=== PATIENT | male | born 1965 | race Caucasian/White ===

== ENCOUNTER 2017-06-23 09:48 | Emergency (ER) | payer MEDICAID ==
[~2017-06-23] VITALS: Ht 182.9 cm; Wt 54.0 kg
[2017-06-23 12:01] VITALS: BP 128/78
== END 2017-06-23 12:01 | disposition home or self-care (01) ==
LOC: ED 09:48
DX: R33.9 Retention of urine, unspecified (principal); K59.00 Constipation, unspecified; I50.9 Heart failure, unspecified; Z88.6 Allergy status to analgesic agent; Z88.0 Allergy status to penicillin
CPT/HCPCS: Q0092

== ENCOUNTER 2017-07-22 21:36 | Emergency (ER) | payer MEDICAID ==
[2017-07-23] VITALS: BP 145/91
== END 2017-07-23 00:01 | disposition home or self-care (01) ==
LOC: ED 21:36
DX: T83.038A Leakage of other urinary catheter, initial encounter (principal); I50.9 Heart failure, unspecified; Z88.6 Allergy status to analgesic agent; Z88.0 Allergy status to penicillin

== ENCOUNTER 2017-09-07 15:09 | Emergency (ER) | payer MEDICAID ==
[~2017-09-07] VITALS: Ht 182.9 cm; Wt 53.1 kg
[2017-09-07 15:18] VITALS: Ht 182.9 cm; Wt 53.1 kg
[2017-09-07 16:27] LABS: BASOPHIL % 0.7 % (0-2); PLATELET COUNT 137 x10^3mcL (130-400)
[2017-09-07 16:30] LABS: RED CELL DISTRIBUTION WIDTH 14.6 % (11.5-14.5)
[2017-09-07 16:34] LABS: CALCIUM 8.7 mg/dL (8.5-10.1); CARBON DIOXIDE 34.9 mmol/L (21-32); CHLORIDE SERUM 101 mmol/L (98-107); CREATININE SERUM 1.1 mg/dL (0.7-1.3); GFR1 > 60 mL/min; GLUCOSE SERUM 91 mg/dL (74-106); POTASSIUM SERUM 3.1 mmol/L (3.5-5.1); SODIUM SERUM 141 mmol/L (136-145)
[2017-09-07 16:39] LABS: ALKALINE PHOSPHATASE 74 U/L (46-116); ALT/SGPT 134 U/L (16-63); AST/SGOT 125 U/L (15-37); BILIRUBIN TOTAL 0.4 mg/dL (0.20-1.00)
[2017-09-07 16:44] LABS: ALBUMIN 3.1 g/dL (3.4-5.0); TOTAL PROTEIN, SERUM 8.4 g/dL (6.4-8.2)
[2017-09-07 17:21] LABS: CK-MB 2.2 ng/mL (0-3.6)
[2017-09-07 17:23] LABS: T3 TOTAL 1.29 ng/mL
[2017-09-07 17:33] LABS: FREE T4 1.15 ng/dL (0.76-1.46); FREE THYROXINE INDEX 3.3 ug/dL (1.4-4.5); T4(THYROXINE) 10.9 ug/dL (4.7-13.3)
[2017-09-07 17:58] VITALS: BP 165/119
[2017-09-07 17:58] LABS: C REACTIVE PROTEIN 0.3 mg/dL (<=0.9)
[2017-09-07 20:07] LABS: microscopic required? YES; urine erythrocyte 2+ (NEGATIVE)
[2017-09-07 20:18] LABS: AMPHETAMINE QUAL UR POSITIVE (NEG <=1000)
== END 2017-09-07 19:16 | disposition home or self-care (01) ==
LOC: ED 15:09
PROVIDERS: Specialist
DX: R20.2 Paresthesia of skin (principal); E87.6 Hypokalemia; I50.9 Heart failure, unspecified; Z88.6 Allergy status to analgesic agent
CPT/HCPCS: 36415; 83880; 84439; G0480; Q0092

== ENCOUNTER 2018-07-02 04:01 | Inpatient (IN) | payer MEDICAID ==
[2018-07-02] VITALS (7 sets, daily range): BP systolic 141–174; BP diastolic 95–109; Ht 182.9 cm; Wt 59.0 kg
[~2018-07-02] VITALS: Ht 182.9 cm; Wt 59.0 kg
[2018-07-02 04:53] LABS: BASOPHIL % 1.2 % (0-2); PLATELET COUNT 171 x10^3mcL (130-400); RED CELL DISTRIBUTION WIDTH 12.9 % (11.5-14.5)
[2018-07-02 04:56] LABS: CARBON DIOXIDE 29.4 mmol/L (21-32); CHLORIDE SERUM 108 mmol/L (98-107); CREATININE SERUM 1.2 mg/dL (0.7-1.3); GFR1 > 60 mL/min; GLUCOSE SERUM 101 mg/dL (74-106); POTASSIUM SERUM 3.9 mmol/L (3.5-5.1); SODIUM SERUM 146 mmol/L (136-145)
[2018-07-02 05:01] LABS: ALKALINE PHOSPHATASE 62 U/L (46-116); ALT/SGPT 127 U/L (16-63); AST/SGOT 104 U/L (15-37); BILIRUBIN TOTAL 0.37 mg/dL (0.20-1.00); TOTAL PROTEIN, SERUM 7.9 g/dL (6.4-8.2)
[2018-07-02 05:03] LABS: ALBUMIN 3.3 g/dL (3.4-5.0)
[2018-07-02] MEDS ORDERED: LISINOPRIL2.5 MG PO (05:10)
[2018-07-02] MEDS ORDERED: TRIUMEQ1 TAB (05:10)
[2018-07-02] MEDS ORDERED: AZITHROMYCIN250 M1 PO (05:11)
[2018-07-02] MEDS ORDERED: BACTRIM1 TAB PO (05:11)
[2018-07-02] MEDS ORDERED: SEROSTIM4 MG (05:11)
[2018-07-02 06:34] LABS: CHOLESTEROL/HDL RATIO 2.8; MAGNESIUM 2.1 mg/dL (1.8-2.4); PHOSPHOROUS 4.1 mg/dL (2.5-4.9)
[2018-07-02 06:41] LABS: T3 TOTAL 1.61 ng/mL
[2018-07-02 06:52] LABS: FREE T4 0.93 ng/dL (0.76-1.46); FREE THYROXINE INDEX 2.2 ug/dL (1.4-4.5)
[2018-07-02 16:52] LABS: microscopic required? NO
[2018-07-02 16:57] LABS: urine erythrocyte NEGATIVE (NEGATIVE)
[2018-07-02 17:05] LABS: AMPHETAMINE QUAL UR POSITIVE (See below)
[2018-07-03 05:57] VITALS: BP 144/93
[2018-07-03 07:05] LABS: BASOPHIL % 0.3 % (0-2); PLATELET COUNT 158 x10^3mcL (130-400); RED CELL DISTRIBUTION WIDTH 12.1 % (11.5-14.5)
[2018-07-03 07:13] LABS: CALCIUM 9.1 mg/dL (8.5-10.1); CARBON DIOXIDE 27.4 mmol/L (21-32); CHLORIDE SERUM 105 mmol/L (98-107); CREATININE SERUM 1.2 mg/dL (0.7-1.3); GFR1 > 60 mL/min; GLUCOSE SERUM 194 mg/dL (74-106); SODIUM SERUM 142 mmol/L (136-145)
[2018-07-03 09:45] VITALS: BP 148/82
[2018-07-03 13:35] VITALS: BP 149/90
[2018-07-03 17:30] VITALS: BP 140/94
[2018-07-03 21:01] VITALS: BP 146/98
[2018-07-04] VITALS (8 sets, daily range): BP systolic 136–158; BP diastolic 84–106
[2018-07-04 07:42] LABS: BASOPHIL % 0 % (0-2); PLATELET COUNT 177 x10^3mcL (130-400); RED CELL DISTRIBUTION WIDTH 12.8 % (11.5-14.5)
[2018-07-04 09:25] LABS: CALCIUM 9.2 mg/dL (8.5-10.1); CARBON DIOXIDE 25.3 mmol/L (21-32); CHLORIDE SERUM 109 mmol/L (98-107); CREATININE SERUM 1.3 mg/dL (0.7-1.3); GFR1 > 60 mL/min; GLUCOSE SERUM 90 mg/dL (74-106); MAGNESIUM 2.2 mg/dL (1.8-2.4); PHOSPHOROUS 4.4 mg/dL (2.5-4.9); SODIUM SERUM 144 mmol/L (136-145)
[2018-07-04] MEDS ORDERED: BACDS PO (13:53)
[2018-07-04] MEDS ORDERED: ZITL PO (13:53)
[2018-07-04] MEDS ORDERED: PREDNISONE10 MG PO (13:54)
[2018-07-04] MEDS ORDERED: PREDNISONE20 MG PO ×2 (13:54→13:55)
[2018-07-04] MEDS ORDERED: ZES20 PO (13:54)
[2018-07-04] MEDS ORDERED: PREDNISONE2.5 MG PO (13:55)
== END 2018-07-04 19:09 | disposition home or self-care (01) | DRG 140 ==
LOC: ED 04:01 → DU 05:50
PROVIDERS: Emergency Medicine; Internal Medicine
DX: J44.1 Chronic obstructive pulmonary disease with (acute) exacerbation (principal); N17.0 Acute kidney failure with tubular necrosis; E43 Unspecified severe protein-calorie malnutrition; I11.0 Hypertensive heart disease with heart failure; J18.9 Pneumonia, unspecified organism; B20 Human immunodeficiency virus [HIV] disease; I50.32 Chronic diastolic (congestive) heart failure; K76.0 Fatty (change of) liver, not elsewhere classified; J20.9 Acute bronchitis, unspecified; J44.0 Chronic obstructive pulmonary disease with (acute) lower respiratory infection; M94.0 Chondrocostal junction syndrome [Tietze]; F15.10 Other stimulant abuse, uncomplicated; F12.10 Cannabis abuse, uncomplicated; K21.9 Gastro-esophageal reflux disease without esophagitis; I25.2 Old myocardial infarction; Z87.891 Personal history of nicotine dependence; Z86.711 Personal history of pulmonary embolism; Z68.1 Body mass index [BMI] 19.9 or less, adult; Z86.73 Personal history of transient ischemic attack (TIA), and cerebral infarction without residual deficits; Z22.322 Carrier or suspected carrier of Methicillin resistant Staphylococcus aureus
CPT/HCPCS: 83880; 84439; 85378; J0360; J1644; J1650; J1956; J2920; J2930; J3490; J7030; J7620; Q0092; Q9967

== ENCOUNTER 2018-08-24 22:48 | Emergency (ER) | payer MEDICAID ==
[~2018-08-24] VITALS: Ht 167.6 cm; Wt 74.8 kg
[~2018-08-24 22:48] MED LIST: AZITHROMYCIN250 M1 PO; BACDS PO; BACTRIM1 TAB PO; LISINOPRIL2.5 MG PO; PREDNISONE10 MG PO; PREDNISONE2.5 MG PO; PREDNISONE20 MG PO; SEROSTIM4 MG; TRIUMEQ1 TAB; ZES20 PO; ZITL PO
[2018-08-24 22:53] VITALS: Ht 167.6 cm; Wt 74.8 kg
[2018-08-25 00:09] LABS: CALCIUM 9.6 mg/dL (8.5-10.1); CHLORIDE SERUM 98 mmol/L (98-107); CREATININE SERUM 1.3 mg/dL (0.7-1.3); GFR1 > 60 mL/min; GLUCOSE SERUM 99 mg/dL (74-106); POTASSIUM SERUM 3.6 mmol/L (3.5-5.1); SODIUM SERUM 137 mmol/L (136-145)
[2018-08-25 00:13] LABS: ALKALINE PHOSPHATASE 74 U/L (46-116); ALT/SGPT 49 U/L (16-63); AST/SGOT 36 U/L (15-37); BILIRUBIN TOTAL 0.5 mg/dL (0.20-1.00)
[2018-08-25 00:14] LABS: BASOPHIL % 0.6 % (0-2); PLATELET COUNT 223 x10^3mcL (130-400)
[2018-08-25 00:16] LABS: RED CELL DISTRIBUTION WIDTH 11.3 % (11.5-14.5)
[2018-08-25 00:18] LABS: ALBUMIN 3.2 g/dL (3.4-5.0); TOTAL PROTEIN, SERUM 8.4 g/dL (6.4-8.2)
[2018-08-25 03:18] VITALS: BP 168/107
== END 2018-08-25 03:41 | disposition home or self-care (01) ==
LOC: ED 22:48
PROVIDERS: Emergency Medicine
DX: R07.89 Other chest pain (principal); R05 Cough; R11.2 Nausea with vomiting, unspecified; I50.9 Heart failure, unspecified; I11.9 Hypertensive heart disease without heart failure; Z88.6 Allergy status to analgesic agent
CPT/HCPCS: 83880; 87804; J2270; J2405; J3490; J7030; Q0092

== ENCOUNTER 2018-11-07 22:47 | Inpatient (IN) | payer OTHER ==
[~2018-11-07] VITALS: Ht 182.9 cm; Wt 53.5 kg
[2018-11-07 22:55] VITALS: Ht 182.9 cm; Wt 53.5 kg
[2018-11-08] VITALS (8 sets, daily range): BP systolic 126–167; BP diastolic 69–109
[2018-11-08 01:27] LABS: BASOPHIL % 0.9 % (0-2); PLATELET COUNT 165 x10^3mcL (130-400)
[2018-11-08 01:28] LABS: RED CELL DISTRIBUTION WIDTH 14.7 % (11.5-14.5)
[2018-11-08 01:42] LABS: CALCIUM 8.9 mg/dL (8.5-10.1); CARBON DIOXIDE 27.7 mmol/L (21-32); CHLORIDE SERUM 105 mmol/L (98-107); CREATININE SERUM 1.1 mg/dL (0.7-1.3); GFR1 > 60 mL/min; GLUCOSE SERUM 89 mg/dL (74-106); POTASSIUM SERUM 4.2 mmol/L (3.5-5.1); SODIUM SERUM 141 mmol/L (136-145)
[2018-11-08 01:46] LABS: ALKALINE PHOSPHATASE 71 U/L (46-116); ALT/SGPT 95 U/L (16-63); AST/SGOT 62 U/L (15-37); BILIRUBIN TOTAL 0.4 mg/dL (0.20-1.00); FREE T4 1.19 ng/dL (0.76-1.46); LIPASE 288 IU/L (73-393); TOTAL PROTEIN, SERUM 7.8 g/dL (6.4-8.2)
[2018-11-08 01:47] LABS: ALBUMIN 3.2 g/dL (3.4-5.0)
[2018-11-08 06:30] LABS: BASOPHIL % 0.2 % (0-2); PLATELET COUNT 155 x10^3mcL (130-400); RED CELL DISTRIBUTION WIDTH 14.5 % (11.5-14.5)
[2018-11-08 06:57] LABS: CALCIUM 8.9 mg/dL (8.5-10.1); CARBON DIOXIDE 27.6 mmol/L (21-32); CHLORIDE SERUM 106 mmol/L (98-107); CREATININE SERUM 1.2 mg/dL (0.7-1.3); GFR1 > 60 mL/min; GLUCOSE SERUM 143 mg/dL (74-106); MAGNESIUM 2.2 mg/dL (1.8-2.4); PHOSPHOROUS 2.7 mg/dL (2.5-4.9); POTASSIUM SERUM 4.5 mmol/L (3.5-5.1); SODIUM SERUM 140 mmol/L (136-145)
[2018-11-09 05:29] VITALS: BP 144/94
[2018-11-09 06:35] LABS: BASOPHIL % 0.1 % (0-2); PLATELET COUNT 156 x10^3mcL (130-400)
[2018-11-09 06:42] LABS: RED CELL DISTRIBUTION WIDTH 14.9 % (11.5-14.5)
[2018-11-09 06:48] LABS: CALCIUM 8.6 mg/dL (8.5-10.1); CHLORIDE SERUM 109 mmol/L (98-107); GFR1 > 60 mL/min; GLUCOSE SERUM 106 mg/dL (74-106); MAGNESIUM 1.9 mg/dL (1.8-2.4); PHOSPHOROUS 3.6 mg/dL (2.5-4.9); POTASSIUM SERUM 4.4 mmol/L (3.5-5.1); SODIUM SERUM 141 mmol/L (136-145)
[2018-11-09 07:08] LABS: AMPHETAMINE QUAL UR POSITIVE (See below)
[2018-11-09 10:26] VITALS: BP 145/81
[2018-11-09 14:55] VITALS: BP 156/93
[2018-11-09 16:27] VITALS: BP 167/104
[2018-11-09 20:23] VITALS: BP 169/104
[2018-11-09 21:38] VITALS: BP 154/95
[2018-11-10] VITALS (7 sets, daily range): BP systolic 148–167; BP diastolic 86–97
[2018-11-10 06:59] LABS: CALCIUM 8.9 mg/dL (8.5-10.1); CARBON DIOXIDE 23.2 mmol/L (21-32); CHLORIDE SERUM 110 mmol/L (98-107); CREATININE SERUM 1.1 mg/dL (0.7-1.3); GFR1 > 60 mL/min; GLUCOSE SERUM 111 mg/dL (74-106); MAGNESIUM 2.1 mg/dL (1.8-2.4); PHOSPHOROUS 3.4 mg/dL (2.5-4.9); POTASSIUM SERUM 4.2 mmol/L (3.5-5.1); SODIUM SERUM 143 mmol/L (136-145)
[2018-11-10 07:37] LABS: BASOPHIL % 0.2 % (0-2); PLATELET COUNT 171 x10^3mcL (130-400); RED CELL DISTRIBUTION WIDTH 14.5 % (11.5-14.5)
[2018-11-11 07:04] VITALS: BP 165/108
[2018-11-11 08:51] VITALS: BP 159/96
[2018-11-11 10:26] VITALS: BP 159/96
[2018-11-11 12:09] VITALS: BP 127/66
[2018-11-11 12:56] VITALS: BP 159/96
== END 2018-11-11 15:07 | disposition home or self-care (01) | DRG 141 ==
LOC: ED 22:47 → DU 11-08 02:24
PROVIDERS: Emergency Medicine; ADMIT Internal Medicine
DX: J45.901 Unspecified asthma with (acute) exacerbation (principal); J96.00 Acute respiratory failure, unspecified whether with hypoxia or hypercapnia; N17.0 Acute kidney failure with tubular necrosis; B20 Human immunodeficiency virus [HIV] disease; I11.0 Hypertensive heart disease with heart failure; I50.40 Unspecified combined systolic (congestive) and diastolic (congestive) heart failure; G90.8 Other disorders of autonomic nervous system; R25.1 Tremor, unspecified; R74.0 Nonspecific elevation of levels of transaminase and lactic acid dehydrogenase [LDH]; R29.6 Repeated falls; F17.210 Nicotine dependence, cigarettes, uncomplicated; Z88.6 Allergy status to analgesic agent; Z68.1 Body mass index [BMI] 19.9 or less, adult
CPT/HCPCS: 83880; 84439; 87804; 99406; G0378; J0360; J2920; J2930; J7030; J7620; J7626; Q0092

== ENCOUNTER 2018-11-17 18:35 | Emergency (ER) | payer OTHER ==
[~2018-11-17] VITALS: Ht 182.9 cm; Wt 77.1 kg
[2018-11-17 19:14] VITALS: Ht 182.9 cm; Wt 77.1 kg
[2018-11-17 20:38] LABS: PLATELET COUNT 182 x10^3mcL (130-400); RED CELL DISTRIBUTION WIDTH 14.6 % (11.5-14.5)
[2018-11-17 20:47] LABS: CALCIUM 8.9 mg/dL (8.5-10.1); CARBON DIOXIDE 28.9 mmol/L (21-32); CHLORIDE SERUM 104 mmol/L (98-107); GFR1 > 60 mL/min; GLUCOSE SERUM 84 mg/dL (74-106); POTASSIUM SERUM 4.5 mmol/L (3.5-5.1); SODIUM SERUM 140 mmol/L (136-145)
[2018-11-17 20:52] LABS: ALKALINE PHOSPHATASE 60 U/L (46-116); ALT/SGPT 169 U/L (16-63); AST/SGOT 93 U/L (15-37); BILIRUBIN TOTAL 0.44 mg/dL (0.20-1.00); TOTAL PROTEIN, SERUM 7.3 g/dL (6.4-8.2)
[2018-11-17 21:59] VITALS: BP 143/86
== END 2018-11-17 21:59 | disposition home or self-care (01) ==
LOC: ED 18:35
PROVIDERS: Emergency Medicine
DX: J45.901 Unspecified asthma with (acute) exacerbation (principal); R53.1 Weakness; M79.10 Myalgia, unspecified site; M54.5 Low back pain; F17.210 Nicotine dependence, cigarettes, uncomplicated; I11.0 Hypertensive heart disease with heart failure; I50.9 Heart failure, unspecified; Z88.6 Allergy status to analgesic agent
CPT/HCPCS: 99406; J2270; J2405; J7030; J7620; Q0092

== ENCOUNTER 2018-11-28 16:06 | Emergency (ER) | payer OTHER ==
[~2018-11-28] VITALS: Ht 182.9 cm; Wt 50.8 kg
[2018-11-28 16:15] VITALS: Ht 182.9 cm; Wt 50.8 kg
[2018-11-28 16:51] LABS: BASOPHIL % 0.9 % (0-2); CALCIUM 8.9 mg/dL (8.5-10.1); CARBON DIOXIDE 30.5 mmol/L (21-32); CHLORIDE SERUM 101 mmol/L (98-107); CREATININE SERUM 1.2 mg/dL (0.7-1.3); GFR1 > 60 mL/min; GLUCOSE SERUM 83 mg/dL (74-106); PLATELET COUNT 160 x10^3mcL (130-400); POTASSIUM SERUM 4.2 mmol/L (3.5-5.1); RED CELL DISTRIBUTION WIDTH 14.4 % (11.5-14.5); SODIUM SERUM 138 mmol/L (136-145)
[2018-11-28 16:55] LABS: ALKALINE PHOSPHATASE 60 U/L (46-116); ALT/SGPT 184 U/L (16-63); AMYLASE 105 U/L (25-115); AST/SGOT 123 U/L (15-37); BILIRUBIN TOTAL 0.37 mg/dL (0.20-1.00); LIPASE 246 IU/L (73-393); MAGNESIUM 2.1 mg/dL (1.8-2.4); TOTAL PROTEIN, SERUM 6.9 g/dL (6.4-8.2)
[2018-11-28 16:58] LABS: ALBUMIN 2.9 g/dL (3.4-5.0)
[2018-11-28 20:45] VITALS: BP 175/80
== END 2018-11-28 20:45 | disposition home or self-care (01) ==
LOC: ED 16:06
PROVIDERS: Emergency Medicine
DX: E86.0 Dehydration (principal); R53.1 Weakness
CPT/HCPCS: 87804; G0480; J7030

== ENCOUNTER 2019-02-05 18:57 | Inpatient (IN) | payer OTHER ==
[~2019-02-05] VITALS: Ht 177.8 cm; Wt 55.0 kg
[~2019-02-05 18:57] MED LIST changes: -TRIUMEQ1 TAB; +TRIUMEQ1 TAB PO
--- NOTE | 2019-02-05 19:10 | NUR ---
BIBA FOR GEN WEAKNESS X3 DAYS; PER MEDIC PT HAS HAD DIFFICULTY GETTING IN AND OUT OF WC WHICH IS NOT NORMAL. ERYTHEMA TO BLE, PER MEDIC PT FELL ASLEEP IN TENT WITH LEGS OUT, THUS GETTING SUNBURNT. REPORTS GIVEN TO HENRIETTA COLON.
--- NOTE | 2019-02-05 19:19 | NUR ---
DR. BURNS AT BEDSIDE FOR MSE
--- NOTE | 2019-02-05 19:46 | NUR ---
PT NOTED TO BE INCONTINENT OF STOOL AND URINE, PT CLEANED UP.
[2019-02-05 19:58] LABS: BASOPHIL % 0.2 % (0-2); PLATELET COUNT 162 x10^3mcL (130-400); RED CELL DISTRIBUTION WIDTH 14.1 % (11.5-14.5)
[2019-02-05 19:59] LABS: CALCIUM 9.5 mg/dL (8.5-10.1); CARBON DIOXIDE 27.1 mmol/L (21-32); CREATININE SERUM 1.5 mg/dL (0.7-1.3); POTASSIUM SERUM 3.8 mmol/L (3.5-5.1)
[2019-02-05 20:15] LABS: BILIRUBIN TOTAL 0.9 mg/dL (0.20-1.00); TOTAL PROTEIN, SERUM 7.6 g/dL (6.4-8.2)
[2019-02-05 20:22] LABS: UA SPECIFIC GRAVITY 1.025 (1.005-1.035); microscopic required? YES; urine erythrocyte 2+ (NEGATIVE)
--- NOTE | 2019-02-05 20:49 | NUR ---
PT REMAINS FREE FROM S/S OF DISTRESS, RESTING WITH EYES CLOSED, RESPONDS TO VERBAL STIMULI. RESPIRATIONS EVEN AND UNLABORED. SAFETY PRECAUTIONS IN PLACE
--- NOTE | 2019-02-05 21:10 | NUR ---
MEDICATED PER EMAR. PT REMAINS FREE FROM S/S OF DISTRESS, RESPIRATIONS EVEN AND UNLABORED. SAFETY PRECAUTIONS IN PLACE
[2019-02-05 21:38] LABS: AMPHETAMINE QUAL UR POSITIVE (See below)
--- NOTE | 2019-02-05 22:34 | NUR ---
PT CONTINUES TO REST WITH EYES CLOSED, RESPIRATIONS EVEN AND UNLABORED. SAFETY PRECAUTIONS IN PLACE
--- NOTE | 2019-02-05 22:44 | NUR ---
SPOKE TO DEBORAH FROM [facility], ALL QUESTIONS AND CONCERNS WERE ADDRESSED
--- NOTE | 2019-02-05 23:40 | NUR ---
REPORT GIVEN TO TEJ SHRESTHA, ALL QUESTIONS AND CONCERNS WERE ADDRESSED
--- NOTE | 2019-02-05 23:48 | NUR ---
RECEIVED PT FROM ED VIA KARLA, CAME IN DUE TO BLE REDNESS AND PAIN X3 DAYS.AAOX4. W/ MILD GARBLED SPEECH. ABLE TO FOLLOW COMMANDS. NO SOB NOTED, CRACKLES NOTED ON AUSCULTATION, O2 SAT=98%, RA. DENIES CHEST PAIN/PRESSURE, SR ON THE MONITOR. DENIES ABDOMINAL DISCOMFORT. W/ DECREASED SENSATION, NUMBNESS AND TINGLING SENSATION ON BLE. W/ ERYTHEMA ON BLE, BLANCHABLE ERYTHEMA ON BUTTOCKS, NON-BLANCHABLE ERYTHEMA ON THE RIGHT BUTTOCK AND SMALL SKIN TEAR ON THE RIGHT FOOT (LATERAL OUTER ASPECT). IV SITE PATENT AND INTACT. SIDE RAILS UPX2. CALL LIGHT ON REACH. PRIMARY NURSE DESHAWN AT BEDSIDE FOR CONTINUITY OF CARE
[2019-02-06 00:16] VITALS: BP 154/90
--- NOTE | 2019-02-06 01:06 | NUR ---
NOTED PT ALSO HAS BLANCHABLE ERYTHEMA ON BILATERAL ELBOWS, OPTIFOAM IN PLACE. PT HAD SMALL SOFT BM, CLEANED AND MADE COMFORTABLE. OPTIFOAM PLACED ON THE BUTTOCKS. PLACED ON AIR MATTRESS.
--- NOTE | 2019-02-06 01:10 | NUR ---
PT RESTING IN BED COMFORTABLY. NO ACUTE DISTRESS NOTED. EVEN AND UNLABORED RESPIRATIONS ON RA WITH NONPRODUCTIVE COUGH NOTED. IV PATENT AND INTACT, FLUIDS STARTED. OPTIFOAM APPLIED TO SACRAL AREA AND ELBOWS. BED IN LOWEST POSITION. AIR MATTRESS IN USE. SIDE RAILS UP X2. CALL LIGHT WITHIN REACH. WILL CONTINUE TO MONITOR.
[2019-02-06 02:15] VITALS: BP 154/90
[2019-02-06 05:25] VITALS: BP 155/99
--- NOTE | 2019-02-06 06:44 | NUR ---
PT SLEPT IN INTERVALS THROUGHOUT THE SHIFT. NO ACUTE CHANGES NOTED. EVEN AND UNLABORED RESPIRATIONS ON RA WITH NONPRODUCTIVE COUGH NOTED. RT PROTOCOL IN PLACE. IV PATENT AND INTACT RUNNING FLUIDS PER EMAR. ALL NEEDS TENDED TO AND MET. ALL SCHEDULE MEDS GIVEN. BED IN LOWEST POSITION. AIR MATTRESS IN USE. SIDE RAILS UPX2. CALL LIGHT WITHIN REACH. WILL ENDORSE TO ONCOMING SHIFT.
[2019-02-06 06:50] LABS: BASOPHIL % 0.2 % (0-2); RED CELL DISTRIBUTION WIDTH 13.8 % (11.5-14.5)
[2019-02-06 06:58] LABS: CALCIUM 8.6 mg/dL (8.5-10.1); CARBON DIOXIDE 29.2 mmol/L (21-32); CREATININE SERUM 1.4 mg/dL (0.7-1.3); POTASSIUM SERUM 3.9 mmol/L (3.5-5.1)
--- NOTE | 2019-02-06 07:27 | NUR ---
ASSUMED CARE OF PATIENT. SEEN RESTING IN BED. EASILY AROUSABLE. PATIENT HAS SLURRED AND SLOW SPEECH. IV ON RAC PATENT AND INFUSING 100ML/HR NS. WILL CONTINUE TO MONITOR.
--- NOTE | 2019-02-06 09:15 | NUR ---
PATIENT MORE AWAKE, CONTINUES WITH SLOW AND SLURRED SPEECH, ALTHOUGH A&OX4.
[2019-02-06 09:19] VITALS: BP 145/94
[2019-02-06 09:20] LABS: PLATELET COUNT 128 x10^3mcL (130-400)
--- NOTE | 2019-02-06 10:17 | NUR ---
PATIENT SEEN RESTING WITH EQUAL AND UNLABORED RESPIRATIONS. NO NEW ISSUES.
--- NOTE | 2019-02-06 11:40 | NUR ---
EPISODE OF FECAL AND URINARY INCONTINENCE. PERICARE AND ADL CARE PROVIDED. NEW OPTIFOAM DRESSING PLACED ON BUTTOCKS.
--- NOTE | 2019-02-06 12:03 | NUR ---
PERICARE PROVIDED. HAVING SMALL AMOUNTS OF CONTINUOUS FECAL INCONTINENCE. HAVING DIARRHEA.
--- NOTE | 2019-02-06 12:23 | NUR ---
NEW OPTIFOAM DRESSING PLACED ON BILATERAL ELBOWS FOR NONBLANCHABLE REDNESS.
--- NOTE | 2019-02-06 12:30 | NUR ---
NOTIFIED OF PATIENT COMPLAINING OF BLE PAIN/TINGLING AND TO POSSIBLY ADVANCE PATIENTS DIET.
--- NOTE | 2019-02-06 15:25 | NUR ---
PATIENT SEEN RESTING IN BED WITH EQUAL AND UNLABORED RESPIRATIONS. NO APPARENT S/SX OF DISTRESS OR DISCOMFORT NOTED.
[2019-02-06 15:43] VITALS: Ht 177.8 cm; Wt 55.0 kg
[2019-02-06 16:22] VITALS: BP 139/89
--- NOTE | 2019-02-06 17:53 | NUR ---
PATIENT REPORTING PAIN ON RIGHT ASPECT OF HAND. LARGE BLISTER MEASURING 1.8CM X 1 CM WITH A SMALLER BLISTER UNDERNEATH MEASURING 0.5CM X 0.3CM. DRY DRESSING PLACED. PICTURE PLACED IN CHART.
--- NOTE | 2019-02-06 18:07 | NUR ---
PATIENT REPORTING HE DOES NOT HAVE TRIUMEQ. STATES HIS FRIEND WAS SUPPOSED TO BRING IT ALONG WITH THEM YESTERDAY WHILE PATIENT WAS BEING ADMITTED. FRIEND DID NOT BRING MEDICATION. PATIENT STATES HE DOES NOT HAVE TRIUMEQ ANYWHERE ELSE. ATTEMPTING TO PAGE TO UPDATE.
--- NOTE | 2019-02-06 18:45 | NUR ---
NOTIFIED OF MISSING TRIUMEQ. ORDER FOR CASE MANAGEMENT TO DETERMINE WHERE TO OBTAIN MEDICATION.
--- NOTE | 2019-02-06 18:47 | NUR ---
PATIENT SEEN RESTING IN BED WITH EQUAL AND UNLABORED RESPIRATIONS. NO APPARENT S/SX OF PAIN OR DISCOMFORT. WILL ENDORSE CARE TO ONCOMING RN.
--- NOTE | 2019-02-06 20:00 | NUR ---
PT RESTING WITH EYES CLOSED. EASILY AROUSABLE WITH VERBAL STIMULI. DENIES HEADACHE AND DIZZINESS. A/A/O X4. DENIES CHEST PAIN AND PRESSURE. BOWEL SOUNDS ACTIVE. NO C/O N/V AND ABD PAIN. MILD ERYTHEMA NOTED ON BLE, FAUSTINO ELBOWS AND BUTTOCKS. SKIN TEAR NOTED ON THE RIGHT FOOT, DRESSING NOTED ON THE RIGHT HAND C/D/I. IV INTACT ON THE RAC INFUSING WITH NS AT 100 ML/HR. ON AIR MATTRESS. MADE PT COMFORTABLE. PLACED CALL LIGHT WITH IN REACH. WILL CONTINUE TO MONITOR.
[2019-02-06 22:21] VITALS: BP 149/86
[2019-02-07] VITALS (9 sets, daily range): BP systolic 143–172; BP diastolic 86–103
--- NOTE | 2019-02-07 01:02 | NUR ---
PT RESTING WITH EYES CLOSED. NO DISTRESS AND DISCOMFORT NOTED. WILL CONTINUE TO MONITOR.
--- NOTE | 2019-02-07 07:02 | NUR ---
PT BLOOD PRESSURE HIGH. GAVE PT 0900 SCHEDULED HYDRALAZINE NOW. PT TOLERATED IT WELL. WILL ENDORSE TO THE AM NURSE ACCORDINGLY.
--- NOTE | 2019-02-07 07:27 | NUR ---
ASSUMED CARE OF PATIENT. PATIENT SLEEPING BUT EASILY AROUSABLE. WILL CONTINUE TO MONTIOR.
[2019-02-07 07:44] LABS: BASOPHIL % 0.4 % (0-2); PLATELET COUNT 107 x10^3mcL (130-400); RED CELL DISTRIBUTION WIDTH 13.6 % (11.5-14.5)
--- NOTE | 2019-02-07 08:28 | NUR ---
BP 172/103 (102). LENS INSPECTOR JALEN NOTIFIED. PLAN TO DO BLADDER SCAN PATIENT HAS BEEN COMPLAINING OF DIFFICULTY URINATING.
[2019-02-07 08:48] LABS: ALKALINE PHOSPHATASE 48 U/L (46-116); ALT/SGPT 170 U/L (16-63); AST/SGOT 145 U/L (15-37); CALCIUM 8.1 mg/dL (8.5-10.1); CARBON DIOXIDE 17.5 mmol/L (21-32); CHLORIDE SERUM 111 mmol/L (98-107); GFR1 > 60 mL/min; GLUCOSE SERUM 81 mg/dL (74-106); PHOSPHOROUS 2.4 mg/dL (2.5-4.9); POTASSIUM SERUM 4.3 mmol/L (3.5-5.1); SODIUM SERUM 142 mmol/L (136-145)
[2019-02-07 08:50] LABS: TOTAL PROTEIN, SERUM 5.8 g/dL (6.4-8.2)
--- NOTE | 2019-02-07 08:54 | NUR ---
BLADDER SCAN REVEALS 483ML OF URINARY RETENTION. DULSER JALEN NOTIFIED. PLAN FOR INFANTE CATH.
--- NOTE | 2019-02-07 10:00 | NUR ---
INFANTE CATHETER INSERTED WITH NO ISSUE. PATENT AND DRAINING YELLOW URINE WITH DEBRIS. PERICARE ALSO PROVIDED. NEW OPTIFOAM WITH ZGUARD PLACED ON SACCRUM FOR SOILAGE.
--- NOTE | 2019-02-07 10:27 | NUR ---
BLISTER ON LEFT LEG NOTED. MEASURING 4 CM X 2.5 CM. DRY DRESSING APPLIED. PICTURE PLACED IN CHART.
--- NOTE | 2019-02-07 11:04 | NUR ---
BP 162/95 (117) APPROXIMATELY 1 HOUR AFTER INFANTE CATHTER INSERTION. PRODUCE DEPARTMENT SUPERVISOR JALEN NOTIFIED. ORDER FOR HYDRALAZINE PUSH AND TO BE PLACED ON TELE.
--- NOTE | 2019-02-07 11:32 | NUR ---
HYDRALAZINE PUSH PROVIDED.
--- NOTE | 2019-02-07 14:41 | NUR ---
TELE READING BACK FOR SR WITH ELEVATED ST AND ELEVATED T WAVES. AUTOMOBILE SERVICE ADVISOR JALEN NOTIFIED. BP ALSO 176/98 (124) WITH HR 89. NEW ORDER FOR METOPROLOL 25MG PO DAILY TO BE INITIATED.
--- NOTE | 2019-02-07 15:30 | NUR ---
NO COMPLAINTS OF HEADACHE OR PAIN.
--- NOTE | 2019-02-07 15:32 | NUR ---
REDISCUSSED TRIUMEQ ISSUE WITH CHARGE NURSE. TRIUMEQ TO BE LEFT ALONE IT WOULD BE A HIPPA VIOLATION FOR CASE MANAGEMENT TO ASK FRIENDS TO BRING MEDICATION FOR PATIENT. TRIUMEQ TO REMAIN UNVERIFIED.
--- NOTE | 2019-02-07 16:13 | NUR ---
BP 171/102 (125). EXTERNAL RELATIONS DIRECTOR JALEN NOTIFIED. STAT EKG, KUB, AND CXR. IVP 10MG HYDRALAZINE ALSO TO BE PROVIDED.
--- NOTE | 2019-02-07 16:19 | NUR ---
D/C KUB. CONTINUE WITH STAT EKG AND CXR. PRN HYDRALAZINE TO BE ADDED.
--- NOTE | 2019-02-07 16:47 | NUR ---
YBP 151/87 (117) HR 84 S/P 10MG HYDRALAZINE PUSH. PATIENT REMAINS ASYMPTOMATIC.
--- NOTE | 2019-02-07 17:34 | NUR ---
ADL CARE PROVIDED. NEW OPTIFOAM WITH ZGUARD PLACED ON BUTTOCKS PER SOILAGE. BLISTER ON LEFT LEG DRAINING CLEAR FLUID.
--- NOTE | 2019-02-07 18:45 | NUR ---
PATIENT SEEN RESTING IN BED WITH EQUAL AND UNLABORED RESPIRATIONS. INFANTE CATHTER REMAINS PATENT AND DRAINING YELLOW URINE. IV PATENT AND INTACT, INFUSING 100ML NS. WILL ENDORSE CARE TO ONCOMING RN.
--- NOTE | 2019-02-07 19:15 | NUR ---
REPORT RECEIVED FROM DAY SHIFT RN. PATIENT WAS SEEN AND IS RESTING COMFORTABLY IN BED. BREATHING EVEN ON ROOM AIR. NO SOB OR RESP DISTRESS NOTED. NO C/O PAIN. DENIES CHEST PAIN. IV TO THE RAC INFUSING WELL. PATENT AND INTACT. NO REDNESS OR SWELLING NOTED. INFANTE CATH IN PLACE DRAINING TIMOTEO URINE BY GRAVITY. COMFORT AND SAFETY MEASURES MAINTAINTED. BED IS LOCKED AND IN THE LOWEST POSITION. SIDE RAILS UP X2. CALL LIGHT IS WITHIN REACH. WILL CONTINUE TO MONITOR.
[2019-02-08] VITALS (7 sets, daily range): BP systolic 124–182; BP diastolic 79–106
--- NOTE | 2019-02-08 01:43 | NUR ---
PATIENT AWAKE IN BED WATCHING TV. NO DISTRESS NOTED. NO C/O PAIN. INFANTE CATH IN PLACE DRAINING TIMOTEO URINE BY GRAVITY. DENIES CHEST PAIN. IV TO THE RAC INFUSING WELL. PATENT AND INTACT. NO REDNESS OR SWELLING NOTED. COMFORT AND SAFETY MEASURES MAINTAINED. CALL LIGHT IS WITHIN REACH. WILL CONTINUE TO MONITOR.
--- NOTE | 2019-02-08 05:45 | NUR ---
PRN HYDRALAZINE IVP WAS ADMINISTERED PRESCRIBED FRO HIGH DBP. BP 166/98. WILL CONTINUE TO MONITOR AND REASSESS BP/ CALL LIGHT IS WITHIN REACH. NO DISTRESS NOTED.
--- NOTE | 2019-02-08 06:44 | NUR ---
PATIENT SLEPT IN INTERVALS THROUGHOUT THE NIGHT. NO ACUTE CHANGES NOTED. BREATHING EVEN ON ROOM AIR. NO DISTRESS NOTED. IV TO THE RAC INFUSING WELL. PATENT AND INTACT. NO REDNESS OR SWELLING NOTED. INFANTE IN PLACE DRAINING TIMOTEO URINE BY GRAVITY. INCONTINENT OF STOOL THROUHGOUT THE NIGHT. COMFORT AND SAFETY MEASURES MAINTAINED. CALL LIGHT IS WITHIN REACH. WILL ENDORSE CARE TO DAY SHIFT RN.
--- NOTE | 2019-02-08 07:06 | NUR ---
STENO TYPIST REPORTED BP IA 160/100 AFTER PRN HYRDRALAZINE. WILL ENDORSE TO DAY SHIFT RN
[2019-02-08 07:39] LABS: CALCIUM 8.1 mg/dL (8.5-10.1); CARBON DIOXIDE 24.4 mmol/L (21-32); CHLORIDE SERUM 107 mmol/L (98-107); CREATININE SERUM 0.9 mg/dL (0.7-1.3); GFR1 > 60 mL/min; GLUCOSE SERUM 88 mg/dL (74-106); SODIUM SERUM 142 mmol/L (136-145)
--- NOTE | 2019-02-08 07:40 | NUR ---
RC'D PT RESTING IN BED WITH NO APPARENT SIGNS OF DISTESS. A/A/O/X4, SPEECH CLEAR AND APPROPRIATE. DENIES GRAVES/DIZZINESS. ON TELE, DENIES CHEST PAIN/PRESSURE. PALP PULSES, NO EDEMA NOTED. RESPIRATIONS EQUAL AND UNLABORED. LUNGS DIM IN BASES NOTED WITH CRACKLES. ON RA, DENIES SOB. ABDOMEM SOFT. ACTIVE BS. DENIES N/V AT THIS TIME. FC WITH TIMOTEO URINE DRAINING TO GRAVITY, WNL. GENERALIZED WEAKNESS. PT ABLE TO REPOSITION SELF. IV PATENT AND INTACT. BED IN LOW POSITION. CALL LIGHT IN REACH. WILL CONTINUE TO MONITOR
[2019-02-08 07:51] LABS: BASOPHIL % 0.4 % (0-2); PLATELET COUNT 142 x10^3mcL (130-400); RED CELL DISTRIBUTION WIDTH 13.6 % (11.5-14.5)
--- NOTE | 2019-02-08 08:37 | NUR ---
AM MEDICATIONS GIVEN. PT TOLERATED WELL. RESPIRATIONS EQUAL AND UNLABROED. ON RA, DENIES SOB. PT C/O OF DISCOMFORT TO BLE, WILL NOTIFY MD FOR PAIN MEDICATION. RT PRESENT AT BEDSIDE. BED IN LOW POSITION. CALL LIGHT IN REACH. WILL CONTINUE TO MONITOR
--- NOTE | 2019-02-08 10:05 | NUR ---
BP RECHECKED AT THIS TIME, 149/93 HR 91. ATIVAN GIVEN FOR AGITATION, PT TOLERATED WELL. RESPIRATIONS EQUAL ANDUNLABORED. ON RA, DENIES SOB. BED IN LOW POSITION. CALL LIGHT IN REACH. WILL CONTINUE TO MONITOR
--- NOTE | 2019-02-08 13:31 | NUR ---
PT RESTING IN BED WITH NO APPARENT SIGNS OF DISTRESS. RESPIRAITONS EQUAL AND UNLABORED. ON RA, DENIES SOB. BED IN LOW POSITION. CALL LIGHT IN REACH. WILL CONTINUE TO MONITOR
--- NOTE | 2019-02-08 13:33 | NUR ---
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 Meds: Ativan, Colace, Hydralazine, Lopressor, Neurotin, Protonix, Sodium chl 0.9%, Tylenol, Zofran Diet: Regular PO Intakes: Reg: (02/06) CL B - 100%, (02/07) Regular D - 100%; overall average: 100% x 3 meals. This provides ~2696 kcal and 121 gm protein to meet >100% estimated kcal and > 100% est protein needs; adequate. Ht: 70 inches/5'10" Wt: 55.055 kg/121 pounds BMI: 17.4 kg/m2, underweight for age. 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 -Pt is homeless per H&P. -Per physician progress note (02/08), Pt is moderate distress, F/C bothering him, feels uncomfortable. -Pt has had good PO intake since admission, denies GI distress. Problem with: N: no V: no D: no C: no Problems with: Chewing: no Swallowing: no Current appetite: Good Recent wt changes: Wt loss due to dx AIDS Vitamin/Supplement: unable to obtain Special Diet at Home: Pt is homeless Physical activity: Pt is homeless Nutrition education given (specify specific nutrition education and handout given): N/A Food-drug interactions? N/A Education given? N/A Estimated Nutritional Needs Based on actual body weight of 55 kg. Energy: 9417-1399 kcal/d (35-40 kcal/kg for AIDS/HIV, underweight) Protein: 83-110 gm/d (1.5-2.0 gm/kg for AIDS/HIV, underweight) Fluid: 5005-2500 mL/d (1 mL/kcal) or per MD. Nutrition Diagnosis 1. Increased nutrient needs related to catabolic disease as evidenced by dx AIDS/HIV. Intervention/RDN Recommendation(s): 1. Recommend continue on regular diet as tolerated. Monitor/Evaluate Goal: Intake via PO intakes to meet at least 75% of estimated needs with acceptable tolerance within 7 days. Monitor: PO intakes and/or nutrition support tolerance, Labs, GI function, Skin integrity, Weights. F/U in 7 days as high risk (02/15)
--- NOTE | 2019-02-08 13:33 | NUR ---
Intervention/RDN Recommendation(s): 1. Recommend continue on regular diet as tolerated.
--- NOTE | 2019-02-08 13:35 | NUR ---
Intervention/RDN Recommendation(s): 1. Recommend continue on regular diet as tolerated.
--- NOTE | 2019-02-08 13:35 | NUR ---
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 Meds: Ativan, Colace, Hydralazine, Lopressor, Neurotin, Protonix, Sodium chl 0.9%, Tylenol, Zofran Diet: Regular PO Intakes: Reg: (02/06) CL B - 100%, (02/07) Regular D - 100%; overall average: 100% x 3 meals. This provides ~2696 kcal and 121 gm protein to meet >100% estimated kcal and > 100% est protein needs; adequate. Ht: 70 inches/5'10" Wt: 55.055 kg/121 pounds BMI: 17.4 kg/m2, underweight for age. 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 -Pt is homeless per H&P. -Per physician progress note (02/08), Pt is moderate distress, F/C bothering him, feels uncomfortable. -Pt has had good PO intake since admission, denies GI distress. Problem with: N: no V: no D: no C: no Problems with: Chewing: no Swallowing: no Current appetite: Good Recent wt changes: Wt loss due to dx AIDS Vitamin/Supplement: unable to obtain Special Diet at Home: Pt is homeless Physical activity: Pt is homeless Nutrition education given (specify specific nutrition education and handout given): N/A Food-drug interactions? N/A Education given? N/A Estimated Nutritional Needs Based on actual body weight of 55 kg. Energy: 9102-8354 kcal/d (35-40 kcal/kg for AIDS/HIV, underweight) Protein: 83-110 gm/d (1.5-2.0 gm/kg for AIDS/HIV, underweight) Fluid: 0699-2021 mL/d (1 mL/kcal) or per MD. Nutrition Diagnosis 1. Increased nutrient needs related to catabolic disease as evidenced by dx AIDS/HIV. Intervention/RDN Recommendation(s): 1. Recommend continue on regular diet as tolerated. Monitor/Evaluate Goal: Intake via PO intakes to meet at least 75% of estimated needs with acceptable tolerance within 2-3 days. Monitor: PO intakes and/or nutrition support tolerance, Labs, GI function, Skin integrity, Weights. F/U in 2-3 days as high risk (02/10-)
--- NOTE | 2019-02-08 18:06 | NUR ---
PT RESTING IN BED SLEEPING WITH NO APPARENT S/S OF DISTRESS. PT DROWSY AT THIS TIME AND WANTS TO "BE LEFT ALONE TO SLEEP". RESPIRATIONS EQUAL AND UNLABORED. ON RA, NO RESP DISTRESS NOTED. FC WITH TIMOTEO URINE DRAINING TO GRAVITY, WNL. NO ACUTE SKIN CHANGES NOTED AT THIS TIME. NO S/S OF PAIN/DISCOMFORT. IV PATENT AND INTACT. BED IN LOW POSITION. CALL LIGHT IN REACH. WILL ENDORSE TO PATTERN GATER RN
--- NOTE | 2019-02-08 19:56 | NUR ---
SHIFT REASSESSMENT DONE.PATIENT ALERT AND ORIENTED,ASLEEP,AROUSED EASILY,DO NOT WANT TO BE DISTURBED.CRACKLES FAUSTINO.MILD COPD.GEN WEAKNESS,FALL PRECAUTION.HOMELESSNS AT 100CC/ HOUR.RAC.TELE 20 SR/ST ELEVATED ST. INCONTINENT STOOL,KEEP CLEAN AND DRY.SKIN REDNESS BLE.ELBOWS,BUTT,ON AIR MATTRESS.INFANTE INTACT.CALL LIGHT IN REACH.
--- NOTE | 2019-02-08 20:22 | NUR ---
PATIENT GIVEN PM MEDS.SWALLOWS WELL.WAS JUST FINISHING HIS DINNER,ATE WELL.
--- NOTE | 2019-02-08 22:05 | NUR ---
PATIENT IV SITE POSITIONAL,NGA OFFFERED TO PUT A NEW IV SITE,DECLINE.GABRIELLE AWARE.REMINDED PATIENT TO JUST KEEP ARM STARIGHT,NOT COOPERATIVE..
--- NOTE | 2019-02-09 00:10 | NUR ---
PT FOUND ON SITTING ON FLOOR CLOSE TO THE VENT/WINDOW AREA WHILE MAKING ROUNDS. PT STATED THAT HE WANTED TO TURN ON THE HEATER AND GOT UP BUT HIS KNEES BUCKLED DOWN AND ENDED UP SITTING ON THE FLOOR. PT INCONTINENT OF STOOLS, SOFT BROWN AND FORMED. PT ASSISTED BACK TO BED, WEAK LOWER EXTREMITIES AND NEEDED 2-3 ASSIST TO GET PATIENT BACK TO BED. VS TAKEN AND 98.3, 83 HR/SR, 20 RR, AND BP 158/101. WILL RECHECK BP AGAIN. PT INSTRUCTED TO CALL FOR CALL LIGHT FOR ASSIST AND TO STAY IN BED DUE TO HIS WEAKNESS. CALL LIGHT WITHIN REACHED. DR. CLEMENTS MADE AWARE AND CHECKED PATIENT. NO NEW ORDER AT THIS TIME. PT MOVED CLOSER TO NURSES STATION ON ROOM 248B. BED IN LOW POSITION AND LOCKED. DR. CLEMENTS ORDERED TO LEAVE INFANTE OUT FOR NOW AND REASSESSED PT IF NO VOID BY THE END OF THE SHIFT TO NOTIFY
--- NOTE | 2019-02-09 00:52 | NUR ---
PATIENT TRANSFERRED TO ROOM 248 B BY BED WITH ALL HIS BELONGINGS.PATIENT IS HOMELESS.MADE AWARE THAT HE IS NEXT TO NURSES STATION NOW SO WE CAN WATCH HIM CLOSELY FOR SAFERT.IVF NS RIGHT AC,WEXTENSION TUBING APPLIED FOR EASIER HANDLING BOTH NURSES AND PATIENT.INFANTE OUT,PER CHARGE NURSE NOT TO PUT IT BACK,URINAL AT BEDSIDE.WILL APPLY OPTIFOAM BUTT AREA.WILL PICTURE SKIN ALTERATION.PATIENT HAS ICE CHIPS,PITCHER ON HIS HAND.
--- NOTE | 2019-02-09 00:58 | NUR ---
WANTING ROOM TEMP WARM,AT 78 DEGREE.
--- NOTE | 2019-02-09 00:59 | NUR ---
BP WILL CHECKED,REFUSED AT FIRST BUT AGREED AFTER I TALKED TO HIM.
--- NOTE | 2019-02-09 01:08 | NUR ---
PATIENT BP ELEVATED 168/102.HYDRALAZINE 0.5 MG GIVEN IVP.PATIENT ANXIOUS.WANTED HEATER ON,WANTING 2 BLANKET.WATCH CLOSEL FOR SAFETY.
--- NOTE | 2019-02-09 05:38 | NUR ---
OPTIOFOANM REDNESS BUTTOCKS AREA.NO SKIN BREAKDOWN,SUNBURNT IN LEGS/REDNESS.
[2019-02-09 05:59] VITALS: BP 138/85
[2019-02-09 06:49] VITALS: BP 138/85
[2019-02-09 07:00] LABS: BASOPHIL % 0.3 % (0-2); PLATELET COUNT 145 x10^3mcL (130-400); RED CELL DISTRIBUTION WIDTH 13.5 % (11.5-14.5)
[2019-02-09 08:50] LABS: CALCIUM 8.5 mg/dL (8.5-10.1); CARBON DIOXIDE 23.3 mmol/L (21-32); CHLORIDE SERUM 111 mmol/L (98-107); CREATININE SERUM 0.8 mg/dL (0.7-1.3); GFR1 > 60 mL/min; GLUCOSE SERUM 86 mg/dL (74-106); POTASSIUM SERUM 3.5 mmol/L (3.5-5.1); SODIUM SERUM 144 mmol/L (136-145)
[2019-02-09 09:05] VITALS: BP 139/94
[2019-02-09 14:07] VITALS: BP 168/95
--- NOTE | 2019-02-09 15:30 | NUR ---
P.T. NOTES AFTER MULTIPLE ATTEMPTS PATIENT REFUSED TO BE SEEN BY P.T., AT FIRST PATIENT REQUESTED TO BE SEEN A LITTLE LATER, RETURNED BACK AND PATIENT CONTINUES TO REFUSE P.T., EXPLAINED THE IMPORTANCE OF PHYSICAL ACTIVITES BUT PATIENT BECAME MORE AGITATED. PATIENT HAS LOW MOTIVATION.
[2019-02-09 17:01] VITALS: BP 150/92
--- NOTE | 2019-02-09 19:43 | NUR ---
REPORT GIVEN TO NIGHT [facility] NURSE CARE ENDORSED
[2019-02-09 21:30] VITALS: BP 143/92
--- NOTE | 2019-02-09 22:12 | NUR ---
PT IN BED AWAKE , LUNG SOUNDS DEMINISHED NO RESP DISTRESS NOTED , PIV INTACT INFUSING WELL . CALL LIGHT WITHIN PT'S REACH , WILL CON;T TO MONITOR PT , BED ALARM ON FOR SAFTY .
[2019-02-10] MEDS ORDERED: PREDNISONE1 MG PO (00:50)
[2019-02-10] MEDS ORDERED: CLARITIN10 MG PO (00:51)
[2019-02-10] MEDS ORDERED: D3-50001 TAB PO (00:52)
[2019-02-10] MEDS ORDERED: SULFAMETHOXAZOL1 TA3 PO (00:52)
[2019-02-10] MEDS ORDERED: AZITHROMYCIN600 MG PO (00:53)
[2019-02-10] MEDS ORDERED: MEGESTROL PO (00:54)
[2019-02-10] MEDS ORDERED: ALBUTEROL3 ML (00:55)
[2019-02-10 06:11] VITALS: BP 159/101
--- NOTE | 2019-02-10 06:13 | NUR ---
BP 159/101 WILL MEDICATE PT WITH AM (0900) BP MEDSS.
[2019-02-10 06:17] LABS: BASOPHIL % 0.7 % (0-2); PLATELET COUNT 168 x10^3mcL (130-400); RED CELL DISTRIBUTION WIDTH 13.9 % (11.5-14.5)
[2019-02-10 06:34] LABS: CALCIUM 8.6 mg/dL (8.5-10.1); CARBON DIOXIDE 21.4 mmol/L (21-32); CHLORIDE SERUM 108 mmol/L (98-107); GFR1 > 60 mL/min; GLUCOSE SERUM 88 mg/dL (74-106); POTASSIUM SERUM 3.8 mmol/L (3.5-5.1); SODIUM SERUM 141 mmol/L (136-145)
--- NOTE | 2019-02-10 06:48 | NUR ---
PT'S OWN MEDS SENT TO THE PHARMACY . PIV INTACT INFUSING WELL . WILL ENDORSE TO AM NURSE TO F/U WITH PT'S BP .
--- NOTE | 2019-02-10 07:07 | NUR ---
RECEIVED PT FROM EVENT DECORATOR AND DESIGNER NURSE. PT IN BED SLEEPING, AROUSABLE, RESP E/U ON RA. NO ACUTE DISTRESS NOTED. IV TO RAC W/ NO SIGNS OF INFILTRATION, IVF INFUSING WELL. BED IN LOWEST POSITION AND CALL LIGHT WITHIN REACH. WILL CONTINUE TO MONITOR.
[2019-02-10 08:27] VITALS: BP 158/84
[2019-02-10 11:09] VITALS: BP 158/84
--- NOTE | 2019-02-10 12:33 | NUR ---
PT RESTING IN BED, AOX3, RESP E/U ON RA. NO ACUTE DISTRESS NOTED AT THIS TIME. BED IN LOWEST POSITION AND CALL LIGHT WITHIN REACH. SITTER AT BEDSIDE. WILL CONTINUE TO MONITOR.
[2019-02-10 14:30] VITALS: BP 154/93
--- NOTE | 2019-02-10 17:22 | NUR ---
PT RESTING IN BED, AOX3, RESP E/U ON RA. NO ACUTE DISTRESS NOTED. CALM AND COMPLIANT W/ MED ADMINISTRATION AT THIS TIME. IV TO RAC W/ NO SIGNS OF INFILTRATION, IVF INFUSING WELL. BED IN LOWEST POSITION AND CALL LIGHT WITHIN REACH. WILL ENDORSE TO ONCOMING NURSE.
--- NOTE | 2019-02-10 19:30 | NUR ---
CARE ASSUMED FROM OUTGOING RN. PT RESTING COMFORTABLY IN BED. NO ACUTE DISTRESS NOTED. EVEN AND UNLABORED RESPIRATIONS ON RA. ON TELE# [address] 105. IV PATENT AND INTACT RUNNING FLUIDS PER EMAR. MILD PAIN TO BLE, NO PAIN MEDICATIONS REQUIRED PER PT. BED IN LOWEST POSITION. AIR MATTRESS IN PLACE. SIDE RAILS UP X2. CALL LIGHT WITHIN REACH. WILL CONTINUE TO MONITOR.
[2019-02-10 19:50] VITALS: BP 149/89
--- NOTE | 2019-02-11 00:39 | NUR ---
PT RESTING COMFORTABLY IN BED. NO ACUTE DISTRESS NOTED. EVEN AND UNLABORED RESPIRATIONS ON RA. ON TELE #20 READING SR/ST 90'S-LOW 100'S. BED IN LOWEST POSITION. AIR MATTRESS IN USE. SIDE RAILS UP X2. CALL LIGHT WITHIN REACH. WILL CONTINUE TO MONITOR.
[2019-02-11 05:51] VITALS: BP 171/96
--- NOTE | 2019-02-11 06:49 | NUR ---
ALL NEEDS TENDED TO AND MET. ALL SCHEDULED MEDICATIONS GIVEN. AM BP 171/96 (122). HYDRALAZINE IVP GIVEN PER EMAR. CURRENT BP: 167/97. ON TELE #[address] 101 WITH OCC. PVCS. IV PATENT AND INTACT RUNNING FLUIDS PER EMAR. BED IN LOWEST POSITION. SIDE RAILS UPX2. CALL LIGHT WITHIN REACH. WILL ENDORSE TO ONCOMING SHIFT.
--- NOTE | 2019-02-11 07:40 | NUR ---
RECEIVED PT IN BED SLEEPY BUT ARROUSABLE A/OX4 WHEN AWARE. RESP EVEN AND UNLABORED WITH CLEAR BS BILAT. DENIES ANY SOB/CP/PRESSURE AT THIS TIME. NO EDEMA NOTED WITH IVF TO LFA NS AT 100ML/HR. ABD SOFT, NONTENDER WITH ACTIVE BS X4. DENIES ANY N/V AT THIS TIME. VOIDING FREELY WITH OCC STRESS INCONTINENCE. PT UP WITH PT. NOTED WITH ERYTHMA TO BILAT ELBOWS, BLE. NOTED WITH BLANCHABLE REDNESS TO BUTTOCK/SACRAL AREA. SKIN TEARS WITH SCABS TO RT FOOT. RT HAND WITH ERRYTHEMA NO VISIBLE BLISTER NOTED. PT ON LOW AIR MATTRESS. CALL LIGHT IN REACH NEEDS ATTENDED TO.
[2019-02-11 09:47] VITALS: BP 151/95
[2019-02-11] MEDS ORDERED: ROC1I IM (09:51)
--- NOTE | 2019-02-11 11:26 | NUR ---
PT RESTING WITH EYES CLOSED, FREE OF ANY APPARENT DISTRESS.
--- NOTE | 2019-02-11 14:53 | NUR ---
PT RESTING AT THIS TIME. DENIES ANY DISCOMFORT CALL LIGHT IN REACH NEEDS ATTENDED TO.
--- NOTE | 2019-02-11 17:37 | NUR ---
PT C/O PAIN 02/09 TO BLE MEDICATED PER EMAR. CONT TO MONITOR.
--- NOTE | 2019-02-11 18:45 | NUR ---
PT RESTING COMFORTABLE AT THIS TIME. DENIES ANY DISCOMFORT. VERBALIZED IMPROVEMENT WITH PAIN. CALL LIGTH IN REACH NEEDS ATTENDED TO.
--- NOTE | 2019-02-11 19:30 | NUR ---
RECIEVED PATIENT AT CHANGE OF SHIFT AWAKE, A.O X4. RESTING IN BED. ON TELE 20, SINUS TACHY 114. NO SOB NOTED ON RA. STATES HE HAS 8/10 PAIN TO HIS BLE, HE STATES IT FEELS LIKE NEUROPATHY. NO EDEMA NOTED. BLANCHABLE ERYTHEMA TO RIGHT ELBOW, OPTIFOAM IN PLACE OVER LEFT ELBOW, CDI. BLE BLOTCHY ERYTHEMA RELATED TO A PAST SUNBURN NOTED, [place]. IV TO LFA INFUSING WITHOUT ERYTHEMA OR INFILTRATION. CALL LIGHT WITHIN REACH. FALL RISK PRECAUTIONS IN PLACE. WILL CONTINUE TO MONITOR.
--- NOTE | 2019-02-11 20:53 | NUR ---
PATIENT GIVEN NORCO PER EMAR FOR 8/10 BLE PAIN.
--- NOTE | 2019-02-12 01:30 | NUR ---
PATIENT'S EYES ARE CLOSED, BREATHS EVEN. NO SIGNIFICANT EVENTS THUS FAR. IV INFUSING WELL. CALL LIGHT WITHIN REACH.
[2019-02-12 05:32] VITALS: BP 145/92
--- NOTE | 2019-02-12 06:27 | NUR ---
PATIENT IS AWAKE. IV INFUSING WELL, NO ERYTHEMA OR INFILTRATION. NO SIGNIFICANT CHANGES THIS SHIFT. CALL LIGHT WITHIN REACH. WILL ENDORSE CARE TO MORNING NURSE.
--- NOTE | 2019-02-12 06:59 | NUR ---
RECEIVED BEDSIDE REPORT FORM LAST MODEL DEPARTMENT SUPERVISOR NURSE. PATIENT IS RESTING COMFORTABLY IN BED, NO APPARENT SIGN OF PAIN, SOB, OR RESPIRATORY DISTRESS. PATIENT IS ON ROOM AIR, RESPIRATIONS EVEN, NOT LABORED. IV TOLFA IS INFUSING NS AT 100ML/HR. NO EDEMA OR ERYTHEMA NOTED AT SITE. BED IN LOW POSITION, BED RAILS UP X2, PATIENT IN AIR MATRESS. SCD'S AT BEDSIDE. QUESTIONS AND CONCERNS ADDRESSED, SAFETY PRECAUTIONS IN PLACE.
--- NOTE | 2019-02-12 08:53 | NUR ---
ADMINISTERED MORNING MEDICATION, PATIENT TOLORATED WELL. EDUCATED ON NEED FOR MEDICATION, SIDE EFFECTS AND WHAT SYMPTOMS TO REPORT. PATIENT DENIES OTHER NEEDS AT THIS TIME. SAFETY PRECAUTIONS IN PLACE.
--- NOTE | 2019-02-12 11:24 | NUR ---
PATIENT RESTING COMFORTABLY IN BED. NO APPARENT SIGNS OF PAIN, SOB, OR RESPIRATORY DISTRESS. PATIENT IS STABLE. ON ROOM AIR. IV TO LFA IS INFUSING WELL. NO EDEMA OR ERYTHEMA NOTED. PATIENT DENIES OTHER NEEDS AT THIS TIME. SAFETY PRECAUTIONS IN PLACE.
--- NOTE | 2019-02-12 11:36 | NUR ---
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 Pt said that he has good appetite and is hungry right now, however he did not eat his breakfast as it was cold. Patient is willing to consume Ensure Enlive. Patient denies N/V at this time. Estimated Nutritional Needs based on actual body weight of 55 kg Energy: 1925- 2200 kcal/d (35-40 kcal/kg) - AIDS, underweight Protein: 83-110 g/d (1.5-2.0 g/kg) - AIDS Fluid: 1380-9583 (1ml/kcal) or per MD Nutrition Diagnosis 1. Increased nutrient needs related to catabolic disease as evidenced by Dx of AIDS/HIV. 2. Underweight related to AIDS as evidenced by BMI 17.4 kg/m2 Intervention 1. Continue regular diet as tolerated. 2. Recommend Ensure Enlive BID Monitor/Evaluate Goal: Have pt meet at least 75% of estimated needs Monitor: PO intake, Labs, GI function F/U in 3-5 days as moderate risk 02/15-
--- NOTE | 2019-02-12 11:37 | NUR ---
1. Continue regular diet as tolerated. 2. Recommend Ensure Enlive BID
--- NOTE | 2019-02-12 12:07 | NUR ---
ADMINISTERED MEDICATION PER EMAR. PATIENT TOLORATED WELL. PATIENT WAS EDUCATED ON NEED FOR MEDICATION, AND SIDE EFFECTS TO REPORT. PATIENT DENIES OTHER NEEDS AT THIS TIME. SAFETY PRECAUTIONS IN PLACE. PATIENT WAS CLEARED FOR DISCHARGE AND ORDERS PALCED. WAITING FOR PLACEMENT TO ASSISTED FACILITY. QUESTIONS AND CONCERNS ADDRESSED.
--- NOTE | 2019-02-12 14:26 | NUR ---
PATIENT IS STABLE, NO APPARENT SIGNS OF PAIN, SOB, OR RESPIRATORY DISTRESS. PATIENT IS RESTING COMFORTABLY IN BED. ON ROOM AIR. RESPIRATIONS EVEN, NOT LABORED. IV IS CDI, PATENT, NO EDEMA OR ERYTHEMA NOTED AT SITE. CALL LIGHT WITHIN REACH, BED IN LOW POSITION, QUESTIONS AND CONCENRS ADDERSSED. SAFETY RPECAUTIONS IN PLACE.
[2019-02-12 14:29] VITALS: BP 154/99
--- NOTE | 2019-02-12 16:10 | NUR ---
PATIENT IS STABLE, NO APPARENT SIGNS OF PAIN, SOB, OR RESPIRATORY DISTRESS. PATIENT IS RESTING COMFORTABLY IN BED. CALL LIGHT WITHIN REACH, BED IN LOW POSITION, BED RAILS UP X2. QUESTIONS AND CONCERNS ADDRESSED. PATIENT DENIES OTHER NEEDS AT THIS TIME. SAFETY PRECAUTIONS IN PLACE.
[2019-02-12 17:15] VITALS: BP 175/99
--- NOTE | 2019-02-12 18:22 | NUR ---
PAGED WADER BOOT TOP ASSEMBLER TP MAKE AWARE OF PATIENT'S ELEVATED BP. WAITING FOR CALL BACK.
--- NOTE | 2019-02-12 18:32 | NUR ---
PATIENT IS STABLE, NO APPARENT SIGNS OF PAIN, SOB, OR RESPIRATORY DISTRESS. ON ROOM AIR, ERSPIRATIONS EVEN, NOT LABORED. ON TELE 20, CIRCULATION INTACT.PULSES PALPABLE NO EDEMA NOTED. SCD'S AT BEDSIDE. PATIENT HAS GENERAL WEAKNESS BUT US ABLE TO REPOSITION SELF IN BED. URINATES IN BEDSIDE URINAL. IV TO LFA IS 22G, NO EDEMA OR ERYTHEMA TO SIGHT NOTED. QUESTIONS AND CONCERNS ADDRESSED, SAFETY PRECAUTIONS IN PLACE. WILL ENDORSE CARE TO RELATIONS COORDINATOR NURSE.
--- NOTE | 2019-02-12 19:40 | NUR ---
REC'D PT FROM DAY NURSE. PT RESTING IN BED. AAOX4, SPEECH CLEAR, FOLLOWS COMMANDS. TELE 20. DENIES CP, DIZZINESS, OR PALPITATIONS. REPORTS MILD SOB, RT NOTIFIED TO GIVE BREATHING TREATMENT. NO EDEMA NOTED. ABD SOFT/ROUND. DENIES ABD PAIN, TENDERNESS, OR N/V. VOIDING FREELY WITH EPISODES OF INCONTINENCE. MILD GEN WEAKNESS. UP WITH MIN ASSIST. BLE DARK RED/PURPLE DISCOLORATION- REPORTS 8/10 PAIN. WILL MEDICATE WITH NORCO. C/O NUMBING/TINGLING TO BLE. IV TO LFA PATENT AND INFUSING, SITE WNL. CALL LIGHT WITHIN REACH, BED AT LOWEST POSITION. WILL CONTINUE TO MONITOR.
[2019-02-12 20:02] VITALS: BP 166/96
--- NOTE | 2019-02-12 21:00 | NUR ---
PT COMPLAING OF BLE PAIN 04/11. NORCO GIVEN PER ORDER.
[2019-02-12 22:00] VITALS: BP 162/100
--- NOTE | 2019-02-13 01:00 | NUR ---
PT RESTING WITH EYES CLOSED. NO SIGNS OF DISTRESS NOTED. EVEN AND UNLABORED BREATHING ON RA. BED AT LOWEST POSITION. WILL CONTINUE TO MONITOR.
--- NOTE | 2019-02-13 04:04 | NUR ---
I HAVE REVIEWED THE DATA COLLECTION BY RN: BRIAN SOSA ENTERED ON 02/12-02/13 I CONCUR WITH THE DATA AND ANY EXCEPTIONS OR COMMENTS ARE LISTED BELOW:
[2019-02-13 05:47] VITALS: BP 137/86
--- NOTE | 2019-02-13 05:47 | NUR ---
PT COMFORTABLE AND RESTING IN BED. EASILY AROUSED. NO COMPLAINTS AT THIS TIME. CALL LIGHT WITHIN REACH. BED AT LOWEST POSITION. WILL ENDORSE TO DAY NURSE.
[2019-02-13 07:22] VITALS: BP 148/95
--- NOTE | 2019-02-13 07:25 | NUR ---
RECEIVED PT IN NO ACUTE DISTRESS. RESTING IN BED, SLEEPING BUT EASILY AROUSABLE. BREATHING EVEN AND UNLABORED ON RA. HOB SLIGHTLY ELEVATED. INCONTINENT AT TIMES. FALL PRECAUTIONS IN PLACE. IVF INFUSING, NO REDNESS OR SWELLING. BED IN LOW POSITION, CALL LIGHT WITHIN REACH. WILL CONTINUE TO MONITOR.
--- NOTE | 2019-02-13 08:36 | NUR ---
PHYSICAL THERAPY DAILY NOTES CO-SIGN All documentation done by the Bead Wrapper for 02/13/19 has been reviewed. I agree with the documentation. Reviewed/Co-Signed by: Mary Barba PT Documentation Done by:NELSON JIMENEZ PTA FOR 02/12/19
--- NOTE | 2019-02-13 12:52 | NUR ---
PT IN NO ACUTE DISTRESS. AMBULATED TO BATHROOM AND BACK TO BED USING WALKER WITH MIN ASSIST. IV TO LFA, NO REDNESS OR SWELLING CA. LIGHT WITHIN REACH. WILL CONTINUE TO MONITOR.
[2019-02-13 16:31] VITALS: BP 133/86
--- NOTE | 2019-02-13 17:32 | NUR ---
PT RESTING IN BED WATCHING TV. NO ACUTE DISTRESS. IVF INFUSING, NO REDNESS OR SWELLING NOTED TO IV SITE. FALL PRECAUTIONS. ON AIR MATTRESS. CALL LIGHT WITHIN REACH. WILL CONTINUE TO MONITOR.
--- NOTE | 2019-02-13 18:34 | NUR ---
PT SITTING UP IN BED EATING DINNER. NO ACUTE DISTRESS. HOB ELEVATED. RESP EVEN AND UNLABORED ON RA. IVF INFUSING, NO REDNESS OR SWELLING NOTED. FALL PRECAUTIONS. BED IN LOW POSITION, CALL LIGHT WITHIN REACH. WILL ENDORSE TO ONCOMING SHIFT.
--- NOTE | 2019-02-13 20:00 | NUR ---
RECEIVED PT IN BED, ALERT AND ORIENTED. ABLE TO VERBALIZE NEEDS. RESP. EVEN AND UNLABORED. ON ROOM AIR, WITH SLIGHT EXP. WHEEZES, ON RT PROTOCOL. NO ACUTE DISTRESS NOTED. SR/ST ON THE MONITOR, DENIES CP. IVF, NS AT 100ML/HR, INTACT AND INFUSING VIA LFA, SITE CLEAR. ON AIR MATTRESS, ABLE TO TURN AND REPOSITION SELF IN BED. VOIDING FREELY, INCONT. AT TIMES.DENIES ANY DISCOMFORT AT THIS TIME. CALL LIGHT WITHIN REACH. WILL CONTINUE TO MONITOR.
[2019-02-13 20:12] VITALS: BP 158/94
--- NOTE | 2019-02-14 00:40 | NUR ---
EYES CLOSED, APPEARS ASLEEP, EASILY AROUSABLE. RESP. EVEN AND UNLABORED. IVF INTACT AND INFUSING WELL, SITE CLEAR. CALL LIGHT WITHIN REACH. WILL CONTINUE TO MONITOR.
[2019-02-14 05:37] VITALS: BP 154/97
--- NOTE | 2019-02-14 06:31 | NUR ---
AFEBRILE AND VITAL SIGNS STABLE.RESP. EVEN AND UNLABORED. NO ACUTE DISTRESS NOTED. DENIES PAIN OR ANY DISCOMFORT AT THIS TIME. DUE MEDS GIVEN ORDERED, BINDU. WELL. IVF INTACT AND INFUSING WELL, SITE CLEAR. KEPT COMFORTABLE. WILL CONTINUE TO MONITOR.
--- NOTE | 2019-02-14 07:25 | NUR ---
RECEIVED PT RESTING IN BED. NO ACUTE DISTRESS. SLEEPING BUT EASILY AROUSABLE. BREATHING EVEN AND UNLABORED ON RA. ON AIR MATTRESS, PT REPOSITIONS SELF IN BED. IV TO LFA, NO REDNESS OR SWELLING NOTED. FALL PRECAUTIONS. BED IN LOW POSITION, CALL LIGHT WITHIN REACH. WILL CONTINUE TO MONITOR.
[2019-02-14 08:40] VITALS: BP 145/97
--- NOTE | 2019-02-14 11:03 | NUR ---
PT RESTING IN BED WATCHING TV. NO ACUTE DISTRESS. BREATHING EVEN AND UNLABORED ON RA. IV TO LFA, NO REDNESS OR SWELLING. HOB ELEVATED. FALL PRECAUTIONS. CALL LIGHT WITHIN REACH. WILL CONTINUE TO MONITOR.
[2019-02-14 12:10] VITALS: BP 150/99
[2019-02-14 16:24] VITALS: BP 143/88
--- NOTE | 2019-02-14 17:01 | NUR ---
PT RESTING IN BED WITH EYES CLOSED, EASILY AROUSABLE. RESP EVEN AND UNLABORED ON RA. APPEARS COMFORTABLE, NO PAIN NOTED. IVF INFUSING, NO REDNESS OR SWELLING TO IV SITE. FALL PRECAUTIONS. CALL LIGHT WITHIN REACH. WILL CONTINUE TO MONITOR.
--- NOTE | 2019-02-14 18:50 | NUR ---
PT IN NO ACUTE DISTRESS. RESTING IN BED. AAOX4. RESP EVEN AND UNLABORED ON RA. NO SOB NOTED. IVF INFUSING, NO REDNESS OR SWELLING NOTED. FALL PRECAUTIONS. HOB SLIGHTLY ELEVATED. BED IN LOW POSITION, CALL LIGHT WITHIN REACH. WILL ENDORSE TO ONCOMING SHIFT.
[2019-02-14 19:23] VITALS: BP 130/86
--- NOTE | 2019-02-14 19:58 | NUR ---
PT'S AWAKE SITTING ON THE EDGE OF THE BED NO ACUTE DISTRESS NOTED , LUNG SOUNDS CLEAR , ABD SOFT BS ACTIVE X4 , TELE NUMBER 20 SHOWS NSR , PIV INTACT INFUSING NS AT 100ML/HR , CALL LIGHT WITHIN PT'S REACH .
--- NOTE | 2019-02-15 01:31 | NUR ---
PT'S IN BED WITH EYES CLOSED , PIV INTACT INFUSING WELL .
[2019-02-15 04:50] VITALS: BP 136/97
--- NOTE | 2019-02-15 05:04 | NUR ---
I HAVE REVIEWED THE DATA COLLECTION BY VOLUNTEER RECRUITMENT COORDINATOR (NAME):GELACIO WILSON ENTERED ON (DATE/TIME): I CONCUR WITH THE DATA AND ANY EXCEPTIONS OR COMMENTS ARE LISTED BELOW:
--- NOTE | 2019-02-15 06:31 | NUR ---
NO CHANGES OF CONDITION NOTED , ALL DUE MEDS GIVEN NO REATION NOTED, PIV INTACT INFUSING WELL TELE NSR .
--- NOTE | 2019-02-15 07:20 | NUR ---
RECEIVED PT IN NO ACUTE DISTRESS. RESTING IN BED WITH EYES CLOSED, AROUSABLE. BREATHING EVEN AND UNLABORED ON RA. NO SOB NOTED. IVF INFUSING, NO REDNESS OR SWELLING NOTED. FALL PRECAUTIONS. ON AIR MATTRESS. BED IN LOW POSITION, CALL LIGHT WITHIN REACH. WILL CONTINUE TO MONITOR.
[2019-02-15 08:05] VITALS: BP 146/89
[2019-02-15 11:56] VITALS: BP 143/92
--- NOTE | 2019-02-15 12:41 | NUR ---
PT SITTING UP IN BED WATCHING TV. NO ACUTE DISTRESS. BREATHING EVEN AND UNLABORED ON RA. IVF INFUSING, NO REDNESS OR SWELLING TO IV SITE. FALL PRECAUTIONS. HOB ELEVATED. CALL LIGHT WITHIN REACH. WILL CONTINUE TO MONITOR.
[2019-02-15 16:25] VITALS: BP 141/94
--- NOTE | 2019-02-15 18:25 | NUR ---
PT IN NO ACUTE DISTRESS. RESTING IN BED. AAOX4. RESP EVEN AND UNLABORED ON RA. ON AIR MATTRESS, SELF-REPOSITIONS. HOB ELEVATED. FALL PRECAUTIONS. IVF INFUSING, NO REDNESS OR SWELLING NOTED. BED IN LOW POSITION, CALL LIGHT WITHIN REACH. WILL ENDORSE TO ONCOMING SHIFT.
[2019-02-15 19:28] VITALS: BP 129/83
--- NOTE | 2019-02-15 20:30 | NUR ---
PT'S IN BED RECEIVEING BREATHING TREATMENT AT THE MOMENT , NO RESP DISTRESS NOTED , LUNG SOUNDS CTA . ABD SOFT BS ACTIVE X4 , PIV INTACT INFUSING WELL , TELE NUMBER 20 SHOWS NSR . CALL LIGHT WITHIN [PT'S REACH , WILLC ON'TO MONITOR AND ASSIST PT WITH CARE .
--- NOTE | 2019-02-16 02:50 | NUR ---
PT;S IN BED WITH EYES CLOSED , TELE NSR , PIV INTACT INFUSING WELL
[2019-02-16 05:29] VITALS: BP 150/94
--- NOTE | 2019-02-16 06:47 | NUR ---
ALL DUE MEDS GIVEN NO REACTION NOTED , PIV INTACT INFUSING ROBERT BELTRÁN NSR .
--- NOTE | 2019-02-16 07:23 | NUR ---
RECEIVED PT IN NO ACUTE DISTRESS. RESTING IN BED WITH EYES CLOSED, EASILY AROUSABLE. BREATHING EVEN AND UNLABORED ON RA. RT PROTOCOL. ON AIR MATTRESS. SCABS TO BLE, ENID. FALL PRECAUTIONS IN PLACE. BED IN LOW POSITION, CALL LIGHT WITHIN REACH. WILL CONTINUE TO MONITOR.
[2019-02-16 09:08] VITALS: BP 143/89
[2019-02-16 13:02] VITALS: BP 138/92
--- NOTE | 2019-02-16 15:07 | NUR ---
PT RESTING IN BED WATCHING TV. NO ACUTE DISTRESS. HOB SLIGHTLY ELEVATED. FALL PRECAUTIONS IN PLACE. IVF INFUSING, NO REDNESS OR SWELLING NOTED. CALL LIGHT WITHIN REACH. WILL CONTINUE TO MONITOR.
--- NOTE | 2019-02-16 15:10 | NUR ---
ATTTEMPTED FOR PHYSICAL THERAPY SESSIONS, PATIENT REFUSED STATING THAT HE IS GOING TO BE DISCHARGED TODAY. EDUCATION PROVIDED REGARDING IMPORTANCE OF FUNCTIONAL MOBILITIES
--- NOTE | 2019-02-16 15:44 | NUR ---
1. Continue regular diet as tolerated w/ ensure enlive BID.
--- NOTE | 2019-02-16 15:44 | NUR ---
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 Per nutrition flowsheet (02/16), patient consumed 100% breakfast and lunch. Per HENRIETTA Unger, patient does not have any N/V/D/C at this time. Estimated Nutritional Needs based on actual body weight of 55 kg Energy: 1925- 2200 kcal/d (35-40 kcal/kg) - AIDS, underweight Protein: 83-110 g/d (1.5-2.0 g/kg) - AIDS Fluid: 3666-6346 (1ml/kcal) or per MD Nutrition Diagnosis 1. Increased nutrient needs related to catabolic disease as evidenced by Dx of AIDS/HIV. 2. Underweight related to AIDS as evidenced by BMI 17.4 kg/m2 Intervention 1. Continue regular diet as tolerated w/ ensure enlive BID. Monitor/Evaluate Goal: Have pt meet at least 75% of estimated needs Monitor: PO intake, Labs, GI function F/U in 7 days as low risk 02/23
[2019-02-16 16:49] VITALS: BP 150/95
--- NOTE | 2019-02-16 18:37 | NUR ---
PT IN NO ACUTE DISTRESS. RESTING IN BED. SLEEPING BUT AROUSABLE. BREATHING EVEN AND UNLABORED ON RA. IVF INFUSING, NO REDNESS OR SWELLING TO IV SITE. FALL PRECAUTIONS. BED IN LOW POSITION, CALL LIGHT WITHINR EACH. WILL ENDORSE TO ONCOMING SHIFT.
--- NOTE | 2019-02-16 19:30 | NUR ---
RECIEVED PATIETN AT START OF SHIFT A/O X4. ON TELE 20, NSR 93. PATIENT APPEARS COMFORTABLE, NO SOB ON RA. DENIES PAIN. IV INFUSING TO DANIEL, NO SIGNS OF INFILTRATION OR ERYTHEMA. BLE SCATTERED CLOSED SCABS NOTED. SOME FLAKY SKIN FROM PAST SUNBURN. CALL LIGHT WITHIN REACH. PATIENT INSTRUCTED TO USE CALL LIGHT FOR ALL NEEDS AND BEFORE GETTING UP OUT OF BED.
[2019-02-16 21:02] VITALS: BP 145/95
--- NOTE | 2019-02-17 | NUR ---
PATIENT RECIEVED NEW GOWN AND BLANKETS AND JELLO WITH AICHA WESTFALL PER PATIENT REQUEST.
--- NOTE | 2019-02-17 00:55 | NUR ---
PATIENT'S EYES ARE CLOSED, BREATHS EVEN AND REGULAR. IV INFUSING WITHOUT ERYTHEMA OR SIGNS OF INFILTRATION. CALL LIGHT WITHIN REACH.
[2019-02-17 05:52] VITALS: BP 152/91
--- NOTE | 2019-02-17 06:29 | NUR ---
NO SIGNIFICANT EVENTS THIS SHIFT. PATIENT'S EYES CLOSED, BREATHS EVEN. IV INFUSING AND PATENT. CALL LIGHT WITHIN REACH. WILL ENDORSE CARE TO MORNING NURSE.
--- NOTE | 2019-02-17 07:12 | NUR ---
RECEIVED BEDSIDE REPORT FROM BELT SPLICER NURSE. PATIENT IS STABLE RESTING COMFORTABLY IN BED. THERE IS A WALKER AT BEDSIDE. NO APPARENT SIGNS OF PAIN, SOB, OR RESPIRATORY DISTRESS. V TO DANIEL IS CLEAN DRY, AND PATENT INFUSING NS AT 100ML/HR. NO EDEMA OR ERYTHEMA NOTED. CALL LIGHT WITHIN REACH. BED IN LOW POSITION, BED RAILS UP X2. QUESTIOSNAND CONCERNS ADDRESSED. SAFETY PRECAUTIONS IN PLACE.
--- NOTE | 2019-02-17 07:56 | NUR ---
PHYSICAL ASSESSMENT COMPLETED. PLEASE SEE PROBLEM FOCUSED CARE FOR DETAILS.
[2019-02-17 09:03] VITALS: BP 161/80
--- NOTE | 2019-02-17 09:26 | NUR ---
ADMINISTERED MORNING MEDICATION PATIENT EDUCATED ON NEED FOR MEDICATION, AND ADVERSE EFFECTS TO REPORT. PATIENT6 TOLORATED WELL. PATIENT DENIES OTHER NEEDS AT THIS TIME. SAFETY PRECAUTIONS MAINTAINED.
--- NOTE | 2019-02-17 10:36 | NUR ---
PATIETN IS STABLE. NO APPARENT SIGNS OF PAIN, SOB, OR RESPIRATORY DISTRESS. PATIENT IS RESTING COMFORTABLY IN BED. DENIES OTHER NEEDS AT THIS TIME. SAFETY PRECAUTION IN PLACE.
[2019-02-17 12:45] VITALS: BP 137/93
[2019-02-17 12:46] VITALS: BP 148/67
--- NOTE | 2019-02-17 14:38 | NUR ---
PATIENT IS STABLE, NO APPARENT SIGNS OF PAIN, SOB, OR RESPIRATORY DISTRESS. PATIENT IS RESTING COMFORTABLY IN BED. DENIES NEEDS AT THIS TIME. CALL LIGHT WITHIN REACH, BED IN LOW POSITION, BEDRAILS UP X2. QUESTIONS AND CONCERNS ADDRESSED. SAFETY PRECAUTIONS IN PLACE.
--- NOTE | 2019-02-17 16:33 | NUR ---
PATIENT IS STABLE. NO APPARENT SIGNS OF PAIN, SOB, OR RESPIRATORY DISTRESS. ADMINISTERED MEDICATION PER EMAR. LITZYN WAS EDUCATED ON NEED FOR MED AND ADVERSE EFFECTS TO REPORT. PATIENT VERBALIZED UNDERSTANDING. PATIENT DENIES OTHER NEEDS AT THIS TIME. SAFETY PRECAUTIONS IN PLACE.
[2019-02-17 17:03] VITALS: BP 132/89
--- NOTE | 2019-02-17 17:10 | NUR ---
PATIENT IS RESTING COMFORTABLY IN BED. NO APPARENT SIGNS OF PAIN, SOB, OR RESPIRATORY [id number]. PATIENT IS RESTING COMFORTABLY IN BED. PATIETN DENIES OTHER NEEDS AT THIS TIME. CALL LIGHT WITHIN REACH, BED IN LOW POSITION. QUESTIONS AND CONCERNS ADDRESSED. SAFETY PRECAUTIONS IN PLACE.
--- NOTE | 2019-02-17 18:58 | NUR ---
PATIENT IS STABLE, NO APPARETN SIGNS OF PAIN, SOB, OR RESPIRATORY DISTRESS. PATIENT IS RESTING COMFORTABLY IN BED. CALL LIGHT WITHIN REACH, BED IN LOW POSITION. ON ROOM AIR NO APPARENT SIGNS OF PAIN, SOB, OR RESPIRAOTRY DISTRESS. QUESTIONS AND CONCERNS ADDRESSED. SAFETY PRECAUTIONS IN PLACE. WILL ENDORSE CARE TO ROUSTABOUT CREW PUSHER NURSE.
--- NOTE | 2019-02-17 20:03 | NUR ---
RECIEVED PT FROM DAY NURSE. PT RESTING COMFORTABLY IN BED WITH EYES CLOSED. WALKER AT BEDSIDE. NO SIGNS AND SYMPTOMS OF PAIN. NO SOB ON RA. DANIEL IV CDI, PATENT INFUSING 100 ML/HR. NO EDEMA NOTED, SCDS AT BEDSIDE. BED AT LOWEST POSTION, CALL LIGHT WITHIN REACH. WILL CONTINUE TO MONITOR.
[2019-02-17 21:13] VITALS: BP 133/85
--- NOTE | 2019-02-18 02:22 | NUR ---
PT RESTING COMFORTABLY IN BED, EYES CLOSED. NO S/S OF PAIN OR DISTRESS. NO SOB ON RA. CALL LIGHT WITHIN REACH. BED AT LOWEST POSITION. WILL CONTINUE TO MONITOR.
--- NOTE | 2019-02-18 05:30 | NUR ---
PT RESTING IN BED AT THIS TIME. SO S/S OF PAIN. NO SOB ON ROOM AIR. NO SIGNIFICANT CHANGES THIS SHIFT. CALL LIGHT WITHIN REACH. BED AT LOWEST POSTION. WILL ENDORSE TO DAY NURSE.
[2019-02-18 05:33] VITALS: BP 127/83
--- NOTE | 2019-02-18 06:41 | NUR ---
I HAVE REVIEWED THE DATA COLLECTION BY RN: BRIAN SOSA ENTERED ON 02/17-02/18 I CONCUR WITH THE DATA AND ANY EXCEPTIONS OR COMMENTS ARE LISTED BELOW:
--- NOTE | 2019-02-18 07:30 | NUR ---
RECEIVED PT RESTING IN BED. AAOX4. RESP EVEN AND UNLABORED ON RA. SCABS TO BLE, ENID. ON AIR MATTRESS. USING URINAL TO VOID. FALL PRECAUTIONS. BED IN LOW POSITION, CALL LIGHT WITHIN REACH. WILL CONTINUE TO MONITOR.
[2019-02-18 09:15] VITALS: BP 143/99
--- NOTE | 2019-02-18 11:53 | NUR ---
PT IN NO ACUTE DISTRESS. SLEEPING BUT EASILY AROUSABLE. RESP EVEN AND UNLABORED ON RA. HOB ELEVATED. IVF INFUSING, NO REDNESS OR SWELLING. BED IN LOW POSITION, CALL LIGHT WITHIN REACH. WILL CONTINUE TO MONITOR.
[2019-02-18 12:49] VITALS: BP 133/82
[2019-02-18 17:35] VITALS: BP 148/97
--- NOTE | 2019-02-18 18:54 | NUR ---
PT SITTING UP IN BED WATCHING TV. NO ACUTE DISTRESS. PT'S HOME MEDS RETRIEVED FROM PHARMACY AND RETURNED BACK TO PT. DISCHARGE EDUCATION PROVIDED, PT VERBALIZED UNDERSTANDING. INSTRUCTED PT TO FOLLOW UP WITH PCP. IV DC'D WITH CATHETER INTACT. BELONGINGS WITH PT. PER CM, PT WILL BE PICKED UP BY [facility] AROUND 1930. WILL ENDORSE TO ONCOMING SHIFT.
--- NOTE | 2019-02-18 20:16 | NUR ---
BOARDING CARE TRANSPORT, [facility], AT BEDSIDE TO UNIT MANAGER PATIENT. PRINTING PRESS OPERATOR APPRENTICE, RL, ALSO AT BEDSIDE. REPORT GIVEN. PT ASSISTED TO WHEELCHAIR, DISCHARGE INSTRUCTIONS GIVEN. PT IN NO ACUTE DISTRESS.
== END 2019-02-18 20:30 | DRG 890 ==
LOC: ED 18:57 → MU 23:00 → DU 23:00 → MU 02-06 05:21 → DU 02-07 11:07
PROVIDERS: Emergency Medicine; ADMIT Family Medicine
DX: A41.9 Sepsis, unspecified organism (principal); B20 Human immunodeficiency virus [HIV] disease; G92 Toxic encephalopathy; N17.0 Acute kidney failure with tubular necrosis; R65.10 Systemic inflammatory response syndrome (SIRS) of non-infectious origin without acute organ dysfunction; M62.82 Rhabdomyolysis; E86.0 Dehydration; E44.1 Mild protein-calorie malnutrition; N39.0 Urinary tract infection, site not specified; F15.10 Other stimulant abuse, uncomplicated; I10 Essential (primary) hypertension; F12.10 Cannabis abuse, uncomplicated; R74.0 Nonspecific elevation of levels of transaminase and lactic acid dehydrogenase [LDH]; F17.210 Nicotine dependence, cigarettes, uncomplicated; Z59.0 Homelessness; Z68.22 Body mass index [BMI] 22.0-22.9, adult; Z86.711 Personal history of pulmonary embolism; Z86.73 Personal history of transient ischemic attack (TIA), and cerebral infarction without residual deficits
CPT/HCPCS: 83880; 97110-GP; 97116-GP; 97530-GP; 99406; G0378; J0360; J0696; J2060; J3480; J3490; J7030; J7620; Q0092

== ENCOUNTER 2019-02-26 19:03 | Emergency (ER) | payer OTHER ==
[~2019-02-26] VITALS: Ht 182.9 cm; Wt 56.7 kg
[~2019-02-26 19:03] MED LIST changes: +ALBUTEROL3 ML; +AZITHROMYCIN600 MG PO; +CLARITIN10 MG PO; +D3-50001 TAB PO; +MEGESTROL PO; +PREDNISONE1 MG PO; +ROC1I IM; +SULFAMETHOXAZOL1 TA3 PO
[2019-02-26 19:07] VITALS: Ht 182.9 cm; Wt 56.7 kg
[2019-02-26 19:41] LABS: BASOPHIL % 0.5 % (0-2); PLATELET COUNT 168 x10^3mcL (130-400); RED CELL DISTRIBUTION WIDTH 13.4 % (11.5-14.5)
[2019-02-26 19:55] LABS: CALCIUM 9.3 mg/dL (8.5-10.1); CARBON DIOXIDE 23.9 mmol/L (21-32); CHLORIDE SERUM 103 mmol/L (98-107); CREATININE SERUM 1.3 mg/dL (0.7-1.3); GFR1 > 60 mL/min; GLUCOSE SERUM 96 mg/dL (74-106); POTASSIUM SERUM 3.8 mmol/L (3.5-5.1); SODIUM SERUM 137 mmol/L (136-145)
[2019-02-26 20:00] LABS: ALKALINE PHOSPHATASE 64 U/L (46-116); ALT/SGPT 120 U/L (16-63); AST/SGOT 67 U/L (15-37); BILIRUBIN TOTAL 0.51 mg/dL (0.20-1.00); TOTAL PROTEIN, SERUM 7.8 g/dL (6.4-8.2)
[2019-02-26 20:10] LABS: ALBUMIN 3.3 g/dL (3.4-5.0)
[2019-02-26 21:40] LABS: UA SPECIFIC GRAVITY 1.015 (1.005-1.035); microscopic required? YES; urine erythrocyte NEGATIVE (NEGATIVE)
[2019-02-26 22:52] VITALS: BP 191/111
== END 2019-02-26 22:52 | disposition home or self-care (01) ==
LOC: ED 19:03
PROVIDERS: Emergency Medicine
DX: R53.1 Weakness (principal); R42 Dizziness and giddiness; I50.9 Heart failure, unspecified; I11.0 Hypertensive heart disease with heart failure; J45.909 Unspecified asthma, uncomplicated; Z92.25 Personal history of immunosuppression therapy; Z88.6 Allergy status to analgesic agent
CPT/HCPCS: 36415; Q0092

== ENCOUNTER 2019-03-11 14:17 | Inpatient (IN) | payer OTHER ==
[~2019-03-11] VITALS: Ht 177.8 cm; Wt 61.7 kg
[2019-03-11 14:30] VITALS: Ht 177.8 cm; Wt 61.7 kg
--- NOTE | 2019-03-11 16:48 | NUR ---
PT IN ED FOR L LEG PAIN, BLACK SCABS NOTE TO LEG, WITH ERYTHEMA NOTED. PT ALSO REPORTS SOB X4 DAYS. SPEAKING IN CLEAR FULL SENTENCES. MSE BY DR BHATTI.
--- NOTE | 2019-03-11 16:55 | NUR ---
PER PT DX WITH AIDS SINCE YEAR 1996. FRIEND AT BEDSIDE AT THIS TIME.
[2019-03-11 17:33] LABS: BASOPHIL % 1.2 % (0-2); PLATELET COUNT 188 x10^3mcL (130-400)
[2019-03-11] MEDS ORDERED: BACTRIM1 TAB (17:34)
[2019-03-11 18:01] LABS: CK-MB 3.6 ng/mL (0-3.6)
[2019-03-11 18:03] LABS: FREE T4 1.13 ng/dL (0.76-1.46); FREE THYROXINE INDEX 3.3 ug/dL (1.4-4.5); T4(THYROXINE) 10.5 ug/dL (4.7-13.3)
[2019-03-11 18:05] LABS: ALBUMIN 3.4 g/dL (3.4-5.0); ALKALINE PHOSPHATASE 68 U/L (46-116); ALT/SGPT 106 U/L (16-63); AST/SGOT 74 U/L (15-37); BILIRUBIN TOTAL 0.28 mg/dL (0.20-1.00); C REACTIVE PROTEIN 0.3 mg/dL (<=0.9); CALCIUM 9.6 mg/dL (8.5-10.1); CARBON DIOXIDE 30.1 mmol/L (21-32); CHLORIDE SERUM 103 mmol/L (98-107); CREATININE SERUM 1.2 mg/dL (0.7-1.3); GFR1 > 60 mL/min; POTASSIUM SERUM 3.3 mmol/L (3.5-5.1); SODIUM SERUM 142 mmol/L (136-145)
[2019-03-11 18:06] LABS: TOTAL PROTEIN, SERUM 8.5 g/dL (6.4-8.2)
[2019-03-11 18:07] LABS: GLUCOSE SERUM 44 mg/dL (74-106)
[2019-03-11 18:09] LABS: T3 TOTAL 1.23 ng/mL
[2019-03-11 18:12] LABS: ERYTHROCYTE SED RATE 58 mm/hr (0-20)
--- NOTE | 2019-03-11 18:39 | NUR ---
I GAVE PT APPLE JUICE A LARGE CUP HE DRANK VERY WELL FOR SERUM GLUCOSE OF 44 DR BHATTI INFORMED AND AWARE OF.
--- NOTE | 2019-03-11 18:41 | NUR ---
PT IS A/AX4 HE WILL BE MOVED TO ROOM 3
--- NOTE | 2019-03-11 19:10 | NUR ---
PT REPORT RECIEVED FROM DAYANA SHRESTHA TO ASSUME PT CARE. PT CURRENTLY RESTING IN A POSITION OF COMFORT WITH EYES CLOSED. RESP EVEN AND UNLABORED, NO ACUTE DISTRESS NOTED.
--- NOTE | 2019-03-11 20:39 | NUR ---
PT RESTING IN A POSITION OF COMFORT AT THIS TIME. AOX4, RESP EVEN AND UNLABORED, NO ACUTE DISTRESS NOTED.
--- NOTE | 2019-03-11 20:48 | NUR ---
SPOKE WITH ANASTASIYA FROM PT [employer]UR[employer] TO DISCUSS PT ADMISSION. PER ANASTASIYA, SHE WILL BE REVIEWING THE CASE TO SEE IF PT MEETS INPATIENT CRITERIA.
[2019-03-11 21:32] LABS: UA SPECIFIC GRAVITY 1.015 (1.005-1.035); microscopic required? YES; urine erythrocyte NEGATIVE (NEGATIVE)
[2019-03-11 21:47] LABS: AMPHETAMINE QUAL UR POSITIVE (See below)
--- NOTE | 2019-03-11 21:52 | NUR ---
PT REPORT CALLED TO TUCKER SHRESTHA TO ASSUME PT CARE.
[2019-03-11 21:55] LABS: CHOLESTEROL/HDL RATIO 2.5; MAGNESIUM 2.1 mg/dL (1.8-2.4); PHOSPHOROUS 3.6 mg/dL (2.5-4.9)
--- NOTE | 2019-03-11 22:00 | NUR ---
PT TRANSFERRED TO [facility] 240B BY [facility] BY RAFITA SHRESTHA AND [facility]MA EMT. PT ON CM FOR TRANSFER. PT AOX4, RESP EVEN AND UNLABORED, NO ACUTE DISTRESS NOTED. PT ACCEPTED BY TUCKER SHRESTHA TO ASSUME PT CARE.
--- NOTE | 2019-03-11 22:03 | NUR ---
RECEIVD PT FROM ER, PT ADMIT FOR ASTHMA EXACERBATION, LLE CELLULITIS. PT IS VERY LETHARGIC AT THE MOVEMENT BUT AROUSABLE. PT IS VERY UNCOOPERATED DURING THE ASSESSMENT, VERY RUDE TO NURSE AND DOCTORS. LUNG SOUND CLEAR BILATERAL, NO COUGH, NO SOB, PT DENY ANY CHEST PAIN OR DISCOMFORT, BOWEL SOUND PRESENT ALL 4 QUADRANTS, NO DISTENTION, PEDAL PULSE PRESENT BOTH FEET, THERE ARE MULTIPLE OPEN WOUND WITH BLACK TISSUE WOUND BED AT LLE. IV AT LEFT AC, NO LEAKING, NO INFLTRATION. ALL ADLS ASSIST, ALL NEED MET, CALL LIGHT IN REACH, WILL CONTINUE TO MONITOR.
--- NOTE | 2019-03-11 22:05 | NUR ---
RECIEVED PATIENT FROM HENRIETTA SYLVESTER. PATIENT IS RESTING IN BED. NO DISTRESS NOTED. BREATHING EVEN ON ROOM AIR. NO SOB OR RESP DISTRESS NOTED. IV TO THE LAC. PATENT AND INTACT. NO REDNESS OR SWELLING NOTED. PATIENT IS LETHARGIC AND UNCOOPERATIVE WITH CARE. WOUND NOTED TO THE LLE. DENIES CHEST PAIN/PRESSURE. NO C/O PAIN AT THIS TIME. COMFORT AND SAFETY MEASURES MAINTAINED. BED IS LOCKED AND IN THE LOWEST POSITION. SIDE RAILS UP X2. CALL LIGHT IS WITHIN REACH. WILL CONTINUE TO MONITOR.
--- NOTE | 2019-03-11 22:23 | NUR ---
SPOKE WITH DR CORNEJO ABOUT VANCO NOT BEING STARTED IN ED DUE TO MISCOMMUNICATION. HE SAID HE WILL PLACE NEW ORDER FOR VANCO.
[2019-03-11 22:30] VITALS: BP 152/92
--- NOTE | 2019-03-12 00:54 | NUR ---
PER PHARMACIST, LUANN, IT'S OKAY TO HANG THE 2000 VANCO AT THIS TIME AND FOR THE NEXT DOSE TO STILL BE AT 0800.
--- NOTE | 2019-03-12 02:20 | NUR ---
PATIENT IS REQUESTING FOOD. NO DIET ORDERS AT THIS TIME. PAGE GATED AND PAGED DR CORNEJO. NO NEW ORDERS AT THIS TIME. NO DISTRESS NOTED. BREATHING EVEN AND UNLABORED ON ROOM AIR. IV INFUSING WELL. PATENT AND INTACT. NO REDNESS OR SWELLING NOTED. SAFETY MEASURES IN PLACE. CALL LIGHT IS WITHIN REACH. WILL CONTINUE TO MONITOR.
[2019-03-12 05:15] VITALS: BP 148/87
--- NOTE | 2019-03-12 05:26 | NUR ---
PATIENT SLEPT IN LONG INTERVALS THROUGHOUT THE NIGHT. NO ACUTE CHANGES NOTED. NO DISTRESS NOTED. NO C/O PAIN. DENIES CHEST PAIN. IV TO THE LAC INFUSING WELL. PATENT AND INTACT. NO REDNESS OR SWELLING NOTED. SAFETY AND COMFORT MEASURES IN PLACE. GAVE PATIENT SANDWHICH AND JUICE PER REQUEST. COVER LOW K 3.3 WITH KLORCON. CALL LIGHT IS WITHIN REACH. WILL CONTINUE TO MONITOR AND ENDORSE CARE TO DAY SHIFT RN.
[2019-03-12 06:31] LABS: CALCIUM 9.6 mg/dL (8.5-10.1); CARBON DIOXIDE 22.9 mmol/L (21-32); CHLORIDE SERUM 105 mmol/L (98-107); CREATININE SERUM 1.2 mg/dL (0.7-1.3); GFR1 > 60 mL/min; GLUCOSE SERUM 150 mg/dL (74-106); MAGNESIUM 2.2 mg/dL (1.8-2.4); PHOSPHOROUS 2.8 mg/dL (2.5-4.9); POTASSIUM SERUM 4.3 mmol/L (3.5-5.1); SODIUM SERUM 141 mmol/L (136-145)
--- NOTE | 2019-03-12 06:32 | NUR ---
PAGE GATED DR CORNEJO ASKING IF HE WANTS A WOUND CARE CONSULT. NO NEW ORDERS AT THIS TIME. WILL ENDORSE CARE TO DAY SHIFT RN.
[2019-03-12 06:34] LABS: BASOPHIL % 0.2 % (0-2); PLATELET COUNT 156 x10^3mcL (130-400); RED CELL DISTRIBUTION WIDTH 12.9 % (11.5-14.5)
--- NOTE | 2019-03-12 07:10 | NUR ---
RECEIVED BEDSIDE REPORT FROM [employer]GEN THERAPY TEACHER NURSE. PATIENT IS SLEEPING COMFORTABLY IN BED. NO APPARENT SIGNS OF PAIN, SOB, OR RESPIRATORY DISTRESS. ON ROOM AIR. RESPIRATIONS EVEN, NOT LABORED. IV TO LEFT AC INFUSING NS AT 100ML/HR. NO EDEMA OR ERYTHEMA NOTED AT SITE. CALL LIGHT AND PHONE WITHIN REACH. BED IN LOW POSITION. SAFETY PRECAUTIONS IN PLACE.
--- NOTE | 2019-03-12 07:47 | NUR ---
MD KENNY AT BEDSIDE. EXAMINING PATIENT, WILL UPDATE ORDERS. WILL PLACE ORDER FOR WOUND CONSULT FOR LLE WOUNDS. PATIENT IS CONFUSED. SPEECH IS SLOW. ABLE TO ANSWER QUESTIONS AND OBEY COMMANDS. ORIENTED TO PERSON, PLACE AND TIME. LETHARGIC. PATIENT ABLE TO MAKE NEEDS KNOWN, DENIES NEEDS AT THIS TIME. QUESTIONS AND CONCERNS ADDRESSED. SAFETY PRECAUTIONS IN PLACE.
--- NOTE | 2019-03-12 08:13 | NUR ---
PATIENT IS STABLE NO APPARENT SIGNS OF PAIN. SOB OR RESPIRATORY DISTESS. PATIENT DENIES NEEDS AT THIS TIME. CALL LIGHT AND PHONE WITHIN REACH. BED IN LOW POSITION. QUESTIONS AND CONCERNS ADDRESSED. SAFETY PRECAUTIONS IN PLACE.
[2019-03-12 08:33] VITALS: BP 148/91
--- NOTE | 2019-03-12 09:00 | NUR ---
ADMINISTERED MEDICATION PER EMAR. PATIENT TOLORATED WELL. EDUCATED ON NEED FOR MEDICATION, WELL ADVERSE EFFECTS TO RESPORT. PATIENT VERBALIZED UNDERSTANDING. DENIES OTHER NEEDS AT THIS TIME. CALL LIGHT AND PHONE WITHIN REACH. BED IN LOW POSITION, BED RIALS UP X2. QUESTIONS AND CONCERNS ADDRESSED. SAFETY PRECAUTIONS IN PLACE.
--- NOTE | 2019-03-12 09:05 | NUR ---
RESPIRATORY AT BEDSIDE FOR TREATMENT.
--- NOTE | 2019-03-12 10:33 | NUR ---
WOUND CARE NURSE OBEY AT BEDSIDE TO EVALUATE LEG WOUNDS.
--- NOTE | 2019-03-12 10:53 | NUR ---
RECEUIVED ORDERS TO TRANSFER TO [facility]. PATIENT DOES NOT HAVE TELE MONITOR ON DOES NOT REMEMBER HAVING TELE MONITOR ON THIS ADMISSION. PER CHARGE NURSE LEESA A MISTAKE MUST HAVE BEEN MADE IN THE ADMIT ORDER. PATIENT ON MESURG STATUS.
--- NOTE | 2019-03-12 11:20 | NUR ---
WOUND CARE EVALUATION NOTE: REASON FOR EVALUATION: LEFT LEG WOUND SKIN ASSESSMENT DONE WITH THIS 53 Y/O MALE PT ADMITTED TO [facility] WITH INITIAL DX SOB. PT. IS AAX4, SKIN ALTERATIONS WITH UNKNOW ETIOLOGY. SKIN IS WARM AND DRY, BLE REDNESS MULTIPLE LESIONS FROM THIGH DOWN, DRY FLAKY SKIN FEW HAIR GROWTH, NO EDEMA. DORSAL PEDAL PULSES PRESENT AND NORMAL, NO PAIN. TREATMENT PLAN AND WOUND CARE INSTRUCTIONS EXPLAINED PLAN OF CARE DISCUSSED WITH PRIMARY RN AND PT. ALL QUESTIONS ANSWERED AND PT VERBALIZING UNDERSTANDING AND AGREEABLE. INTEGUMENTARY: -BLE MULTIPLE LESIONS WITH SCABS WITH LARGEST TO LEFT UPPER THIGH 8X3CM,WOUND BED 100% BLACK SCABS, FREDRICK WOUND SKIN DRY AND INTACT RECOMMENDATIONS: -CLEANSE BLE MULTIPLE LEASIONS/SCABS WITH NS,PAT DRY,APPLY [id number] BETADINE GUAZES,COVER WITH DRY DRESSING QD AND PRN IF SOILING -CONTINUE TO FOLLOW RD RECOMMENDATIONS -PLEASE DISCHARGE WITH TREATMENT SUPPLIES ALL ABOVE RECOMMENDATIONS DISCUSSED WITH PRIMARY RN PLEASE CONTACT WOUND CARE NURSE FOR ANY QUESTION AND CHANGE OF WOUND CONDITION.
--- NOTE | 2019-03-12 13:11 | NUR ---
CARE TRANSFERED TO HENRIETTA FULTON. PATIENT IS STABLE NO APPARENT SIGNS OF PAIN. SOB OR RESPIRATORY DISTESS. PATIENT DENIES NEEDS AT THIS TIME. CALL LIGHT AND PHONE WITHIN REACH. BED IN LOW POSITION. QUESTIONS AND CONCERNS ADDRESSED. SAFETY PRECAUTIONS IN PLACE.
--- NOTE | 2019-03-12 13:19 | NUR ---
RECEIVED REPORT FROM HENRIETTA SOMMERS. PT SITTING UP IN BED. NO ACUTE DISTRESS NOTED. RESP EVEN AND UNLABORED ON RA. IV INTACT AND PATENT. BED IN LOW POSITION. CALL LIGHT WITHIN REACH. WILL CONTINUE TO MONITOR.
--- NOTE | 2019-03-12 15:47 | NUR ---
PT SITTING UP IN BED WATCHIING TV. NO ACUTE DISTRESS NOTED. DENIES SOB. CALL LIGHT WITHIN REACH. WILL CONTINUE TO MONITOR.
[2019-03-12 16:30] VITALS: BP 186/54
--- NOTE | 2019-03-12 17:18 | NUR ---
INFORMED DR KENNY OF HIGH BP 186/54. AWAITING NEW ORDERS.
--- NOTE | 2019-03-12 18:13 | NUR ---
GAVE HYDRALAZINE DUE TO HIGH BP 186/54. WILL CONTINUE TO MONITOR.
--- NOTE | 2019-03-12 18:22 | NUR ---
PT SITTING UP IN BED TALKING WITH GUEST. NO C/O OF DIZZINESS. IV INTACT AND PATENT. LLE WRAPPED. CALL LIGHT WITHIN REACH. WILL BE ENDORSED.
--- NOTE | 2019-03-12 19:30 | NUR ---
RECIEVED PT FROM DAY NURSE. PT RESTING IN BED COMFORTABLY. NO S/S OF PAIN AT THIS TIME. NO COMPLAINTS OF SOB. BREATHING EVEN AND UNLABORED. LUNG SOUNDS CLEAR X 4. TELE 1, SINUS TACH. NO COMPLAINTS OF CHEST PAIN, DIZZINESS, OR PALPATATIONS. BOWEL SOUNDS ACTIVE X 4, LAST BM 03/11. LAC IV INTACT AND INFUSING. BED AT LOWEST POSITION, CALL LIGHT WITHIN REACH. WILL CONTINUE TO MONITOR.
[2019-03-12 21:20] VITALS: BP 154/88
--- NOTE | 2019-03-12 21:43 | NUR ---
PT COMPLAINING OF 7/10 PAIN IN BLE. GAVE NORCO PRN. WILL CONTINUE TO MONITOR.
--- NOTE | 2019-03-13 00:51 | NUR ---
PT RESTING IN BED COMFORTABLY WITH EYES CLOSED. NO S/S OF PAIN AT THIS TIME. BREATHING EVEN AND UNLABORED, NO S/S OF SOB AT THIS TIME. BED AT LOWEST POSITION. CALL LIGHT WITHIN REACH. WILL CONTINUE TO MONITOR.
--- NOTE | 2019-03-13 02:31 | NUR ---
I HAVE REVIEWED THE DATA COLLECTION BY HENRIETTA OCHOA: BRIAN SOSA ENTERED ON 03/12-03/13 I CONCUR WITH THE DATA AND ANY EXCEPTIONS OR COMMENTS ARE LISTED BELOW:
--- NOTE | 2019-03-13 05:48 | NUR ---
PT RESTING IN BED COMFORTABLY WITH EYES CLOSED. NO S/S OF PAIN OR DISCOMFORT AT THIS TIME. BREATHING EVEN AND UNLABORED. NO SIGNIFICANT CHANGES THIS SHIFT. BED AT LOWEST POSITION. CALL LIGHT WITHIN REACH. WILL ENDORE TO DAY NURSE.
[2019-03-13 06:13] LABS: BASOPHIL % 0.2 % (0-2); PLATELET COUNT 149 x10^3mcL (130-400); RED CELL DISTRIBUTION WIDTH 12.9 % (11.5-14.5)
[2019-03-13 06:30] LABS: CALCIUM 9.3 mg/dL (8.5-10.1); CARBON DIOXIDE 23.8 mmol/L (21-32); CHLORIDE SERUM 110 mmol/L (98-107); CREATININE SERUM 0.9 mg/dL (0.7-1.3); GFR1 > 60 mL/min; GLUCOSE SERUM 124 mg/dL (74-106); MAGNESIUM 2.1 mg/dL (1.8-2.4); PHOSPHOROUS 3.5 mg/dL (2.5-4.9); POTASSIUM SERUM 3.9 mmol/L (3.5-5.1); SODIUM SERUM 141 mmol/L (136-145)
--- NOTE | 2019-03-13 06:31 | NUR ---
PT BP 163/100, PT SLEEPING AND DENIED PAIN. AM HYDRALAZINE [address] CRUZ MADE AWARE VIA [place].
[2019-03-13 08:34] VITALS: BP 169/104
--- NOTE | 2019-03-13 11:32 | NUR ---
LLE DRESSINGS DONE. WOUNDS DRY.
--- NOTE | 2019-03-13 11:42 | NUR ---
1. Recommend regular diet w/ Ensure enlive TID.
--- NOTE | 2019-03-13 11:42 | NUR ---
Initial Nutrition Assessment: 240T/B VASHTI DIETRICH IA HR Dx: Asthma exacerbation, lower L extremity cellulitis PMHx: COPD, CHF, HTN, [place] x2, asthma, AIDS PSHx: None Labs: BG 124H, BUN 21H Meds: Colace, D10%, morphine, vancocin, Zestril, zofran Diet: Regular PO Intake: (03/13) breakfast 80%, (03/12) dinner 100%, breakfast 90% Ht: 177.8 cm (70") Wt: 61.6 kg (135#) BMI: 19.5 kg/m2 Bed scale: 57 kg IBW: 166# (75 kg) %IBW: 81 UBW: pt does not remember Age: 53/M Food Allergies: NKFA Skin: LLE wound CARLA wrapped Chong: 16 Edema: none GI: Last BM: 03/11 Per H&P, Pt is a 52 yo male with PMH of COPD, CHF, HTN, [place] x2, and asthma who presented to ED complaining of SOB and left leg pain 3 days ago. RDN Visit (03/13): Patient was alert and oriented but appeared very lethargic. Patient requested Ensure. Patient is going to be discharged today per bed huddles discussion. Patient said that he was able to eat eggs and sausage for breakfast this morning. Paged Dr. Alex to discuss recommendations, waiting for call back. Problem with: N/V/D/C: no Problems with: Chewing/Swallowing: no Current appetite: good Recent wt change: does not remember exact pounds but has lost weight %wt change: N/A Vitamin/Supplement use: none Special diet at home: regular Physical activity: sedentary Nutrition education given: Patient did not have any diet and nutrition related questions at this time. PO intake was encouraged. Patient has been given education with [facility] handouts for his medical conditions during recent hospitalization. Food-drug interactions: Colace- high fiber w/5373-1610 ml fluids Education given: no Estimated Nutritional Needs Based on actual body weight 61.6 kg Energy: 4556-6039 kcal/d (30-35 kcal/kg) - AIDS Protein: 62-92 g/d (1.0-1.5g/kg)- AIDS Fluid: 8918-8088 ml/d (1 ml/kcal) or per doctor Nutrition Diagnosis 1. Increased nutrient needs related to AIDS as evidenced by estimated calorie and protein needs. Intervention 1. Recommend regular diet w/ Ensure enlive TID. Monitor/Evaluate Goal: PO intake at least 75% of estimated needs Monitor: PO intake, Labs, GI function F/U in 2-3 days as high risk 03/15-
--- NOTE | 2019-03-13 12:09 | NUR ---
MD KENNY MADE AWARE OF HIGH BLOOD PRESSURE READINGS FROM THIS MORNING.
[2019-03-13 12:32] VITALS: BP 180/111
--- NOTE | 2019-03-13 15:51 | NUR ---
NOT IN ANY DISTRESS. WATCHING TV AT THIS TIME. CALL LIGHT WITHIN REACH.
--- NOTE | 2019-03-13 16:51 | NUR ---
BP 182/119. MD KENNY MADE AWARE. IVF DISCONTINUED ORDERED. WILL RECHECK BP
[2019-03-13 17:24] VITALS: BP 187/116
--- NOTE | 2019-03-13 19:16 | NUR ---
HANDOFF REPORT GIVEN TO HENRIETTA ROCHA.
--- NOTE | 2019-03-13 19:23 | NUR ---
RECEIVED PT FROM PREVIOUS SHIFT. PT A/OX4. DENIES PAIN. DENIES SOB ON RA. IV PATENT, SALINE LOCKED. CALL LIGHT WITHIN REACH, BED IN LOW POSITION. WILL CONTINUE TO MONITOR.
[2019-03-13 21:26] VITALS: BP 169/106
[2019-03-14 05:55] VITALS: BP 164/106
[2019-03-14 06:36] LABS: BASOPHIL % 0.2 % (0-2); PLATELET COUNT 169 x10^3mcL (130-400); RED CELL DISTRIBUTION WIDTH 12.8 % (11.5-14.5)
[2019-03-14 07:41] LABS: CALCIUM 9.4 mg/dL (8.5-10.1); CARBON DIOXIDE 25.7 mmol/L (21-32); CHLORIDE SERUM 104 mmol/L (98-107); GFR1 > 60 mL/min; GLUCOSE SERUM 105 mg/dL (74-106); PHOSPHOROUS 3.7 mg/dL (2.5-4.9); SODIUM SERUM 142 mmol/L (136-145)
--- NOTE | 2019-03-14 07:50 | NUR ---
AWAKE,ALERT ,DENIES ANY PAIN AT THIS TIME,NO ACUTE RESP. DISTRESS NOTED. ON RA SAT.98%. CONT. RT. PROTOCOL. ORDERED.REQUIRES MOD. ASSIST W/ ADLS. W/C BOUND.LLE OLD SCABS /ABRASIONS W/ DRESS CDI.WILL CONT. PLAN OF CARE,CALL LIGHT W/ IN REACH.
[2019-03-14 08:05] VITALS: BP 160/100
--- NOTE | 2019-03-14 11:29 | NUR ---
LEFT AC IV ACCESS WAS LEAKING RE- INSERTED NEW IV ACCESS # 22 IN RT. FA W/ GOOD BLOOD RETURN.
[2019-03-14 12:16] VITALS: BP 150/92
--- NOTE | 2019-03-14 13:30 | NUR ---
DRESSING CHANGED AND TX DONE TO LLE SCABS/ABRASSION COVERED W/ AC WRAP BANDAGE.DENIES ANY PAIN AT THIS TIME. CALL LIGHT W/ IN REACH.
[2019-03-14 15:58] VITALS: BP 167/104
--- NOTE | 2019-03-14 16:30 | NUR ---
PT. EASILY IRRITABLE AND ANXIOUS ,NOTE B/P ELEVATE 167/104 PT. ASSYMPTOMATIC MD MADE AWARE.
--- NOTE | 2019-03-14 19:21 | NUR ---
RECEIVED PT FROM PREVIOUS SHIFT. AAO. MED/SURG. SITTING AT EDGE OF BED. DENIES CP. REPORTS 7/10 LLE PAIN, LLE WRAPPED IN CARLA BANDAGE AND CDI. DENIES N/V. NO S/S ACUTE DISTRESS. IV TO RFA, NO ERYTHEMA OR EDEMA. CALL LIGHT WITHIN REACH. SAFETY MEASURES IN PLACE. WILL CONTINUE TO MONITOR.
--- NOTE | 2019-03-14 19:32 | NUR ---
PT MEDICATED PER EMAR FOR 7/10 ACHING LLE PAIN.
[2019-03-14 19:43] VITALS: BP 149/98
--- NOTE | 2019-03-14 21:26 | NUR ---
PT CONCERNED HE HAS NOT BEEN TAKING HIS HOME HIV MEDICATIONS, PT WONDERING IF "SHOULD I JUST TAKE THEM SO I DON'T MISS A DOSE?". ENCOURAGED PT NOT TO TAKE ANY HOME MEDICATIONS NOT VERIFIED BY PHARMACY AND RISKS THAT MAY COME WITH IT, PT VERBALIZED UNDERSTANDING. WILL FOLLOW UP WITH DR. GREGG.
--- NOTE | 2019-03-14 22:02 | NUR ---
SPOKE TO DR. GREGG ON PHONE REGARDING PT HIV MEDS. PER DR. GREGG, HE WILL BE IN TO SEE PT.
--- NOTE | 2019-03-14 23:53 | NUR ---
PT MEDICATED PER EMAR FOR 9/10 ACHING BLE PAIN.
--- NOTE | 2019-03-15 01:47 | NUR ---
PT RESTING IN BED. NO S/S ACUTE DISTRESS. BREATHING E/U. NO SIGNS OF PAIN NOTED. SAFETY MEASURES IN PLACE. CALL LIGHT WITHIN REACH. WILL CONTINUE TO MONITOR.
[2019-03-15 05:37] VITALS: BP 151/90
--- NOTE | 2019-03-15 06:39 | NUR ---
PT SLEPT THROUGHOUT NIGHT. DENIES PAIN. NO S/S ACUTE DISTRESS. NO CHANGES OVERNIGHT. ALL NEEDS MET AND ATTENDED TO. IV SITE REMAINS CDI, NO ERYTHEMA OR EDEMA. CALL LIGHT WITHIN REACH. SAFETY MEASURES IN PLACE. WILL ENDORSE CARE TO ONCOMING SHIFT.
[2019-03-15 06:48] LABS: CALCIUM 9.4 mg/dL (8.5-10.1); CARBON DIOXIDE 29.1 mmol/L (21-32); CHLORIDE SERUM 103 mmol/L (98-107); CREATININE SERUM 1.2 mg/dL (0.7-1.3); GFR1 > 60 mL/min; GLUCOSE SERUM 132 mg/dL (74-106); POTASSIUM SERUM 4.6 mmol/L (3.5-5.1); SODIUM SERUM 141 mmol/L (136-145)
[2019-03-15 06:51] LABS: BASOPHIL % 0.1 % (0-2); PLATELET COUNT 179 x10^3mcL (130-400)
[2019-03-15 07:42] VITALS: BP 151/92
--- NOTE | 2019-03-15 07:50 | NUR ---
[facility] FROM [facility], PT IS A/A/OX4 DENIES GRAVES. RESP EVEN AND UNLABORED WITH CLEAR BS BILAT. ABD SOFT, NONTENDER WITH ACTIVE BS X4. VOIDING FREELY. PT WITH DRY WOUNDS TO LLE AND DRY SCABS TO BLE. WC BOUND ABLE TO REPOSITION SELF IN BED. CALL LIGHT IN REACH NEEDS ATTENDED TO.
--- NOTE | 2019-03-15 08:52 | NUR ---
PT C/O LEG PAIN 03/11, MEDICATED WITH MORPHINE PER EMAR.
[2019-03-15 11:46] VITALS: BP 149/89
--- NOTE | 2019-03-15 12:30 | NUR ---
PT RESTING AT THIS TIME. DENIES ANY DISCOMFORT AT THIS TIME. CALL LIGHT IN REACH NEEDS ATTENDED TO.
[2019-03-15 15:52] VITALS: BP 146/90
--- NOTE | 2019-03-15 16:29 | NUR ---
RECEIVED PT FROM HENRIETTA ARDON. PT LAYING IN BED WITH HOB ELEVATED. NO COMPLAINT OF PAIN. NO SOB ON ROOM AIR. CALM/COOPERATIVE AT THIS TIME. NO CHEST PAIN. IV WNL TO RFA, NO REDNESS, NO SWELLING, NO INFILTRATION. SALINE LOCKED. BED IN LOW POSITION. CALL LIGHT WITHIN REACH. WILL CONTINUE TO MONITOR.
--- NOTE | 2019-03-15 16:37 | NUR ---
WOUND CARE COMPLETED TO LLE PER DR ORDER. SCATTERED DRY ABRASIONS NOTED TO LLE. ABRASIONS CLEANSED WITH NS AND PATTED DRY, WOUND CX OBTAINED. APPLIED BETADINE TO ABRASION AND COVERED WITH GAUZE AND KERLIX. NO DISTRESS REPORTED BY THE PATIENT.
[2019-03-15 19:42] VITALS: BP 142/89
--- NOTE | 2019-03-15 19:44 | NUR ---
RECEIVED BEDSIDE REPORT FROM PREVIOUS SHIFT. PT IS AAO. MED/SURG. SITTING UP IN BED WATCHING VIDEOS ON PHONE. DENIES CP. REPORTS 04/11 LLE PAIN, DRESSING JUST CHANGED DURING LAST SHIFT, CDI. DENIES N/V. NO S/S ACUTE DISTRESS. IV TO RFA, NO ERYTHEMA OR EDEMA, SALINE-LOCKED. CALL LIGHT WITHIN REACH. SAFETY MEASURES IN PLACE. WILL CONTINUE TO MONITOR.
--- NOTE | 2019-03-15 20:42 | NUR ---
PT MEDICATED PER EMAR FOR BLE "SHOOTING" PAIN.
--- NOTE | 2019-03-16 00:20 | NUR ---
PT AWAKE AND WATCHING VIDEOS ON PHONE. NO S/S ACUTE DISTRESS. BREATHING E/U. NO C/O PAIN. SNACKS PROVIDED. CALL LIGHT WITHIN REACH. SAFETY MEASURES IN PLACE. WILL CONTINUE TO MONITOR.
[2019-03-16 05:23] VITALS: BP 146/99
--- NOTE | 2019-03-16 05:46 | NUR ---
PT SLEPT THROUGHOUT NIGHT. DROWSY BUT EASILY AROUSABLE. DENIES PAIN. NO S/S ACUTE DISTRESS. NO CHANGES OVERNIGHT. ALL NEEDS MET AND ATTENDED TO. IV SITE REMAINS CDI, NO ERYTHEMA OR EDEMA. CALL LIGHT WITHIN REACH. LLE DRESSING CDI REMAINS ELEVATED ON PILLOW. SAFETY MEASURES IN PLACE. WILL ENDORSE CARE TO ONCOMING SHIFT.
--- NOTE | 2019-03-16 07:18 | NUR ---
BEDSIDE REPORT GIVEN TO HENRIETTA STYLES. ALL QUESTIONS AND CONCERNS ADDRESSED.
--- NOTE | 2019-03-16 07:40 | NUR ---
PATIENT A/OX4, SLOW TO RESPOND AT TIMES, ABLE TO MAKE NEEDS KNOWN AND FOLLOW COMMANDS. LUNGS CTA. IV SITE WNL, PATENT. NO ACUTE DISTRESS ON RA AT THIS TIME. DENIES FEELING SOB. LLE WITH KERLIX DRESSING CDI. SMALL MULTIPLE DRY SCABS NOTED TO RLE. DENIES ANY DISCOMFORT AT THIS TIME. WILL CONT TO ASSESS AND MONITOR.
[2019-03-16 07:43] LABS: BASOPHIL % 0.1 % (0-2); PLATELET COUNT 198 x10^3mcL (130-400); RED CELL DISTRIBUTION WIDTH 12.7 % (11.5-14.5)
[2019-03-16 08:32] LABS: CALCIUM 9.6 mg/dL (8.5-10.1); CARBON DIOXIDE 27.1 mmol/L (21-32); CHLORIDE SERUM 102 mmol/L (98-107); CREATININE SERUM 1.2 mg/dL (0.7-1.3); GFR1 > 60 mL/min; GLUCOSE SERUM 97 mg/dL (74-106); POTASSIUM SERUM 4.6 mmol/L (3.5-5.1); SODIUM SERUM 142 mmol/L (136-145)
[2019-03-16 11:52] VITALS: BP 138/90
--- NOTE | 2019-03-16 12:10 | NUR ---
Follow-up Nutrition Assessment: 240/B VASHTI DIETRICH FU HR Dx: Asthma exacerbation, lower L extremity cellulitis PMHx: COPD, CHF, HTN, [place] x2, asthma, AIDS Labs: (03/16) BUN 35H, urine protein 2+ Meds: Ativan, Colace, D10%, morphine, vancocin, Zestril, zofran Diet: Regular PO Intake: (03/16) breakfast 100%, (03/15) breakfast 80%, Lunch 60%, dinner 70%, (03/14) 100% all meals Weights: (03/11) 61.6 kg (03/16) 59 kg Skin: multiple dry scabs BLE, LLE wrapped in guaze Chong: 16 I/Os: (03/16) 2270/3075 (-805) Edema: none GI: Last BM: 03/11 RDN Visit (03/16): Patient was alert and oriented and said that he ate all of his breakfast this morning and also consumes Ensure ONS. Per progress note (03/16), patient is awaiting wound culture. Per public information specialist note (03/12), pt has multiple lesions BLE w/ 100% black scabs, eden wound. Discussed recommendation of adding Wilfred BID w/ COSMETOLOGY TEACHER Catina. Estimated Nutritional Needs Based on actual body weight 61.6 kg Energy: 8799-8383 kcal/d (30-35 kcal/kg) - AIDS Protein: 62-92 g/d (1.0-1.5g/kg)- AIDS Fluid: 3147-6461 ml/d (1 ml/kcal) or per doctor Nutrition Diagnosis 1. Increased nutrient needs related to AIDS as evidenced by estimated calorie and protein needs. (ongoing) Intervention 1. Recommend continuing regular diet w/ Ensure enlive TID. 2. Recommend Wilfred BID for wounds. Monitor/Evaluate Goal: Have pt meet at least 75% of estimated needs Monitor: PO intake, Labs, GI function F/U in 2-3 days as high risk 03/18-
--- NOTE | 2019-03-16 12:11 | NUR ---
1. Recommend continuing regular diet w/ Ensure enlive TID. 2. Recommend Wilfred BID for wounds.
[2019-03-16 18:11] VITALS: BP 148/90
--- NOTE | 2019-03-16 19:00 | NUR ---
DRESSING CHANGE DONE TO LLE PER WOUND CARE ORDERS. WOUND BED BLACK WITH PINK SURROUNDING TISSUE. NO DRAINAGE OR ODOR. PATIENT C/O BLE PAIN 05/12, MORPHINE GIVEN.
--- NOTE | 2019-03-16 19:30 | NUR ---
RECIEVED PATIENT AT START OF SHIFT A/O X4, MED-SURG. DENIES PAIN. NO SOB ON RA. NO EDEMA NOTED. PULSES MODERATE. LLE WRAPPED WITH KERLEX, CDI. IV TO RFA IS SALINE LOCKED AND PATENT. PATIENT IS CALM AND COOPERATIVE AT THIS TIME. USE OF CALL LIGTH REINFFORCED AND LEFT WITHIN REACH WITH BEDSIDE TABLE. EDUCATED NOT TO GET UP OUT OF BED WITHOUT ASSISTANCE.
[2019-03-16 21:14] VITALS: BP 133/73
--- NOTE | 2019-03-16 22:30 | NUR ---
PATIENT GIVEN NORCO FOR MODERATE PAIN TO RLE. KPAD ALSO APPLIED, MD ORDER OBTAINED.
--- NOTE | 2019-03-17 02:00 | NUR ---
PATIENT'S EYES ARE CLOSED. BREATHS EVEN. CALL LIGHT WITHIN REACH.
[2019-03-17 05:24] VITALS: BP 136/99
--- NOTE | 2019-03-17 06:33 | NUR ---
PATIENT IS AWAKE BUT VERY GROGGY. NO COMPLAINT OF PAIN. BREATHS EVEN AND REGULAR. NO FURTHER SIGNIFICANT EVENTS THIS SHIFT. CALL LIGHT WITHIN REACH. WILL ENDORSE CRAE TO DAYSHIFT NURSE.
[2019-03-17 06:38] LABS: PLATELET COUNT 174 x10^3mcL (130-400); RED CELL DISTRIBUTION WIDTH 12.6 % (11.5-14.5)
[2019-03-17 06:45] LABS: CALCIUM 8.7 mg/dL (8.5-10.1); CARBON DIOXIDE 27.2 mmol/L (21-32); CHLORIDE SERUM 102 mmol/L (98-107); CREATININE SERUM 1.1 mg/dL (0.7-1.3); GFR1 > 60 mL/min; GLUCOSE SERUM 125 mg/dL (74-106); POTASSIUM SERUM 4.6 mmol/L (3.5-5.1); SODIUM SERUM 138 mmol/L (136-145)
[2019-03-17 06:49] LABS: BASOPHIL % 0 % (0-2)
--- NOTE | 2019-03-17 08:45 | NUR ---
RECEIVED PATIENT FROM [facility]. PATIENT A/A/OX4; SPEECH CLEAR. NO SOB; LUNG SOUND CLEAR. O2 SAT 98% ON RA. DENIED CHEST PAIN. DRSG TO LLE DRY/CLEAN/INTACT. TRACE EDEMA TO L FOOT. PULSES PALPABLE. IVHL TO RFA HAS RESISTACE ON SALINE FLUSH. PATIENT REFUSED NEW IV INSERTION. PATIENT REFUSED TO REMOVE LEAKING IV ON RFA. VOID FREELY VIA URINAL. WHEELCHAIR BOUND. C/O LLE PAIN ON 03/11; K-PAD IN PLACE. CALL LIGHT IN REACH.
[2019-03-17 09:43] VITALS: BP 156/101
--- NOTE | 2019-03-17 11:00 | NUR ---
PATIENT REFUSED NEW IV INSERTION. COURSE CAREGIVERS WITH INPROPER WORDS.
--- NOTE | 2019-03-17 15:00 | NUR ---
NEW IV INSERTED W/ 24G NEEDLE TO LFA. C/O LEG PAIN ON 03/11. MORPHINE 2MG IVP GIVEN.
[2019-03-17 17:33] VITALS: BP 145/90
--- NOTE | 2019-03-17 18:50 | NUR ---
CONDITION STABLE. NO C/O PAIN NOW. DRSG TO LLE INTACT. IV TKO TO LFA. ENDORSED CARE TO NOC NURSE.
--- NOTE | 2019-03-17 20:07 | NUR ---
PATIENT RECEIVED AWAKE, ALERT, ORIENTED X4 IN BED. RESPIRATION EVEN AND UNLABORED, ON ROOM AIR. IV SITE TO LEFT FOREARM PATENT AND INTACT. TRACE EDEMA TO LEFT FOOT. LBM 03/15/19. VOIDING FREELY WITHOUT DIFFICULTY, USES URINAL. GENERALIZED WEAKNESS, WHEELCHAIRBOUND. BLE MULTIPLE SCABS, LLE LESIONS COVERED WITH DRESSING. DENIES PAIN AT THIS TIME. WILL CONTINUE TO MONITOR.
[2019-03-17 21:40] VITALS: BP 135/91
--- NOTE | 2019-03-17 23:41 | NUR ---
PATIENT COMPLAINED OF BLE PAIN, 04/11. MEDICATED WITH NORCO 7.5/325 MG PO ORDERED. WILL CONTINUE TO MONITOR.
--- NOTE | 2019-03-18 05:59 | NUR ---
PATIENT RESTING IN BED. RESPIRATION EVEN AND UNLABORED, ON ROOM. IV SITE NO SIGN OF INFILTRATION. DENIES PAIN AT THIS TIME. DRESSING TO LLE DRY AND INTACT. REFUSED TO USE K PAD AT THIS TIME. ASSISTED WITH NEEDS. SAFETY OBSERVED. PLACED BED IN THE LOWEST POSITION. PLACED CALL LIGHT WITHIN REACH AT ALL TIMES.
[2019-03-18 06:38] VITALS: BP 149/96
--- NOTE | 2019-03-18 07:03 | NUR ---
RECEIVED PT FROM TRUST MANAGER ASSISTANT NURSE. PT IN BED SLEEPING, AROUSABLE, RESP E/U ON RA. NO ACUTE DISTRESS NOTED. SALINE LOCK TO LFA W/ NO ERYTHEMA OR EDEMA. BED IN LOWEST POSITION AND CALL LIGHT WITHIN REACH. WILL CONTINUE TO MONITOR.
[2019-03-18 08:29] VITALS: BP 153/100
[2019-03-18 11:37] VITALS: BP 132/83
--- NOTE | 2019-03-18 11:44 | NUR ---
PT RESTING IN BED, AOX4, RESP E/U ON RA. C/O MILD PAIN TO L LEG/FOOT BUT TOLERABLE. NO REQUEST FOR PAIN MEDS AT THIS TIME. COMFORT MEASURES IMPLEMENTED. DRESSING TO L LG CDI. BED IN LOWEST POSITION AND CALL LIGHT WITHIN REACH. WILL CONTINUE TO MONITOR.
--- NOTE | 2019-03-18 16:05 | NUR ---
WOUND CARE DONE. SCAB-LIKE LESIONS OBSERVED TO L LEG, NO BLEEDING OR DISCHARGE NOTED. BETADINE GAUZE IN PLACE TO L LEG LESIONS, SECURED BY KERLIX CDI. PT DENIES PAIN TO WOUND SITE. K-PAD IN PLACE. WILL CONTINUE TO MONITOR.
[2019-03-18 16:14] VITALS: BP 135/80
--- NOTE | 2019-03-18 18:02 | NUR ---
PT RESTING IN BED, AOX4. RESP E/U ON RA. NO ACUTE DISTRESS NOTED. DENIES TO BLE AT THIS TIME. DRESSING TO L LEG CDI, K-PAD IN PLACE TO R FOOT. SALINE LOCK TO LFA W/ NO ERYTHEMA OR EDEMA. BED IN LOWEST POSITION AND CALL LIGHT WITHIN REACH. WILL ENDORSE TO ONCOMING NURSE.
[2019-03-18 20:00] VITALS: BP 138/71
--- NOTE | 2019-03-18 20:33 | NUR ---
PT C/O RIGHT LEG PAIN 02/09 MEDICATED PT WITH NORCO PO .
[2019-03-18 21:10] VITALS: BP 152/85
--- NOTE | 2019-03-18 22:14 | NUR ---
POST PRIM PT DENY PAIN .
--- NOTE | 2019-03-18 23:25 | NUR ---
PT'S AAOX4 , LUNG SOUNDS DIMINISHED , NO RESP DISTRESS NOTED , PT DENY SOB AT THE MOMENT , ABD SOFT BS ACTIVE X4, HL PATENT FLUSHING WELL , LEFT LEG CELLULITIS WITH DRESSING C/D/I . CALL LIGHT WITHIN PT'S REACH. K-PAD TO RIGHT LEG ORDERED .
[2019-03-19] VITALS (7 sets, daily range): BP systolic 131–170; BP diastolic 74–101
--- NOTE | 2019-03-19 01:02 | NUR ---
PT'S IN BED AWAKE EATING PUDDING . PT DENY PAIN AT THE MOMENT , K-PAD INPLACE HL PATENT.
--- NOTE | 2019-03-19 05:46 | NUR ---
BP 165/91 HR 92 SCHEDULE HYDRALAZINE GIVEN.
--- NOTE | 2019-03-19 06:00 | NUR ---
PT C/O RIGHT LEG PAIN 03/11. MEDICATED WITH NORCO ORDERED PRN.
--- NOTE | 2019-03-19 06:05 | NUR ---
I HAVE REVIEWED THE DATA COLLECTION BY KHARI (NAME):STEVE BRIZUELA ENTERED ON (DATE/TIME):03/18/19 @204 I CONCUR WITH THE DATA AND ANY EXCEPTIONS OR COMMENTS ARE LISTED BELOW:
--- NOTE | 2019-03-19 06:06 | NUR ---
PATIENT'S PLAN OF CARE WAS DISCUSSED AND REVIEWED WITH WINDOW CLEANER:GELACIO WILSON
--- NOTE | 2019-03-19 06:44 | NUR ---
POST MEDS BP 131/74 89. PT DENY PAIN AT THE MOMENT , CALL LIGHT WITHIN PT'S REACH , ALL DUE MEDS GIVEN NO REACTION NOTED.HL PATENT.
[2019-03-19 06:54] LABS: BASOPHIL % 0.2 % (0-2); PLATELET COUNT 173 x10^3mcL (130-400); RED CELL DISTRIBUTION WIDTH 12.8 % (11.5-14.5)
[2019-03-19 07:05] LABS: CALCIUM 9.5 mg/dL (8.5-10.1); CARBON DIOXIDE 26.1 mmol/L (21-32); CHLORIDE SERUM 103 mmol/L (98-107); CREATININE SERUM 1.1 mg/dL (0.7-1.3); GFR1 > 60 mL/min; GLUCOSE SERUM 103 mg/dL (74-106); POTASSIUM SERUM 4.7 mmol/L (3.5-5.1); SODIUM SERUM 137 mmol/L (136-145)
--- NOTE | 2019-03-19 07:10 | NUR ---
RECEIVED PT FROM SIDEWALK INSPECTOR NURSE. PT IN BED SLEEPING, AOX4, RESP E/U ON RA. NO ACUTE DISTRESS NOTED. SALINE LOCK TO LFA W/ NO ERTYTHEMA OR EDEMA. DRESSING TO L LEG CDI. K-PAD IN PLACE TO R FOOT. BED IN LOWEST POSITION AND CALL LIGHT WITHIN REACH. WILL CONTINUE TO MONITOR.
--- NOTE | 2019-03-19 08:54 | NUR ---
Follow-up Nutrition Assessment: 240/B VASHTI DIETRICH FU HR Dx: Asthma exacerbation, lower L extremity cellulitis PMHx: COPD, CHF, HTN, [place] x2, asthma, AIDS Labs: (03/19) BUN 44H Meds: Colace, D10%, morphine, Zestril, zofran Diet: Regular PO Intake: (03/18) breakfast, lunch-100%, (03/16) breakfast 100%, (03/15) breakfast 80%, Lunch 60%, dinner 70%, Weights: (03/11) 61.6 kg (03/16) 59 kg, (03/19) 65 kg Skin: cellulitis to LLE covered w/ kerlix Chong: 15 I/Os: (03/19) 3030/4975 (-1945) Edema: none GI: Last BM: 03/15 RDN Visit (03/19): Patient was receiving his medications and was busy with other heatare professionals. Per RN eSrgio, patient ate all of his breakfast this morning and does not have any N/V/D/C at this time. Per progress note (03/18), Patient cutlure shows no growth to leg. Spoke with regarding possible discharge and is in agreement for discharge. Vanco to be discontinued per Estimated Nutritional Needs Based on actual body weight 61.6 kg Energy: 3495-6972 kcal/d (30-35 kcal/kg) - AIDS Protein: 62-92 g/d (1.0-1.5g/kg)- AIDS Fluid: 3067-9303 ml/d (1 ml/kcal) or per doctor Nutrition Diagnosis 1. Increased nutrient needs related to AIDS as evidenced by estimated calorie and protein needs. (ongoing) Intervention 1. Recommend continuing regular diet w/ Ensure enlive TID. Monitor/Evaluate Goal: Have pt meet at least 75% of estimated needs Monitor: PO intake, Labs, GI function F/U in 3-5 days as moderate risk 03/22-
--- NOTE | 2019-03-19 08:54 | NUR ---
1. Recommend continuing regular diet w/ Ensure enlive TID.
--- NOTE | 2019-03-19 11:36 | NUR ---
PT RESTING IN BED, AOX4, RESP E/U ON RA. C/O MODERATE PAIN TO R FOOT RATED 7/10. MEDICATED ORDERED PER EMAR. COMFORT MEASURES IMPLMENTED, K-PAD IN PLACE. BED IN LOWEST POSITION AND CALL LIGHT WITHIN REACH. WILL CONTINUE TO MONITOR.
--- NOTE | 2019-03-19 14:23 | NUR ---
WOUND CARE DONE. BLACK, SCAB-LIKE LESIONS TO LLE NOTED, NO BLEEDING OR DISCHARGE NOTED. PT DENIES PAIN TO WOUND SITE. BETADINE GUAZE IN PLACE SECURED BY KERLIX. WILL CONTINUE TO MONITOR.
--- NOTE | 2019-03-19 15:53 | NUR ---
PHYSICAL THERAPY DAILY NOTES CO-SIGN All documentation done by the [employer] Weigher for 03/19/19 has been reviewed. I agree with the documentation. Reviewed/Co-Signed by: Mary Barba PT Documentation Done by:NELSON JIMENEZ PTA
--- NOTE | 2019-03-19 18:33 | NUR ---
PT RESTING IN BED, AOX4, RESP E/U ON RA. C/O PAIN TO R FOOT RATED 7/10. MEDICATED ORDERED PER EMAR. K-PAD IN PLACE. COMFORT MEASURES IMPLMENTED. IV TO LAC W/ NO ERYTHEMA OR EDEMA. BED IN LOWEST POSITION AND CALL LIGHT WITHIN REACH. WILL ENDORSE TO ONCOMING NURSE.
--- NOTE | 2019-03-19 20:29 | NUR ---
RECEIVED PT IN BED AAOX4 NO ACUTE DISTRESS NOTED, LUNG SOUNDS CTA , ABD SOFT BS ACTIVE X4, HL INTACT FLUSHING WELL, , DRESSING TO LEFT LEG C/D/I , PT DENY PAIN AT THE MOMENT , WILL CON'T TO MONITOR PT CLOSELY.
--- NOTE | 2019-03-20 00:18 | NUR ---
NORCO 1TAB GIVEN PO FOR RIGHT LEG PAIN 02/09.
[2019-03-20 05:59] VITALS: BP 170/101
--- NOTE | 2019-03-20 06:02 | NUR ---
BP 170/101 APRESPLINE GIVEN , WILL RECHECK BP IN 1HR.
--- NOTE | 2019-03-20 06:38 | NUR ---
NO CHANGES OF CONDITION NOTED, ALL DUE MEDS GIVEN NO REACTION NOTED, HL INTACT .
--- NOTE | 2019-03-20 07:35 | NUR ---
PATIENT SITTING AT EDGE OF BED EATING BREAKFAST MEAL, A/OX4 ABLE TO MAKE NEEDS KNOWN AND FOLLOW COMMANDS. DENIES HEADACHE OR CHEST PAIN. LUNGS CTA, NO RESP DISTRESS NOTED ON RA. BREATHING E/U. PERIPHERAL PULSES PLAPBLE, NO EDEMA. LAST BM STATED YESTERDAY NORMAL. DENIES N/V, TOLERING DIET WELL. MULTIPLE DRY SCABS TO RLE STORAGE BATTERY CHARGER. DRESSING TO LLE CDI, INFORMED PATIENT WILL CHANGE DRESSING AFTER BREAKFAST MEAL AND COMPLIANT. IV SITE WNL, NO REDNESS/SWELLING. CALL LIGHT WITHIN REACH.
[2019-03-20] MEDS ORDERED: LEXAPRO10 MG PO (07:53)
[2019-03-20] MEDS ORDERED: NEU100 PO (07:54)
[2019-03-20] MEDS ORDERED: BACTRIM DS1 TAB PO (08:10)
[2019-03-20] MEDS ORDERED: ZITHROMAX TRI-500 MG PO (08:11)
[2019-03-20 09:01] VITALS: BP 173/97
--- NOTE | 2019-03-20 09:20 | NUR ---
WOUND CARE DRESSING CHANGE TO LLE DONE. PHOTOS TAKEN AND CHARTED. PATIENT TOLERATED WELL.
[2019-03-20 09:56] VITALS: BP 152/92
--- NOTE | 2019-03-20 10:40 | NUR ---
PATIENT DISCHARGE INSTRUCTIONS GIVEN, INFORMED HIM SW TO MAKE ARRANGMENTS FOR HIM TO TAKE A CAB TO FOLLOW UP APPT AT 11AM AFTER DISCHARGE, PATIENT REFUSING TO GO TO APPOINTMENT "WHY DO I HAVE TO GO?..OTHER TIMES I NEVER NEEDED TO GO. WELL I'M NOT GOING..JUST HAVE THE CAB DROP ME OFF WERE I CAME FROM, [place] [place]". CHARGE NURSE AND DARWIN LANCE MADE AWARE. IV DC'D, SITE WNL NO REDNESS/SWELLING. PERSONAL BELONGINGS ACCOUNTED FOR. DARIWN TO FOLLOW UP ON CAB ARRANGEMENTS AND WILL LET ME KNOW.
--- NOTE | 2019-03-20 15:23 | NUR ---
PHYSICAL THERAPY DAILY NOTES CO-SIGN All documentation done by the Hogshead Filler for 03/20/19 has been reviewed. I agree with the documentation. Reviewed/Co-Signed by: Mary Barba PT Documentation Done by:NELSON JIMENEZ PTA
--- NOTE | 2019-03-20 16:10 | NUR ---
PATIENT OFF UNIT VIA WHEELCHAIR, ACCOMPANIED BY AQUACULTURE AND FISHERIES PROFESSOR AND RN. TO BE PICKED UP BY CAB. NO ACUTE DISTRESS AT TIME OF DISCHARGE. ALL QUESTIONS/CONCERNS ADDRESSED.
== END 2019-03-20 16:10 | disposition home or self-care (01) | DRG 892 ==
LOC: ED 14:17 → MU 21:08 → DU 21:38 → MU 21:38 → DU 03-12 20:17 → MU 03-13 11:14
PROVIDERS: Internal Medicine; Specialist; ADMIT Internal Medicine
DX: L03.116 Cellulitis of left lower limb (principal); B20 Human immunodeficiency virus [HIV] disease; J96.01 Acute respiratory failure with hypoxia; N17.0 Acute kidney failure with tubular necrosis; J45.901 Unspecified asthma with (acute) exacerbation; R64 Cachexia; E87.6 Hypokalemia; F15.129 Other stimulant abuse with intoxication, unspecified; E16.2 Hypoglycemia, unspecified; I10 Essential (primary) hypertension; R74.0 Nonspecific elevation of levels of transaminase and lactic acid dehydrogenase [LDH]; I25.2 Old myocardial infarction; Z59.0 Homelessness; Z68.1 Body mass index [BMI] 19.9 or less, adult; Z86.73 Personal history of transient ischemic attack (TIA), and cerebral infarction without residual deficits; Z86.711 Personal history of pulmonary embolism; Z87.891 Personal history of nicotine dependence; Z79.52 Long term (current) use of systemic steroids; Z91.14 Patient's other noncompliance with medication regimen
CPT/HCPCS: 36600; 82962; 83880; 84439; 97110-GP; 97116-GP; 97530-GP; G0378; J0360; J0696; J2270; J2920; J2930; J3370; J7030; J7613; J7620; J7644

== ENCOUNTER 2019-03-23 14:08 | Inpatient (IN) | payer OTHER ==
[~2019-03-23] VITALS: Ht 177.8 cm; Wt 55.4 kg
[~2019-03-23 14:08] MED LIST changes: +BACTRIM DS1 TAB PO; +BACTRIM1 TAB; +LEXAPRO10 MG PO; +NEU100 PO; +ZITHROMAX TRI-500 MG PO
--- NOTE | 2019-03-23 14:30 | NUR ---
PT BROUGHT IN BY [employer] WHO WORKS W/ THE HOMELESS. HE STATES PT WAS DC'ED FROM HERE ON SATURDAY TO A [facility]RE[facility] & IS UNABLE TO CARE FOR SELF. HE STATES HE JUST TALKED TO ZAIDA IN CASE MANAGEMENT WHO TOLD HIM TO BRING PT BACK FOR POSSIBLE SNF PLACEMENT. I CALLED ZAIDA, SHE STATES PT WAS DC'ED TO A MOTEL, & SHE HAS CALLED INSURANCE ALREADY TO TRY TO GET PT PLACED IN A SNF. SHE STATES TO CHECK PT IN TO ER FOR FURTHER PLACEMENT ATTEMPTS. PT'S NAME IS SPELLED WRONG & NEW MEDICAL RECORD # WAS CREATED. CALLED ADMITTING, SPOKE W/ PAULINO, & LET HER KNOW THAT PT WAS JUST HERE & ALREADY HAS A MEDICAL RECORD. SHE STATES SHE WILL CALL MEDICAL RECORDS TO MERGE.
--- NOTE | 2019-03-23 14:47 | NUR ---
Received a call from Addison with code enforcement and homeless outreach who stated was with the pt trying to provide assistance with housing however the pt was very weak and unable to transfer independently and/or walk. Addison requesting assistance to refer the patient to the [facility] Rec[facility] care for PT services. Rylan spoke with [employer] d/c shutdown planner Hernan ext [phone] who stated he can't refer the pt to recuperative care unless pt is independent with transfers and ADLs. Rylan requested assistance with SNF placement with a post SNF plan to Recuperative care. Rylan faxed a packet with last admissions notes to . Hernan was made aware Addison with code enforcement was going to bring pt to ED. Concepción Hernandez, Luncheonette Manager, ext [phone]
--- NOTE | 2019-03-23 15:00 | NUR ---
PT PLACED IN H6 FOR EVAL.
--- NOTE | 2019-03-23 15:26 | NUR ---
PT ALERT TO NAME, PLACE, SITUATION, DISORIENTED TO YEAR. DENIES ANY PAIN AT THIS TIME.
--- NOTE | 2019-03-23 15:52 | NUR ---
MOVED FROM HALLWAY 6 TO BED ORTHO.
[2019-03-23 16:23] LABS: BASOPHIL % 0.5 % (0-2); PLATELET COUNT 178 x10^3mcL (130-400); RED CELL DISTRIBUTION WIDTH 12.6 % (11.5-14.5)
[2019-03-23 16:29] LABS: microscopic required? YES; urine erythrocyte NEGATIVE (NEGATIVE)
[2019-03-23 16:43] LABS: CALCIUM 8.4 mg/dL (8.5-10.1); CARBON DIOXIDE 23.1 mmol/L (21-32); CHLORIDE SERUM 100 mmol/L (98-107); GFR1 > 60 mL/min; GLUCOSE SERUM 129 mg/dL (74-106); POTASSIUM SERUM 3.5 mmol/L (3.5-5.1); SODIUM SERUM 133 mmol/L (136-145)
[2019-03-23 16:47] LABS: ALKALINE PHOSPHATASE 65 U/L (46-116); ALT/SGPT 386 U/L (16-63); AST/SGOT 88 U/L (15-37); BILIRUBIN TOTAL 0.3 mg/dL (0.20-1.00); MAGNESIUM 2.1 mg/dL (1.8-2.4); TOTAL PROTEIN, SERUM 6.3 g/dL (6.4-8.2)
[2019-03-23 16:48] LABS: ALBUMIN 2.6 g/dL (3.4-5.0)
--- NOTE | 2019-03-23 19:19 | NUR ---
PT LAYING ON GURNEY IN POSITION OF COMFORT. PT STS HE IS COLD, PROVIDED A BLANKET. NO S/S OF DISTRESS. RESP E/U. CALL LIGHT W/IN REACHING. WILL CONTINUE TO MONITOR.
--- NOTE | 2019-03-23 19:26 | NUR ---
SPOKE WITH KELLY PADILLA THAT PT SHOULD BE ADMITTED FOR OBSERVATION TONIGHT, WHEN CASE MANAGEMENT IS AVAILABLE IN THE MORNING PT SHOULD GO TO ASSISTED NURSING FACILITY TOMORROW.
[2019-03-23 20:00] LABS: AMPHETAMINE QUAL UR NONE DETECTED (See below)
--- NOTE | 2019-03-23 20:24 | NUR ---
REPORT CALLED TO HENRIETTA POTTER TO ASSUME CARE OF PT
--- NOTE | 2019-03-23 20:29 | NUR ---
PT MEDICATED PER ORDER. PT VERBALIZED UNDERSTANDING OF MEDICATION TEACHING. SEE EMAR FOR DETAILS.
--- NOTE | 2019-03-23 20:45 | NUR ---
PT TAKEN TO MED SURG FLOOR ACCOMPANIED BY EMT. NO S/S OF DISTRESS. RESP E/U. IV SITE PATENT, PT DENIES PAIN OR DISCOMFORT TO SITE.
[2019-03-23 21:09] VITALS: BP 181/118
--- NOTE | 2019-03-23 21:13 | NUR ---
RECEIVED PT FROM ED VIA KARLA. ORIENTED PT TO ROOM AND SURROUNDIGS. IV NOTED TO RH PATENT AND INTACT. INSTRUCTED PT ON THE USE OF CALL LIGHT FOR ASSISTANCE. ENDORSED PT TO PRIMARY NURSE ABBEY
--- NOTE | 2019-03-23 23:32 | NUR ---
RESTING IN BED, NEW ADM. A/O X4. DENIES HEADACHE/DIZZINESS. RESP. EVEN AND UNLABORED. LUNG SOUNDS CLEAR BILAT. ON ROOM AIR, SAT. 96%. DENIES SOB. NO ACUTE DISTRESS NOTED. AFEBRILE AND VITAL SIGNS STABLE. DENIES CP OR ANY DISCOMFORT AT THIS TIME. STARTED ON IVF, NS AT 70ML/HR, INTACT AND INFUSING VIA RH, SITE CLEAR. ABLE TO MOVE ALL EXTS, BUT WITH UNSTEADY GAIT, GEN. WEAKNESS, NEEDS ASSIST.ABRASION TO LLE AND RLE, SKEIN DRIER, PICTURES TAKEN AND DOCUMENTED.KEPT COMFORTABLE. DUE MEDS GIVEN ORDERED. CALL LIGHT WITHIN REACH. WILL CONTINUE TO MONITOR.
--- NOTE | 2019-03-24 03:18 | NUR ---
NO COMPLAINTS NOTED. EYES CLOSED, APPEARS ASLEEP, EASILY AROUSABLE. NO ACUTE DISTRESS NOTED. WILL CONTINUE TO MONITOR.
[2019-03-24 05:36] VITALS: BP 165/94
--- NOTE | 2019-03-24 06:39 | NUR ---
NO COMPLAINTS NOTED. SLEPT WELL. AFEBRILE AND VITAL SGNS STABLE. RESP. EVEN AND UNLABORED. NO ACUTE DISTRESS NOTED. IVF INTACT AND INFUSING WELL, SITE CLEAR. WILL ENDORSE TO INCOMING NURSE.
--- NOTE | 2019-03-24 07:30 | NUR ---
RECEIVED PT IN BED A/A/OX4 DENIES GRAVES. RESP EVEN AND UNLABORED WITH CLEAR BS BILAT. DENIES ANY SOB/CP/PRESSURE AT THIS TIME. NO EDEMA NOTED. ABD SOFT, NONTENDER WITH ACTIVE BS X4. DENIES ANY N/V AT THIS TIME. VOIDING FREELY. ABLE TO TRANSFER FROM BED TO WC. NOTED WITH LARGE DRY LACERATIONS WITH SCABS TO LLE AND SMALLER DRY LACERATIONS TO RLE. CALL LIGHT IN REACH NEEDS ATTENDED TO.
[2019-03-24 08:13] VITALS: BP 160/107
[2019-03-24 08:53] LABS: CALCIUM 8.4 mg/dL (8.5-10.1); CARBON DIOXIDE 21.2 mmol/L (21-32); CHLORIDE SERUM 105 mmol/L (98-107); GFR1 > 60 mL/min; GLUCOSE SERUM 143 mg/dL (74-106); POTASSIUM SERUM 3.7 mmol/L (3.5-5.1); SODIUM SERUM 136 mmol/L (136-145)
[2019-03-24 10:02] LABS: BASOPHIL % 0.5 % (0-2); PLATELET COUNT 166 x10^3mcL (130-400); RED CELL DISTRIBUTION WIDTH 12.8 % (11.5-14.5)
[2019-03-24 11:45] VITALS: BP 142/84
--- NOTE | 2019-03-24 12:00 | NUR ---
PT AND VISITOR AT BEDSIDE ASKED ABOUT HIV MEDS, PER PT THEY ARE SOMEWHERE IN HIS BELONGINGS BUT PT DID NOT WANT TO ALLOW ATTENDING NURSE TO LOOK FOR THEM OR VISITOR STATED HE WOULD LOOK FOR THEM LATER. MADE AWARE MEDS NOT AVAILABLE IN FORMULARY.
[2019-03-24 13:02] VITALS: Ht 177.8 cm; Wt 55.4 kg
--- NOTE | 2019-03-24 13:44 | NUR ---
PT C/O PAIN TO BLE 02/09, MEDCIATED WITH NORCO PER EMAR. CALL LIGHT IN REACH NEEDS ATTENDED TO.
--- NOTE | 2019-03-24 18:05 | NUR ---
MADE AWARE OF ELEVATED B/P SBP 172, DR. CORNEJO PAGED FOR B/P MEDS AWAITING CALL BACK.
[2019-03-24 18:07] VITALS: BP 172/102
--- NOTE | 2019-03-24 18:33 | NUR ---
NO CALL BACK YET DR. CORNEJO PAGED ONCE MORE.
--- NOTE | 2019-03-24 18:55 | NUR ---
SPOKE WITH DR. ARROYO MADE AWARE OF ELEVATED B/P WITH ORDER TO GIVE SCHEDULE 2100 DOSE OF HYDRALAZINE NOW AND HAVE NOC NURSE F/U WITH B/P FOR PRN DOSE.
--- NOTE | 2019-03-24 20:00 | NUR ---
RECEIVED PT IN BED, ALERT AND ORIENTED. ABLE TO VERBALIZE NEEDS.RESP. EVEN AND UNLABORED. ON ROOM AIR, NO ACUTE DISTRESS NOTED. DENIES HEADACHE/DIZZINESS. AFEBRILE AND VITAL SIGNS STABLE. IVF, NS AT 70ML/HR, INTACT AND INFUSING VIA RH, SITE CLEAR.VOIDING FREELY. NO COMPLAINTS NOTED AT THIS TIME.CALL LIGHT WITHIN REACH. WILL CONTINUE TO MONITOR.
[2019-03-24 20:40] VITALS: BP 152/94
--- NOTE | 2019-03-24 21:15 | NUR ---
COMPLAINED OF GEN. BODY PAIN, 5/, REQUESTING PAIN MED, MEDICATED WITH NORCO PO ORDERED. WILL CONTINUE TO MONITOR.
[2019-03-24 21:44] VITALS: BP 152/94
--- NOTE | 2019-03-25 01:59 | NUR ---
NO COMPLAINTS NOTED. EYES CLOSED AT THIS TIME, APPEARS ASLEEP, EASILY AROUSABLE. RESP. EVEN AND UNLABORED. NO DISTRESS NOTED. CALL LIGHT WITHIN REACH. WILL CONTINUE TO MONITOR.
[2019-03-25 06:06] VITALS: BP 160/92
--- NOTE | 2019-03-25 06:35 | NUR ---
NO COMPLAINTS NOTED DURING THE NIGHT. RESP. EVEN AND UNLABORED. NO ACUTE DISTRESS NOTED. AFEBRILE AND VITAL SIGNS STABLE.IVF INTACT AND INFUSING WELL, SITE CLEAR. DUE MEDS GIVEN ORDERED, BINDU. WELL. KEPT COMFORTABLE. WILL ENDORSE TO INCOMING NURSE.
[2019-03-25 06:44] LABS: BASOPHIL % 0.8 % (0-2); PLATELET COUNT 154 x10^3mcL (130-400); RED CELL DISTRIBUTION WIDTH 12.6 % (11.5-14.5)
[2019-03-25 07:07] LABS: CALCIUM 8.5 mg/dL (8.5-10.1); CARBON DIOXIDE 25.9 mmol/L (21-32); CHLORIDE SERUM 106 mmol/L (98-107); CREATININE SERUM 1.1 mg/dL (0.7-1.3); GFR1 > 60 mL/min; GLUCOSE SERUM 75 mg/dL (74-106); PHOSPHOROUS 3.4 mg/dL (2.5-4.9); POTASSIUM SERUM 4.3 mmol/L (3.5-5.1); SODIUM SERUM 140 mmol/L (136-145)
--- NOTE | 2019-03-25 07:15 | NUR ---
RECEIVED BEDSIDE REPORT FROM CUSTOMER SOLUTIONS TEAMMATE NURSE AT THIS TIME. PATIENT SITTING UP ON SIDE OF BED. NO APPARENT DISTRESS OR DISCOMFORT NOTED. BREATHING EVEN AND UNLABORED. NO RESPIRATORY DISTRESS NOTED. NO INDICATION OF CHEST PAIN/PRESSURE AT THIS TIME. ABRASIONS NOTED TO BLE. IV PATENT AND INTACT. ALL QUESTIONS AND CONCERNS ADDRESSED. ALL NEEDS ATTENDED TO. WILL CONTINUE TO MONITOR
--- NOTE | 2019-03-25 08:28 | NUR ---
PATIENT C/O 5/10 PAIN TO RLE AT THIS TIME. PATIENT MEDICATED WITH NORCO PRN. PATIENT TOLERATED WELL. NO ADVERSE EFFECTS NOTED. ALL NEEDS ATTENDED TO. WILL CONTINUE TO MONITOR
[2019-03-25 09:18] VITALS: BP 145/89
--- NOTE | 2019-03-25 09:30 | NUR ---
ALL MORNING MEDICATIONS ADMINISTERED. PATIENT TOLERATED WELL. NO ADVERSE EFFECTS NOTED. ALL NEEDS ATTENDED TO. WILL CONTINUE TO MONITOR
--- NOTE | 2019-03-25 10:15 | NUR ---
RECEIVED CALL FROM [employer] REGARDING PATIENT POSITIVE MRSA OF THE NARES. PAGED DR LLOYD AT THIS TIME TO REPORT. AWAITING CALL BACK. CONTACT ISOLATION PRECAUTIONS IN PLACE. ALL NEEDS ATTENDED TO
--- NOTE | 2019-03-25 10:22 | NUR ---
SPOKE TO DR LLOYD AT THIS TIME REGARDING PATIENT POSITIVE FOR MRSA NARES. AWAITING ORDERS AT THIS TIME. WILL CONTINUE TO MONITOR
--- NOTE | 2019-03-25 12:45 | NUR ---
PATIENT SITTING UP IN BED EATING LUNCH AT THIS TIME. PATIENT TOLERATING DIET WELL. NO APPARENT DISTRESS OR DISCOMFORT NOTED. ALL NEEDS ATTENDED TO. WILL CONTINUE TO MONITOR
[2019-03-25 17:58] VITALS: BP 185/116
--- NOTE | 2019-03-25 17:59 | NUR ---
PATIENT SITTING UP IN BED EATING DINNER AT THIS TIME. PATIENT TOLERATING WELL. NO APPARENT DISTRESS NOTED. ALL NEEDS ATTENDED TO. WILL CONTINUE TO MONITOR
--- NOTE | 2019-03-25 18:00 | NUR ---
DR LLOYD AWARE OF PATIENTS ELEVATED BLOOD PRESSURE. AWAITING ORDERS FOR BLOOD PRESSURE MEDICATION AT THIS TIME. ALL NEEDS ATTENDED TO. WILL CONTINUE TO MONITOR
[2019-03-25 18:14] VITALS: BP 161/100
--- NOTE | 2019-03-25 18:30 | NUR ---
PATIENT RESTING COMFORTABLY IN BED AT THIS TIME. NO APPARENT DISTRESS OR DISCOMFORT NOTED. IV PATENT AND INTACT. ALL QUESTIONS AND CONCERNS ADDRESSED. ALL NEEDS ATTENDED TO. SAFETY PRECAUTIONS MAINTAINED. CONTACT ISOLATION PRECAUTIONS IN PLACE. WILL ENDORSE ALL CARE TO AIRCRAFT SEAT UPHOLSTERER NURSE
--- NOTE | 2019-03-25 20:17 | NUR ---
RECEIVED AWAKE AND VERBALLYRESPONISVE. ABLE TO MAKE NEEDS KNOWN. SKIN WARM AND DRY TO TOUCH. RESPIRATION EVEN AND UNLABORED. DENIES ANY PAIN/DISCOMFORT AT THIS TIME. PLACED CALL LIGHT WITHIN REACH. CONTINUE TO MONITOR.
--- NOTE | 2019-03-25 21:00 | NUR ---
USES URINAL FOR BLADDER ELIMINATION. KEPT CLEAN AND DRY . CALL LIGHT WITHIN REACH.
[2019-03-25 21:30] VITALS: BP 150/87
--- NOTE | 2019-03-26 | NUR ---
EYES CLOSED, NO FACIAL GRIAMCING. RESPIRATION EVEN AND UNLABORED. BREATHING TREATMENT IN PROGRESS. BED LOCKED/LOWEST POSITION FOR SAFETY.
[2019-03-26 05:39] VITALS: BP 148/88
--- NOTE | 2019-03-26 06:17 | NUR ---
CONTINUES ON IVF NS AT 100CC/HR VIA PERIPHERAL LINE. ORAL FLUIDS TOLERATING WELL. KEPT CLEAN AND DRY.
[2019-03-26 07:27] LABS: BASOPHIL % 0.8 % (0-2); PLATELET COUNT 164 x10^3mcL (130-400); RED CELL DISTRIBUTION WIDTH 13.1 % (11.5-14.5)
[2019-03-26 07:50] LABS: CALCIUM 9.4 mg/dL (8.5-10.1); CARBON DIOXIDE 24.5 mmol/L (21-32); CHLORIDE SERUM 103 mmol/L (98-107); GFR1 > 60 mL/min; GLUCOSE SERUM 60 mg/dL (74-106); MAGNESIUM 1.9 mg/dL (1.8-2.4); PHOSPHOROUS 3.4 mg/dL (2.5-4.9); POTASSIUM SERUM 4.6 mmol/L (3.5-5.1); SODIUM SERUM 137 mmol/L (136-145)
[2019-03-26 09:23] VITALS: BP 145/93
--- NOTE | 2019-03-26 10:35 | NUR ---
ROUNDS WITH MEDICAL TEAM. DISCUSSED PATIENT'S HOME MED, ANTIVIRAL FOR HIV WITH DR. TAI. PATIENT REPORTS HE HAS AT HOME BUT NO ONE HAS BROUGHT MEDICATION TO HOSPITAL.
--- NOTE | 2019-03-26 11:19 | NUR ---
PATIENT SITTING IN BED TALKING WITH LANDING SCALER, NO NEEDS AT THIS TIME, NO DISTRESS. WILL MONITOR.
--- NOTE | 2019-03-26 12:50 | NUR ---
PATIENT SITTING UP EATING LUNCH. NO NEEDS AT THIS TIME. NO DISTRESS NOTED.
--- NOTE | 2019-03-26 13:20 | NUR ---
Initial Nutrition Assessment: 243/B VASHTI DIETRICH IA HR Dx: Failure to thrive, dehydration PMHx: COPD, CHF, HTN, CAD, AIDS PSHx: None Labs: BG 60L, BUN 25H Meds: Apresoline, Colace, norco, zofran Diet: CCHO PO Intake: (03/25) dinner 100%, (03/24) lunch 90%, breakfast 100% Ht: 177.8 cm (70") Wt: 55.3 kg (121#) BMI: 17.5 kg/m2 Bed scale: 59.7 kg IBW: 166# (75 kg) %IBW: 73 UBW: does not remember Age: 53/M Food Allergies: NKFA Skin: abrasions to BLE Chong: 15 Edema: none GI: Last BM: 03/23 Per H&P, Pt is a 53 years male with PMH of COPD, CHF, HTN, CAD was brought in to the ED by [employer] who works with the homeless because patient had generalized weakness. Patient stated he feels weak all the time and has mild shortness of breath. RDN Visit (03/26): Patient was alert and oriented and said that he ate all of his breakfast this morning but was complaining of him being on a diabetic diet. Spoke with Dr. Betancourt to change the diet to regular and to add Ensure BID. Dr. Betancourt agreed with the recommendations. Problem with: N/V/D/C: none Problems with: Chewing/Swallowing: none Current appetite: good Recent wt change: none %wt change: N/A Vitamin/Supplement use: none Special diet at home: regular Physical activity: none Nutrition education given: Patient has been given education about dietary guidelines specific to HIV/AIDS. Patient did not have any questions at this time Food-drug interactions: Colace- high fiber w/1502-8601 ml fluids Education given: yes Estimated Nutritional Needs Based on actual body weight 59.7 kg Energy: 0594-6480 kcal/d (25-30 kcal/kg) Protein: 60-72 g/d (1.0-1.2 g/kg)- preserve LBM Fluid: 3279-0351 ml/d (1 ml/kcal) or per doctor Nutrition Diagnosis 1. Malnutrition related to AIDS as evidenced by BMI 17.5 kg/m2 and muscle wasting. Intervention 1. Recommend Regular diet to Ensure Enlive BID. Ensure will provide additional 700 kcal and 40g protein. Monitor/Evaluate Goal: PO intake at least 75% of estimated needs Monitor: PO intake, Labs, GI function F/U in 3-5 days as moderate risk
--- NOTE | 2019-03-26 13:20 | NUR ---
1. Recommend Regular diet to Ensure Enlive BID. Ensure will provide additional 700 kcal and 40g protein.
--- NOTE | 2019-03-26 13:30 | NUR ---
CHECKED ON PATIENT, SITTING IN BED, AWAKE, ALERT. NO NEEDS AT THIS TIME.
--- NOTE | 2019-03-26 15:18 | NUR ---
PATIENT ASLEEP, REGULAR RESPS. WILL MONITOR.
--- NOTE | 2019-03-26 16:51 | NUR ---
PERFORMED [facility] BED BATH, PROVIDED WITH FRESH GOWN. PATIENT GRATEFUL. POSITIONED FOR COMFORT. PATIENT COMPLAINING OF 8/10 PAIN TO RIGHT FOOT. PATIENT REFUSES TO HAVE SOCKS REMOVED TO LOOK AT SKIN OF FEET. REPORTS PAIN IS NEUROPATHY. NORCO GIVEN PER OCT. WILL MONITOR.
[2019-03-26 17:08] VITALS: BP 159/98
--- NOTE | 2019-03-26 17:13 | NUR ---
PATIENT REPORTS PAIN IMPROVING AFTER NORCO. REQUESTING ICE, PROVIDED TO HIM. NO OTHER NEEDS AT THIS TIME.
--- NOTE | 2019-03-26 17:45 | NUR ---
SPOKE WITH HAMZAH IN CASE MANAGEMENT WHO IS ASKING NURSE TO LOOK FOR A PRESCRIPTION BOTTLE FOR TRIUMEQ IN PATIENT'S BELONGINGS. PATIENT AGREED FOR NURSE TO LOOK THROUGH HIS BELONGINGS. FOUND BOTTLE WITH APPROXIMATELY 20 PILLS, LABELED TRIUMEQ. HAMZAH INFORMED. MEDICATION TAKEN TO PHARMACY FOR ADMINISTRATION PER DOCTOR ORDER. MEDICATION TO GO WITH PATIENT WHEN DISCHARGED FROM FACILITY.
--- NOTE | 2019-03-26 19:25 | NUR ---
REPORT GIVEN TO HENRIETTA HUSAIN. PATIENT AWAKE, ALERT, NO DISTRESS NOTED. IV TO RIGHT HAND INFUSING WITHOUT COMPLICATIONS. BED LOW, CALL LIGHT WITHIN REACH. ENDORSED HOME MEDS AT PHARMACY. CARE ENDORSED.
--- NOTE | 2019-03-26 19:30 | NUR ---
RECIVED PATIENT AT START OF SHIFT ALERT AND ORIENTED TO PERSON PLACE AND TIME. DENIES PAIN. NO SOB NOTED ON RA, BREATHS REGULAR AND EVEN. MULTIPLE SCATTERED SCABS NOTED ON BLE, ENID. IV TO RH IS INFUSING WITHOUT ERYTHEMA OR INFILTRATION. BED LOCKED AND IN LOWEST POSIITON. CALL LIGHT AND BEDSIDE TABLE WITHIN REACH.
--- NOTE | 2019-03-26 20:50 | NUR ---
PATIENT'S IV WAS REMOVED DUE TO LEAKING, CATHETER INTACT. PATIENT REFUSES ATTEMPTS AT STARTING ANOTHER IV. WILL NOTIFY DR. KENNY.
--- NOTE | 2019-03-26 21:41 | NUR ---
PATIENT GIVEN NORCO PER EMAR FOR REPORT OF RIGHT FOOT PAIN 03/11.
[2019-03-26 22:07] VITALS: BP 140/94
--- NOTE | 2019-03-27 01:00 | NUR ---
PATIENT IS SITTING UP IN BED AWAKE WATCHING TV. DENIES PAIN, DENIES SOB. CALL LIGHT WITHIN REACH.
[2019-03-27 05:31] VITALS: BP 144/94
[2019-03-27 06:30] LABS: BASOPHIL % 0.7 % (0-2); PLATELET COUNT 169 x10^3mcL (130-400); RED CELL DISTRIBUTION WIDTH 12.8 % (11.5-14.5)
[2019-03-27 06:40] LABS: CALCIUM 9.4 mg/dL (8.5-10.1); CARBON DIOXIDE 28.1 mmol/L (21-32); CHLORIDE SERUM 100 mmol/L (98-107); GFR1 > 60 mL/min; GLUCOSE SERUM 67 mg/dL (74-106); MAGNESIUM 2.1 mg/dL (1.8-2.4); PHOSPHOROUS 3.5 mg/dL (2.5-4.9); POTASSIUM SERUM 4.7 mmol/L (3.5-5.1); SODIUM SERUM 137 mmol/L (136-145)
--- NOTE | 2019-03-27 06:51 | NUR ---
PATIENT IS RESTING WITH BLANKET OVER HIS FACE, SNORING IS AUDIBLE. MD AWARE OF NO IV ACCESS. BED LOCKED AND IN LOWEST POSIITON. CALL LIGHT AND BEDSIDE TABLE WITHIN REACH. WILL ENDORSE CARE TO DAYSHIFT NURSE.
--- NOTE | 2019-03-27 07:20 | NUR ---
RECEIVED PT FROM STEEL LAYOUT WORKER. PT AWAKE, ALERT. A/OX3 PT ON ROOM AIE WITH NO RESP DISTRESS NOTED. PT HAS NO IV ACCESS AT THIS TIME. PERIPHERAL PULSES PALPABLE, NO EDEMA NOTED. ACTIVE BS NOTED. PT REPORTS HAVING TROUBLE AMBULATING TO THE RESTROOM. PT ENCOURAGED TO USE CALL LIGHT FOR ANY ASSISTANCE. PT REPORTS PAIN TO RIGHT FOOT. REQUESTING NORCO. WILL MEDICATE. SAFETY MEASURES IN PLACE. BED LOW AND LOCKED. CALL LIGHT WITHIN REACH.
[2019-03-27 08:12] VITALS: BP 146/106
--- NOTE | 2019-03-27 08:30 | NUR ---
PT REQUESTING NORCO FOR PAIN IN RIGHT FOOT. MED ADMINISTERED ORDERED PRN (SEE EMAR).
--- NOTE | 2019-03-27 10:16 | NUR ---
PT ASLEEP AT THIS TIME WITH NO DISCOMFORT OR DISTRESS NOTED.
[2019-03-27 11:48] VITALS: BP 133/84
--- NOTE | 2019-03-27 12:30 | NUR ---
CALLED REPORT TO [facility], SPOKE TO ZANDER. PT TO BE TRANSFERRED BY SAM[facility]. EST TECHNICAL PROJECT MANAGER TIME 1400.
--- NOTE | 2019-03-27 13:13 | NUR ---
ACKNOWLEDGEMENT OF TRANSFER SIGNED BY PATIENT. PT RESTING WITH NO ACUTE DISTRESS NOTED AT THIS TIME.
--- NOTE | 2019-03-27 13:14 | NUR ---
PT SITTING UP AT BEDSIDE WITH NO ACUTE DISTRESS OR DISCOMFORT NOTED. DUE MED ADMINISTERED. PT COMPLAINING ABOUT FOOD AND SERVICE. STATES HE WAITED "15 MIN TO GET A BREAD ROLL". ALL CONCERNS ADDRESSED AT THIS TIME. SAFETY MEASURES MAINTAINED.
[2019-03-27 13:24] VITALS: BP 133/84
--- NOTE | 2019-03-27 13:30 | NUR ---
DISCHARGE PAPERWORK/EDUCATION PROVIDED TO PT. PLACED IN TRANSPORT PAPERWORK. DISCHARGE PHOTO TAKEN OF LLE AND PUT IN CHART. NO ACUTE DISTRESS OR DISCOMFORT NOTED AT THIS TIME. AWAITING TRANSPORTATION.
[2019-03-27 13:48] VITALS: BP 133/84
--- NOTE | 2019-03-27 15:25 | NUR ---
AWAITING TRANSPORTATION AT THIS TIME.
--- NOTE | 2019-03-27 15:35 | NUR ---
PHYSICAL THERAPY DAILY NOTES CO-SIGN All documentation done by the Mill Control Operator for 03/27/19 has been reviewed. I agree with the documentation. Reviewed/Co-Signed by: Mary Barba PT Documentation Done by:NELSON JIMENEZ PTA
[2019-03-27 16:26] VITALS: BP 130/78
--- NOTE | 2019-03-27 16:37 | NUR ---
AWAITING TRANSPORTATION, PT IN NO ACUTE DISTRESS OR DISCOMFORT AT THIS TIME. ALL NEEDS MET. CALL LIGHT WITHIN REACH.
--- NOTE | 2019-03-27 16:45 | NUR ---
PREMIER CALLED TO F/U ON WIND FARM ENGINEER TIME, HAS BEEN PUSHED BACK ABOUT ANOTHER 1HRS. CONT TO WAIT FOR WIND FARM ENGINEER.
== END 2019-03-27 18:32 | DRG 421 ==
LOC: ED 14:08 → MU 19:35
PROVIDERS: Emergency Medicine; General Practice; ADMIT Internal Medicine
DX: R62.7 Adult failure to thrive (principal); N17.0 Acute kidney failure with tubular necrosis; E43 Unspecified severe protein-calorie malnutrition; B20 Human immunodeficiency virus [HIV] disease; I11.0 Hypertensive heart disease with heart failure; I50.9 Heart failure, unspecified; E86.0 Dehydration; E87.1 Hypo-osmolality and hyponatremia; Z68.1 Body mass index [BMI] 19.9 or less, adult; R80.9 Proteinuria, unspecified; J44.9 Chronic obstructive pulmonary disease, unspecified; R74.0 Nonspecific elevation of levels of transaminase and lactic acid dehydrogenase [LDH]; I25.10 Atherosclerotic heart disease of native coronary artery without angina pectoris; F17.210 Nicotine dependence, cigarettes, uncomplicated; Z59.0 Homelessness; Z86.711 Personal history of pulmonary embolism; Z86.73 Personal history of transient ischemic attack (TIA), and cerebral infarction without residual deficits; Z91.19 Patient's noncompliance with other medical treatment and regimen; Z22.322 Carrier or suspected carrier of Methicillin resistant Staphylococcus aureus
CPT/HCPCS: 97110-GP; 97116-GP; 97530-GP; G0378; G0480; J7030; J7620

== ENCOUNTER 2019-07-14 11:29 | Inpatient (IN) | payer MEDICAID ==
[~2019-07-14] VITALS: Ht 182.9 cm; Wt 58.5 kg
[2019-07-14 12:28] LABS: CALCIUM 8.6 mg/dL (8.5-10.1); CARBON DIOXIDE 25.9 mmol/L (21-32); CHLORIDE SERUM 105 mmol/L (98-107); CREATININE SERUM 1.2 mg/dL (0.7-1.3); GFR1 > 60 mL/min; GLUCOSE SERUM 156 mg/dL (74-106); POTASSIUM SERUM 3.1 mmol/L (3.5-5.1); SODIUM SERUM 142 mmol/L (136-145)
[2019-07-14 12:33] LABS: ALBUMIN 3.4 g/dL (3.4-5.0); ALKALINE PHOSPHATASE 52 U/L (46-116); ALT/SGPT 66 U/L (16-63); AST/SGOT 41 U/L (15-37); BILIRUBIN TOTAL 0.9 mg/dL (0.20-1.00); TOTAL PROTEIN, SERUM 7.7 g/dL (6.4-8.2)
[2019-07-14 12:43] LABS: BASOPHIL % 0.7 % (0-2); PLATELET COUNT 181 x10^3mcL (130-400); RED CELL DISTRIBUTION WIDTH 12.7 % (11.5-14.5)
[2019-07-14] MEDS ORDERED: HYDRALAZINE HCL25 MG PO (14:22)
[2019-07-14] MEDS ORDERED: COR6 PO (14:22)
[2019-07-14] MEDS ORDERED: NOR5 PO (14:23)
[2019-07-14] MEDS ORDERED: CLARITIN LIQUI-10 MG PO (14:23)
[2019-07-14] MEDS ORDERED: LISINOPRIL20 MG PO (14:30)
[2019-07-14] MEDS ORDERED: PROVENTIL0.09 MG/A1 (14:31)
[2019-07-14] MEDS ORDERED: ZITHROMAX TRI-500 MG PO (14:32)
[2019-07-14 14:55] LABS: T3 TOTAL 1.36 ng/mL
[2019-07-14 14:59] LABS: FREE T4 1.05 ng/dL (0.76-1.46); FREE THYROXINE INDEX 3.2 ug/dL (1.4-4.5); T4(THYROXINE) 9.7 ug/dL (4.7-13.3)
[2019-07-14 15:24] LABS: CHOLESTEROL/HDL RATIO 3.5
[2019-07-14 16:55] VITALS: BP 166/101
[2019-07-14 20:59] VITALS: BP 163/116
[2019-07-14 21:01] VITALS: BP 121/61
[2019-07-15 05:38] VITALS: BP 150/99
[2019-07-15 06:27] LABS: CALCIUM 8.3 mg/dL (8.5-10.1); CHLORIDE SERUM 108 mmol/L (98-107); CREATININE SERUM 1.2 mg/dL (0.7-1.3); GFR1 > 60 mL/min; GLUCOSE SERUM 85 mg/dL (74-106); POTASSIUM SERUM 3.6 mmol/L (3.5-5.1); SODIUM SERUM 143 mmol/L (136-145)
[2019-07-15 06:36] LABS: BASOPHIL % 0.7 % (0-2); PLATELET COUNT 152 x10^3mcL (130-400)
[2019-07-15 06:44] LABS: MAGNESIUM 2.2 mg/dL (1.8-2.4); PHOSPHOROUS 3.2 mg/dL (2.5-4.9)
[2019-07-15 09:44] VITALS: BP 156/96
[2019-07-15 17:18] VITALS: BP 150/91
[2019-07-15 21:18] VITALS: BP 136/85
[2019-07-16 00:09] LABS: microscopic required? YES; urine erythrocyte NEGATIVE (NEGATIVE)
[2019-07-16 00:22] LABS: AMPHETAMINE QUAL UR NONE DETECTED (See below)
[2019-07-16 04:22] VITALS: BP 133/73
[2019-07-16 08:50] VITALS: BP 134/85
[2019-07-16 16:55] VITALS: BP 139/72
[2019-07-16 21:20] VITALS: BP 137/78
[2019-07-17] VITALS (7 sets, daily range): BP systolic 118–151; BP diastolic 61–92; Ht 182.9 cm; Wt 58.5 kg
[2019-07-17] MEDS ORDERED: TRIUMEQ1 TAB PO (09:59)
[2019-07-18 06:14] VITALS: BP 121/89
[2019-07-18 09:02] VITALS: BP 105/74
[2019-07-18 16:02] VITALS: BP 102/67
[2019-07-18 20:36] VITALS: BP 111/73
[2019-07-19 05:51] VITALS: BP 106/80
[2019-07-19 08:53] VITALS: BP 123/78
[2019-07-19 16:51] VITALS: BP 125/81
[2019-07-19 20:45] VITALS: BP 119/75
[2019-07-20 05:39] VITALS: BP 108/64
[2019-07-20 08:43] VITALS: BP 111/76
[2019-07-20 17:02] VITALS: BP 112/82
[2019-07-20 21:09] VITALS: BP 126/84
[2019-07-21 05:58] VITALS: BP 109/80
[2019-07-21 09:21] VITALS: BP 116/79
[2019-07-21 17:32] VITALS: BP 117/81
[2019-07-21 21:03] VITALS: BP 118/73
[2019-07-22 05:31] VITALS: BP 124/85
[2019-07-22 06:34] LABS: BASOPHIL % 0.8 % (0-2); PLATELET COUNT 177 x10^3mcL (130-400); RED CELL DISTRIBUTION WIDTH 12.4 % (11.5-14.5)
[2019-07-22 06:50] LABS: CARBON DIOXIDE 24.8 mmol/L (21-32); CREATININE SERUM 1.4 mg/dL (0.7-1.3); POTASSIUM SERUM 4.6 mmol/L (3.5-5.1)
[2019-07-22 09:24] VITALS: BP 130/74
[2019-07-22 17:57] VITALS: BP 115/72
[2019-07-22 19:30] VITALS: BP 103/71
[2019-07-23 05:11] VITALS: BP 133/83
[2019-07-23 06:27] LABS: CALCIUM 9.3 mg/dL (8.5-10.1); CARBON DIOXIDE 23.2 mmol/L (21-32); CHLORIDE SERUM 100 mmol/L (98-107); CREATININE SERUM 1.3 mg/dL (0.7-1.3); GFR1 > 60 mL/min; GLUCOSE SERUM 80 mg/dL (74-106); POTASSIUM SERUM 4.4 mmol/L (3.5-5.1); SODIUM SERUM 136 mmol/L (136-145)
[2019-07-23 06:51] LABS: PLATELET COUNT 186 x10^3mcL (130-400)
[2019-07-23 09:08] VITALS: BP 116/77
[2019-07-23 16:27] VITALS: BP 132/89
[2019-07-23 21:36] VITALS: BP 135/87
[2019-07-24 05:30] VITALS: BP 113/73
[2019-07-24 07:16] LABS: CALCIUM 8.9 mg/dL (8.5-10.1); CARBON DIOXIDE 23.3 mmol/L (21-32); CHLORIDE SERUM 101 mmol/L (98-107); CREATININE SERUM 1.2 mg/dL (0.7-1.3); GFR1 > 60 mL/min; GLUCOSE SERUM 87 mg/dL (74-106); SODIUM SERUM 135 mmol/L (136-145)
[2019-07-24 08:05] LABS: BASOPHIL % 0.8 % (0-2); PLATELET COUNT 185 x10^3mcL (130-400); RED CELL DISTRIBUTION WIDTH 12.1 % (11.5-14.5)
[2019-07-24 08:59] VITALS: BP 129/85
[2019-07-24 16:58] VITALS: BP 116/77
[2019-07-24 20:41] VITALS: BP 118/80
[2019-07-25 05:28] VITALS: BP 122/80
[2019-07-25 06:43] LABS: CALCIUM 9.4 mg/dL (8.5-10.1); CARBON DIOXIDE 28.6 mmol/L (21-32); CREATININE SERUM 1.4 mg/dL (0.7-1.3); POTASSIUM SERUM 4.6 mmol/L (3.5-5.1)
[2019-07-25 06:55] LABS: BASOPHIL % 1.6 % (0-2); PLATELET COUNT 203 x10^3mcL (130-400); RED CELL DISTRIBUTION WIDTH 12.4 % (11.5-14.5)
[2019-07-25 09:45] VITALS: BP 100/74
[2019-07-25 17:01] VITALS: BP 103/68
[2019-07-25 20:38] VITALS: BP 106/68
[2019-07-26 05:49] VITALS: BP 104/71
[2019-07-26 08:24] VITALS: BP 111/80
[2019-07-26 17:04] VITALS: BP 112/78
[2019-07-26 20:58] VITALS: BP 104/69
[2019-07-27 05:07] VITALS: BP 135/90
[2019-07-27 06:28] LABS: PLATELET COUNT 213 x10^3mcL (130-400); RED CELL DISTRIBUTION WIDTH 12.3 % (11.5-14.5)
[2019-07-27 06:57] LABS: CALCIUM 9.6 mg/dL (8.5-10.1); CARBON DIOXIDE 28.8 mmol/L (21-32); CREATININE SERUM 1.7 mg/dL (0.7-1.3); POTASSIUM SERUM 5.2 mmol/L (3.5-5.1)
[2019-07-27 08:05] VITALS: BP 124/78
[2019-07-27 12:09] VITALS: BP 110/80
[2019-07-27 16:21] VITALS: BP 101/68
[2019-07-27 20:25] VITALS: BP 109/75
[2019-07-28 04:15] VITALS: BP 118/78
[2019-07-28 05:52] VITALS: BP 118/78
[2019-07-28 09:17] VITALS: BP 112/70
[2019-07-28] MEDS ORDERED: BACTRIM DS1 TAB PO (13:47)
[2019-07-28 13:50] VITALS: BP 112/70
[2019-07-28 17:11] VITALS: BP 116/62
[2019-07-28 20:21] VITALS: BP 103/73
[2019-07-29 06:03] VITALS: BP 126/75
[2019-07-29 09:21] VITALS: BP 105/70
[2019-07-29 14:16] VITALS: BP 126/75
[2019-07-29] MEDS ORDERED: HYDRALAZINE HCL25 MG PO (14:30)
[2019-07-29] MEDS ORDERED: CLARITIN LIQUI-10 MG PO (14:30)
[2019-07-29] MEDS ORDERED: LISINOPRIL20 MG PO (14:30)
[2019-07-29] MEDS ORDERED: COR6 PO (14:30)
[2019-07-29] MEDS ORDERED: ZITHROMAX TRI-500 MG PO (14:30)
[2019-07-29] MEDS ORDERED: NOR5 PO (14:30)
[2019-07-29 17:15] VITALS: BP 132/92
[2019-07-29 20:24] VITALS: BP 123/72
[2019-07-30 05:26] VITALS: BP 118/78; BP 135/85
[2019-07-30 08:11] VITALS: BP 105/72
[2019-07-30 16:36] VITALS: BP 105/73
[2019-07-30 21:35] VITALS: BP 123/84
[2019-07-31 06:08] VITALS: BP 131/91
[2019-07-31 08:26] VITALS: BP 105/75
[2019-07-31 16:35] VITALS: BP 99/64
[2019-07-31 20:33] VITALS: BP 94/57
[2019-08-01 05:44] VITALS: BP 120/87
[2019-08-01 08:17] VITALS: BP 113/72
[2019-08-01 15:27] VITALS: BP 126/75
[2019-08-01 20:05] VITALS: BP 120/69
[2019-08-02 05:05] VITALS: BP 111/79
[2019-08-02 07:33] VITALS: BP 124/89
[2019-08-02 17:06] VITALS: BP 102/68
[2019-08-02 20:11] VITALS: BP 111/73
[2019-08-03 05:52] VITALS: BP 121/79
[2019-08-03 08:50] VITALS: BP 128/87
[2019-08-03 17:45] VITALS: BP 100/66
[2019-08-03 22:25] VITALS: BP 108/72
[2019-08-04 06:44] VITALS: BP 116/87
[2019-08-04 09:11] VITALS: BP 130/87
[2019-08-04 17:58] VITALS: BP 103/72
[2019-08-05 05:10] VITALS: BP 122/89
[2019-08-05 08:45] VITALS: BP 133/78
[2019-08-05 18:00] VITALS: BP 100/71
[2019-08-05 21:28] VITALS: BP 114/63
[2019-08-06 06:10] VITALS: BP 131/86
[2019-08-06 06:33] VITALS: BP 131/86
[2019-08-06 08:29] VITALS: BP 102/62
[2019-08-06 16:52] VITALS: BP 104/71
[2019-08-06 19:45] VITALS: BP 109/70
[2019-08-07 05:36] VITALS: BP 118/78
[2019-08-07 08:27] VITALS: BP 133/86
[2019-08-07 12:20] VITALS: BP 117/68
[2019-08-07 15:09] VITALS: BP 126/75
== END 2019-08-07 16:35 | disposition home or self-care (01) | DRG 384 ==
LOC: ED 11:29 → MU 13:39
PROVIDERS: Emergency Medicine; General Practice; ADMIT Internal Medicine
DX: S70.01XA Contusion of right hip, initial encounter (principal); E43 Unspecified severe protein-calorie malnutrition; B20 Human immunodeficiency virus [HIV] disease; I11.0 Hypertensive heart disease with heart failure; I50.9 Heart failure, unspecified; J44.1 Chronic obstructive pulmonary disease with (acute) exacerbation; E87.6 Hypokalemia; R26.2 Difficulty in walking, not elsewhere classified; R29.6 Repeated falls; R74.0 Nonspecific elevation of levels of transaminase and lactic acid dehydrogenase [LDH]; I25.10 Atherosclerotic heart disease of native coronary artery without angina pectoris; F17.210 Nicotine dependence, cigarettes, uncomplicated; Z53.29 Procedure and treatment not carried out because of patient's decision for other reasons; Z68.1 Body mass index [BMI] 19.9 or less, adult; Z86.711 Personal history of pulmonary embolism; Z86.73 Personal history of transient ischemic attack (TIA), and cerebral infarction without residual deficits; W18.39XA Other fall on same level, initial encounter; Y92.018 Other place in single-family (private) house as the place of occurrence of the external cause
CPT/HCPCS: 83880; 84439; 90658; 90732; 94150; 97110-GP; 97112-GP; 97116-GP; 97530-GP; G0378; J2405; J3420; J7030; J7620; Q0092

== ENCOUNTER 2019-08-07 19:43 | Emergency (ER) | payer MEDICAID ==
[~2019-08-07] VITALS: Ht 182.9 cm; Wt 77.1 kg
[~2019-08-07 19:43] MED LIST changes: +CLARITIN LIQUI-10 MG PO; +COR6 PO; +HYDRALAZINE HCL25 MG PO; +LISINOPRIL20 MG PO; +NOR5 PO; +PROVENTIL0.09 MG/A1
[2019-08-07 19:57] VITALS: Ht 182.9 cm; Wt 77.1 kg
[2019-08-07 21:15] LABS: BASOPHIL % 0.3 % (0-2); PLATELET COUNT 128 x10^3mcL (130-400); RED CELL DISTRIBUTION WIDTH 12.9 % (11.5-14.5)
[2019-08-07 21:27] LABS: microscopic required? YES; urine erythrocyte NEGATIVE (NEGATIVE)
[2019-08-07 21:29] LABS: CALCIUM 9.4 mg/dL (8.5-10.1); CREATININE SERUM 1.4 mg/dL (0.7-1.3); POTASSIUM SERUM 4.5 mmol/L (3.5-5.1)
[2019-08-07 21:39] LABS: ALBUMIN 3.3 g/dL (3.4-5.0); BILIRUBIN TOTAL 0.49 mg/dL (0.20-1.00); MAGNESIUM 2.2 mg/dL (1.8-2.4)
[2019-08-07 22:33] VITALS: BP 130/88
== END 2019-08-07 22:33 | disposition home or self-care (01) ==
LOC: ED 19:43
PROVIDERS: Emergency Medicine
DX: R53.1 Weakness (principal); N39.0 Urinary tract infection, site not specified; F17.210 Nicotine dependence, cigarettes, uncomplicated; J45.909 Unspecified asthma, uncomplicated; I11.0 Hypertensive heart disease with heart failure; I50.9 Heart failure, unspecified; Z60.2 Problems related to living alone; Z86.711 Personal history of pulmonary embolism; Z86.73 Personal history of transient ischemic attack (TIA), and cerebral infarction without residual deficits; Z88.6 Allergy status to analgesic agent
CPT/HCPCS: 36415; 99406; Q0092

== ENCOUNTER 2019-09-26 22:07 | Inpatient (IN) | payer OTHER ==
[~2019-09-26] VITALS: Ht 182.9 cm; Wt 58.7 kg
[2019-09-26 22:21] VITALS: Ht 182.9 cm; Wt 58.7 kg
--- NOTE | 2019-09-26 22:28 | NUR ---
PT BIB AMBULANCE CO GENERALIZED WEAKNESS X2 WEEKS. PT STS THE WEAKNESS BECAME INCREASINGLY WORSE TODAY. PT STS HE DOES NOT AMBULATE BUT FELL TODAY. NO VISIBLE TRAUMA. PT IS TALKING IN COMPLETE SENTENCES. NO S/S OF DISTRESS. RESP E/U. COMFORT MEASURES IMPLEMENTED. AWAITING MSE. WILL CONTINUE TO MONITOR.
[2019-09-27] VITALS (8 sets, daily range): BP systolic 120–178; BP diastolic 79–118
[2019-09-27 00:19] LABS: UA SPECIFIC GRAVITY 1.025 (1.005-1.035); microscopic required? YES; urine erythrocyte TRACE (NEGATIVE)
[2019-09-27 00:22] LABS: BASOPHIL % 1.3 % (0-2); PLATELET COUNT 200 x10^3mcL (130-400); RED CELL DISTRIBUTION WIDTH 14.1 % (11.5-14.5)
[2019-09-27 00:49] LABS: AMPHETAMINE QUAL UR POSITIVE (See below)
[2019-09-27 01:03] LABS: T3 TOTAL 0.99 ng/mL
[2019-09-27 01:12] LABS: POTASSIUM SERUM 3.2 mmol/L (3.5-5.1); SODIUM SERUM 142 mmol/L (136-145)
[2019-09-27 01:13] LABS: BILIRUBIN TOTAL 0.5 mg/dL (0.20-1.00); CALCIUM 9.4 mg/dL (8.5-10.1); CARBON DIOXIDE 25.5 mmol/L (21-32); CHLORIDE SERUM 107 mmol/L (98-107); CREATININE SERUM 0.9 mg/dL (0.7-1.3); GFR1 > 60 mL/min; GLUCOSE SERUM 104 mg/dL (74-106); TOTAL PROTEIN, SERUM 7.3 g/dL (6.4-8.2)
[2019-09-27 01:14] LABS: ALKALINE PHOSPHATASE 59 U/L (46-116); ALT/SGPT 73 U/L (16-63); AST/SGOT 44 U/L (15-37); C REACTIVE PROTEIN 0.2 mg/dL (<=0.9)
--- NOTE | 2019-09-27 01:23 | NUR ---
PT STATES TO LEFT LEG PAIN FROM "NEUROPATHY". PT A&OX4, NO ACUTE DISTRSES NOTED, RESP EVEN AND UNLABORED,SITTING UP IN POSITION OF COMFORT, READING ON HIS PHONE. PT STATED HE RAN OUT OF BP MEDICATION AND HAS NO WHERE TO FILL THE MEDICATIONS FOR PAST 2 WEEKS. MD MADE AWARE.
[2019-09-27 01:25] LABS: ERYTHROCYTE SED RATE 43 mm/hr (0-20)
--- NOTE | 2019-09-27 01:56 | NUR ---
REPORT CALLED TO SAUL SHRESTHA TELE
--- NOTE | 2019-09-27 03:00 | NUR ---
RECEIVED PT FROM PREVIOUS SHIFT NURSE. PT AOX4. DENIES GRAVES. ON TELE #28, READING SR. DENIES CP/PRESSURE. DENIES SOB/DIFFICULTY BREATHING, ON RA. ERYTHEMA NOTED TO BUTTOCKS AND SCROTUM, ZGUARD AND OPTIFOAM APPLIED. IV TO RFA, INTACT AND PATENT. BED IN LOWEST POSITION. CALL LIGHT WITHIN REACH. WILL CONTINUE TO MONITOR.
[2019-09-27 03:04] LABS: CK-MB 2.7 ng/mL (0-3.6)
[2019-09-27 03:13] LABS: FREE T4 1.16 ng/dL (0.76-1.46); FREE THYROXINE INDEX 3.5 ug/dL (1.4-4.5); T4(THYROXINE) 10.5 ug/dL (4.7-13.3)
[2019-09-27 04:12] LABS: CHOLESTEROL/HDL RATIO 4.1
--- NOTE | 2019-09-27 04:39 | NUR ---
HYDRALAZINE GIVEN IVP PER EMAR. SLOW PUSH WITNESSED AT BEDSIDE BY HENRIETTA ROCHA. IV PATENT. WILL CONTINUE TO MONITOR.
[2019-09-27 06:15] LABS: BASOPHIL % 1.2 % (0-2); PLATELET COUNT 199 x10^3mcL (130-400)
--- NOTE | 2019-09-27 07:25 | NUR ---
RECEIVED PT FROM JENNIFER RN. PT AA/OX4 LAYING IN BED. NO S/S OF ACUTE DISTRESS. NSR ON TELE 28. HR 85. NO CHEST PAIN. NO SOB ON ROOM AIR. CALM/COOPERATIVE. FALL PREC IN PLACE. NO N/V. NO CHILLS. NO FEVER. IV WNL TO RFA, IVF FLOWING. SITE WNL. FLUSHES WELL. IVF FLOWING. BED IN LOW POSITION. CALL LIGHT WITHIN REACH. INSTRUCTED TO USE CALL LIGHT TO CALL FOR ASSISTANCE PRN. PT VERBALIZED UNDERSTANDING. WILL CONT. TO MONITOR.
[2019-09-27 07:48] LABS: CALCIUM 9.2 mg/dL (8.5-10.1); CHLORIDE SERUM 107 mmol/L (98-107); GFR1 > 60 mL/min; GLUCOSE SERUM 79 mg/dL (74-106); PHOSPHOROUS 3.7 mg/dL (2.5-4.9); POTASSIUM SERUM 3.4 mmol/L (3.5-5.1); SODIUM SERUM 144 mmol/L (136-145)
--- NOTE | 2019-09-27 11:00 | NUR ---
PT RESTING IN BED WITH BOTH EYES CLOSED. NO S/S OF ACUTE DISTRESS. NO SOB ON ROOM AIR. NO S/S OF PAIN. FALL PREC IN PLACE. IV WNL TO RFA, IVF FLOWING. CALM/COOPERATIVE AT THIS TIME. BED IN LOW POSITION. CALL LIGHT WITHIN REACH. WILL CONT. TO MONITOR.
--- NOTE | 2019-09-27 18:19 | NUR ---
PT RESTING IN BED W/ BOTH EYES CLOSED. EASILY AROUSABLE TO VERBAL STIMULI. NO S/S OF ACUTE DISTRESS. NO C/O PAIN AT THIS TIME. NO SOB ON ROOM AIR. NO CHEST PAIN. NO N/V. NO CHILLS. NO FEVER. IV WNL TO RFA, IVF FLOWING. CALM/COOPERATIVE. BED IN LOW POSITION. CALL LIGHT WITHIN REACH. WILL ENDORSE TO ONCOMING SHIFT.
--- NOTE | 2019-09-27 20:00 | NUR ---
RECEIVED PT IN BED, RESTING , LERT AND ORIENTED.ABLE TO VERBALIZE NEEDS. RESP. EVEN AND UNLABORED. NO ACUTE DISTRESS NOTED. AFEBRILE AND VITAL SIGNS STABLE. SR ON THE MONITOR, DENIES CP OR ANY DISCOMFORT AT THIS TIME. IVF, NS AT 70ML/HR, INTACT AND INFUSING VIA RFA, INTACT AND PATENT. WITH GEN. WEAKNESS, ABLE TO TURN AND REPOSITION SELF IN BED. VOIDS FREELY, BUT INCONT. AT TIMES. ASSISTED WITH HS CARE. CALL LIGHT WITHIN REACH. WILL CONTINUE TO MONITOR.
--- NOTE | 2019-09-27 23:51 | NUR ---
COMPLAINED OF LEGS PAIN. 01/09, REQUESTING PAIN MED, MEDICATED WITH NORCO ORDERED. WILL CONTINUE TO MONITOR.
--- NOTE | 2019-09-28 01:34 | NUR ---
RESTING QUIETLY IN BED, WITH EYES CLOSED, APPEARS ASLEEP, EASILY AROUSABLE. RESP. EVEN AND UNLABORED. NO ACUTE DISTRESS NOTED. IVF INTACT AND INFUSING, SITE CLEAR. CALL LIGHT WITHIN REACH. WILL CONTINUE TO MONITOR.
[2019-09-28 04:59] VITALS: BP 130/87
--- NOTE | 2019-09-28 05:39 | NUR ---
NO COMPLAINTS NOTED AT THIS TIME. NO SIGNIFICANT CHANGE NOTED IN PT,S CONDITION. DENIES PAIN OR ANY DISCOMFORT AT THIS TIME. DUE MEDS GIVEN ORDERED, BINDU. WELL. AFEBRILE AND VITAL SIGNS STABLE. RESP. EVEN AND UNLABORED. NO ACUTE DISTRESS NOTED. IVF INTACT AND INFUSING WELL, SITE CLEAR. WILL CONTINUE TO MONITOR.
[2019-09-28 07:11] LABS: BASOPHIL % 1.5 % (0-2); PLATELET COUNT 189 x10^3mcL (130-400); RED CELL DISTRIBUTION WIDTH 14.4 % (11.5-14.5)
[2019-09-28 07:15] VITALS: BP 136/87
[2019-09-28 08:14] LABS: CALCIUM 9.1 mg/dL (8.5-10.1); CARBON DIOXIDE 22.8 mmol/L (21-32); CHLORIDE SERUM 107 mmol/L (98-107); CREATININE SERUM 1.2 mg/dL (0.7-1.3); GFR1 > 60 mL/min; GLUCOSE SERUM 72 mg/dL (74-106); PHOSPHOROUS 3.2 mg/dL (2.5-4.9); SODIUM SERUM 138 mmol/L (136-145)
--- NOTE | 2019-09-28 08:30 | NUR ---
AAO TIMES 4. TELE # 28 SR. LUNGS CTA. NO SOB.O2 SAT ON RA 96%. BS'S ACTIVE TIMES 4. SHIN WITH GENERALIZED WEAKNESS. SHNI. IV SITE CDI. FLAT AFFECT. NO C/O PAIN. OPTIFOAM TO COCCYX/SACRAL AREA.
[2019-09-28 11:56] VITALS: BP 125/80
--- NOTE | 2019-09-28 15:37 | NUR ---
PHYSICAL THERAPY DAILY NOTES CO-SIGN All documentation done by the [facility] Spiritual Care Coordinator for 09/28/19 has been reviewed. I agree with the documentation. Reviewed/Co-Signed by: Mary Barba PT Documentation Done by: JOLYNN HINDS, SPT
[2019-09-28 17:36] VITALS: BP 135/92
--- NOTE | 2019-09-28 17:51 | NUR ---
AAO TIMES 4. MED SURG PATIENT. GAVE NORCO PO AT 1651 FOR C/O LEG/FEET PAIN. COOPERATIVE. IV SITE CDI. NO SOB. WATCHING TV, EATING DINNER.
--- NOTE | 2019-09-28 20:00 | NUR ---
RECEIVED PT IN BED WITH EYES CLOSED, PT IS EASILY AROUSABLE. DENIES CHEST PAIN. LUNG SOUNDS CLEAR. BREATHING EASILY ON ROOM AIR. BS ACTIVE IN ALL FOUR QUADS. NO ABD PAIN NOTED. INCONTINENT OF URINE. GENERALIZED WEAKNESS, PT USES WHEELCHAIR WHICH IS AT BEDSIDE. ERTHEMA NOTED TO BUTTOCKS, OPTIFOAM INPLACE. NS INFUSING AT 70ML/HR TO RFA. SITE INTACT. SHIFT ASSESSMENT COMPLETED. CALL LIGHT WITHIN REACH. BED IS IN LOWEST POSITION. WILL CONTINUE TO MONITOR CLOSELY.
[2019-09-28 20:45] VITALS: BP 111/77
--- NOTE | 2019-09-29 00:20 | NUR ---
PT RESTING IN BED IN NO DISTRESS. IVF ONGOING. CALL LIGHT WITHIN REACH. BED IS IN LOWEST POSITION. WILL CONTINUE TO MONITOR CLOSELY.
[2019-09-29 05:38] VITALS: BP 149/94
--- NOTE | 2019-09-29 06:25 | NUR ---
LINENS AND GOWN CHANGED. ALL DUE MEDS GIVEN ORDERED. IVF ONGOING. PT RESTING IN BED IN NO DISTRESS. WILL ENDORSE TO INCOMING SHIFT.
[2019-09-29 07:01] LABS: CALCIUM 9.4 mg/dL (8.5-10.1); CARBON DIOXIDE 25.6 mmol/L (21-32); CHLORIDE SERUM 106 mmol/L (98-107); CREATININE SERUM 1.2 mg/dL (0.7-1.3); GFR1 > 60 mL/min; GLUCOSE SERUM 75 mg/dL (74-106); MAGNESIUM 2.1 mg/dL (1.8-2.4); PHOSPHOROUS 3.5 mg/dL (2.5-4.9); POTASSIUM SERUM 3.9 mmol/L (3.5-5.1); SODIUM SERUM 140 mmol/L (136-145)
[2019-09-29 07:17] LABS: BASOPHIL % 1.3 % (0-2); PLATELET COUNT 191 x10^3mcL (130-400)
[2019-09-29 07:22] LABS: RED CELL DISTRIBUTION WIDTH 14.6 % (11.5-14.5)
[2019-09-29 07:50] VITALS: BP 149/91
--- NOTE | 2019-09-29 08:26 | NUR ---
AAO TIMES 4. MED SURG PATIENT. LUNGS CTA. NO SOB. O2 SAT ON RA 96%. BS'S ACTIVE TIMES 4. SHIN WITH GENERALIZED WEAKNESS. PERIPHERAL PULSES PALPABLE. NO EDEMA. NO SOB. COOPERATIVE WITH A FLAT AFFECT.
[2019-09-29 12:05] VITALS: BP 134/85
--- NOTE | 2019-09-29 15:11 | NUR ---
PHYSICAL THERAPY DAILY NOTES CO-SIGN All documentation done by the Manager Of Purchasing for 09/29/19 has been reviewed. I agree with the documentation. Reviewed/Co-Signed by: Mary Barba PT Documentation Done by: BEAU RAWLS, DRIVER'S LICENSE EXAMINER
[2019-09-29 16:37] VITALS: BP 143/94
--- NOTE | 2019-09-29 17:47 | NUR ---
AAO TIMES 4. MED SURG PATIENT. NO C/O PAIN. NO SOB. VS'S STABLE. COOPERATIVE BUT WITH A FLAT AFFECT. HE DIDN'T GET UP WITH PT THIS AM, HAMZAH THE TAPPING MACHINE OPERATOR AUTOMATIC TALKE WITH HIM ABOUT GETTING INTO A SNF AT DISCHARGE, THAT IT REQUIRES EFFORT WITH PT TO GET ACCEPTED. IV SITE CDI.
--- NOTE | 2019-09-29 20:00 | NUR ---
PATIENT RECEIVED AWAKE, ALERT, ORIENTED X4 IN BED. RESPIRATION EVEN AND UNLABORED, ON ROOM AIR. ONGOING 0.9% NS AT 70 CC/HR INFUSING WELL AT THE RIGHT FOREARM. NO EDEMA NOTED. LBM 09/26/19, REFUSED COLACE. INCONTINENT OF URINE AT TIMES, USES URINAL. GENERALIZED WEAKNESS TO EXTREMITIES, USES WHEELCHAIR. ERYTHEMA TO COCCYX/BUTTOCKS COVERED WITH OPTIFOAM, ERYTHEMA TO SCROTUM- Z GUARD APPLIED. GETS EASILY IRRITABLE AT TIMES AND UNCOOPERATIVE WITH CARE AT TIMES. ON CONTACT ISOLATION FOR MDRO OF URINE.
[2019-09-29 21:23] VITALS: BP 142/102
--- NOTE | 2019-09-30 05:51 | NUR ---
PATIENT RESTING IN BED, RESPIRATION EVEN AND UNLABORED. DENIES PAIN AT THIS TIME. IV SITE TO RIGHT FOREARM PATENT AND INTACT. ON CONTACT ISOLATION FOR MDRO AND E COLI OF URINE. ASSISTED WITH NEEDS. SAFETY OBSERVED. PLACED BED IN THE LOWEST POSITION. PLACED CALL LIGHT WITHIN REACH AT ALL TIMES.
[2019-09-30 06:07] VITALS: BP 120/85
--- NOTE | 2019-09-30 07:30 | NUR ---
SEEN RESTING WITH EYES CLOSED. NO RESP DISTRESS NOTED. BREATHING E/U ON ROOM AIR. LUNG SOUND CTA. ON CONTACT ISOLATION FOR MDRO IN URINE. IVF NS TO RFA INFUSING WELL AT 70ML/HR. CALL LIGHT NOTED PLACED WITHIN EASY REACH. SIDERAILS UP X2.
[2019-09-30 08:15] VITALS: BP 148/97
--- NOTE | 2019-09-30 09:50 | NUR ---
AM SCHEDULED MEDS GIVEN. DENIES PAIN AT THIS TIME. NOTED FINISHED 100% OF BREAKFAST. GEN BODY WEAKNESS. NOTED OWN WHEELCHAIR AT BEDSIDE. 500ML YELLOW URINE IN COLOR VIA URINAL, URINAL EMPTIED. ROCEPHIN INFUSING WELL TO RFA IV SITE. CALL LIGHT PLACED WITHIN EASY REACH. SIDERAILS UP X2.
[2019-09-30 11:16] VITALS: BP 148/97
--- NOTE | 2019-09-30 11:35 | NUR ---
1. Recommend continuing 2g Na diet. 2. Recommend Ensure high protein QD. Discussed with VIRIDIANA Dominique.
--- NOTE | 2019-09-30 11:35 | NUR ---
Initial Nutrition Assessment: 234/B VASHTI DIETRICH IA HR Dx: AIDS, hypokalemia, accelerated HTN PMHx: COPD, CHF, HTN, AIDS, PE PSHx: None Labs: ALB 3.0L, AST 44H, ALT 73H Meds: Colace, neutronin, NS, Zestril, zofran Diet: 2gm Na PO intake since admission: (09/29) dinner, lunch 50%, breakfast 90%, (09/28) dinner 40%, lunch 50%, breakfast 100% Ht: 182.88 cm (72") Wt: 58.7 kg (129#) BMI: 17.6 kg/m2 Bed scale: 59.2 kg IBW: 178# (81 kg) %IBW: 72 UBW: 58-59 kg (per previous assessments) Age: 53/M Food Allergies: NKFA Skin: erythema to coccyx, buttocks covered with optifoam Chong: 15 Edema: none GI: Last BM: 09/26 Per H&P, Pt is a 53 years male with PMH of COPD, CHF, HTN, AIDS, PE came in to the ED with c/o generalized weakness and dizziness for [address] Note (09/30): Patient was very lethargic and appeared very weak. Patient did not communicate d/t lethargy and weakness. Per progress note (09/29), patient does not want to speak as he states he is very weak. Per RN Supin, pt finished all of his breakfast this morning and does not have any N/V/D/C at this time. Patient appears to be malnourished and underweight. Problem with: N/V/D/C: none per RN Supin Problems with: Chewing: Swallowing: none Current appetite: good per RN Recent wt change: none %wt change: n/a Vitamin/Supplement use: none Special diet at home: Regular Physical activity: sedentary Nutrition education given: not possible at this time Food-drug interactions: none Education given: n/a Estimated Nutritional Needs Based on current body weight (59 kg) Energy: 4570-6294 kcal/day (35-40 kcal/kg for AIDS) Protein: 71-82 g/day (1.2-1.4 g/kg for AIDS) Fluid: 5998-8562 mL/day (1 mL/kcal) Nutrition Diagnosis: 1. Increased nutrient needs related to AIDS as evidenced by BMI 17.6 kg/m2 and estimated calorie and protein needs. Intervention 1. Recommend continuing 2g Na diet. 2. Recommend Ensure high protein QD. Discussed with INKER AND OPAQUER Catina. Monitor/Evaluate Goal: PO intake at least 75% of estimated needs Monitor: PO intake, Labs, GI function F/U in 3-5 days as moderate risk 2/1-3
[2019-09-30 11:40] VITALS: BP 132/81
--- NOTE | 2019-09-30 13:13 | NUR ---
P.T. NOTES PATIENT REFUSED TO BE SEEN AT THIS TIME, STATES RESTING AND NOT FEELING WELL.
--- NOTE | 2019-09-30 15:29 | NUR ---
PHYSICAL THERAPY DAILY NOTES CO-SIGN All documentation done by the Occupational Therapy Specialist for 09/30/19 has been reviewed. I agree with the documentation. Reviewed/Co-Signed by: Cy Gates PT Documentation Done by:NELSON JIMENEZ PTA
[2019-09-30 16:03] VITALS: BP 123/72
--- NOTE | 2019-09-30 18:57 | NUR ---
NO ANY DISTRESS THROUGHOUT SHIFT. VSS. REFUSED PAIN MEDS OFFERRED. ALL NEEDS ATTENDED. IVF NS INFUSING WELL.
--- NOTE | 2019-09-30 19:10 | NUR ---
CARE ASSUMED FROM OUTGOING RN. PT RESTING COMFORTABLY IN BED. NO ACUTE DISTRESS NOTED. EVEN AND UNLABORED RESPIRATIONS ON RA. MEDSURG PT. IV PATENT AND INTACT RUNNING FLUIDS PER EMAR. NO C/O PAIN AT THIS TIME. CONTACT ISOLATION IN PLACE. BED IN LOWEST POSITION. SIDE RAILS UPX2. CALL LIGHT WITHIN REACH. WILL CONTINUE TO MONITOR.
[2019-09-30 19:24] VITALS: BP 139/86
--- NOTE | 2019-10-01 00:10 | NUR ---
PT RESTING IN BED C/O DIZZINESS AND 9/10 RIGHT FOOT PAIN, MEDICATED PER EMAR. EVEN AND UNLABORED RESPIRATIONS ON RA. IV PATENT AND INTACT RUNNING FLUIDS PER EMAR. CONTACT PRECAUTION IN PLACE. BED IN LOWEST POSITION. SIDE RAILS UPX2. CALL LIGHT WITHIN REACH. WILL REASSESS FOR PAIN AND CONTINUE TO MONITOR.
[2019-10-01 05:11] VITALS: BP 132/84
--- NOTE | 2019-10-01 06:13 | NUR ---
PT RESTING IN INTERVALS THROUGHOUT THE SHIFT. ALL NEEDS TENDED TO AND MET. EVEN AND UNLABORED RESPIRATIONS ON RA. IV PATENT AND INTACT RUNNING FLUIDS PER EMAR. C/O RIGHT FOOT PAIN MEDICATED PER EMAR. CONTACT ISOLATION IN PLACE. BED IN LOWEST POSITION. SIDE RAILS UPX2. CALL LIGHT WITHIN REACH. WILL ENDORSE TO ONCOMING SHIFT.
--- NOTE | 2019-10-01 07:50 | NUR ---
SEEN PATIENT WALKING ASSISTED BY PHYSICAL THERAPY USING WALKER. NO ACUTE DISTRESS NOTED. S/L TO RFA INTACT AND PATENT. CONTACT ISOLATION MAINTAINED FOR MDRO IN URINE.
[2019-10-01 09:31] VITALS: BP 103/67
--- NOTE | 2019-10-01 10:22 | NUR ---
PHYSICAL THERAPY DAILY NOTES CO-SIGN All documentation done by the Truck Despatcher for 10/01/19 has been reviewed. I agree with the documentation. Reviewed/Co-Signed by: Mary Barba PT Documentation Done by: BEAU RAWLS, SHEET ROCK SANDER
[2019-10-01 12:12] VITALS: BP 104/70
[2019-10-01 17:41] VITALS: BP 135/96
--- NOTE | 2019-10-01 18:15 | NUR ---
NO ANY DISTRESS THROUGHOUT SHIFT. NORCO 1 TAB PO GIVEN X1 FOR FOOT PAIN WITH GOOD RELIEF. ALL SCHEDULED MEDS GIVEN, ALL NEEDS ATTENDED. VOIDS FREELY USING URINAL TOLERATED TO CARDIAC DIET WELL. IVF NS AT 70ML/HR INFUSING WELL TO RFA IV SITE.
[2019-10-01 21:05] VITALS: BP 141/86
--- NOTE | 2019-10-01 23:45 | NUR ---
PT RESTING COMFORTABLY IN BED. C/O PAIN, REDNESS TO IV SITE, DC'ED, CATHETER INTACT, PRESSURE APPLIED, NO BLEEDING NOTED. NEW IV INSERTED TO DANIEL, GOOD BLOOD RETURN, FLUSHING WELL. C/O NAUSEA MEDICATED PER EMAR, IV FLUIDS RUNNIG PER EMAR. BED IN LOWEST POSITION. SIDE RAILS UPX2. CALL LIGHT WITHIN REACH. WILL CONTINUE TO MONITOR.
[2019-10-02 05:02] VITALS: BP 123/84
[2019-10-02 06:13] LABS: BASOPHIL % 1.4 % (0-2); PLATELET COUNT 202 x10^3mcL (130-400); RED CELL DISTRIBUTION WIDTH 14.4 % (11.5-14.5)
--- NOTE | 2019-10-02 06:28 | NUR ---
PT RESTED IN INTERVALS THROUGHOUT THE SHIFT. ALL NEEDS TENDED TO AND MET. C/O NAUSEA MEDICATED PER EMAR. IV PATENT AND INTACT RUNNING FLUIDS PER EMAR. ZGUARD APPLIED TO BUTTOCKS AND SCROTUM, OPTIFOAM PLACED, CDI. CONTACT ISOLATION IN PLACE. BED IN LOWEST POSITION. SIDE RAILS UPX2. CALL LIGHT WITHIN REACH. WILL ENDORSE TO ONCOMING SHIFT.
[2019-10-02 06:34] LABS: CALCIUM 8.7 mg/dL (8.5-10.1); CARBON DIOXIDE 23.6 mmol/L (21-32); CHLORIDE SERUM 102 mmol/L (98-107); CREATININE SERUM 1.2 mg/dL (0.7-1.3); GFR1 > 60 mL/min; GLUCOSE SERUM 75 mg/dL (74-106); POTASSIUM SERUM 4.3 mmol/L (3.5-5.1); SODIUM SERUM 135 mmol/L (136-145)
[2019-10-02 07:28] VITALS: BP 140/89
--- NOTE | 2019-10-02 07:32 | NUR ---
RECIEVED REPORT FROM [facility] NURSE. PATIENT IS CURRENTLY OBSERVED SLEEPING IN BED. IV INFUSING NS AT 70cc/hour TO THE RIGHT UPPER ARM. PATIENT IS CURRENTLY ON CONTACT ISOLATION FOR E. COLI IN THE URINE AND MDRO. PATIENT CURRENTLY RECIEVING IV AND PO ANTIBIOTICS.
[2019-10-02 11:37] VITALS: BP 114/80
--- NOTE | 2019-10-02 14:45 | NUR ---
PHYSICAL THERAPY DAILY NOTES CO-SIGN All documentation done by the [employer] Superintendent for 10/02/19 has been reviewed. I agree with the documentation. Reviewed/Co-Signed by: Mary Barba PT Documentation Done by: BEAU RAWLS, REVENUE ANALYST
--- NOTE | 2019-10-02 15:38 | NUR ---
PATIENT RESTING COMFORTABLY IN BED. PICTURES TAKEN OF SACRAL PRESSURE BRUISING AND PLACED IN CHART. NO COMPLAINT OF PAIN FROM PATIENT AT THIS TIME. IV CURRENTLY INFUSING NS AT 70cc/hour to RIGHT AC. PATIENT REPOSITIONED AND TURNED.
[2019-10-02 15:57] VITALS: BP 122/83
--- NOTE | 2019-10-02 18:07 | NUR ---
PATIENT CURRENTLY OBSERVED AWAKE ALERT AND ORIENTED AND IN BED EATING DINNER. PATIENT HAS HAD A GOOD APETITE THROUGHOUT THE SHIFT. PATIENT WAS ABLE TO AMBULATE WITH PHYSICAL THERAPY TODAY. WE ARE CURRENTLY AWAITING PLACEMENT IN A SNF FOR PHYSICAL REHABILITATION FOR THIS PATIENT.
[2019-10-02 22:36] VITALS: BP 122/86
--- NOTE | 2019-10-03 03:15 | NUR ---
2000-PT RESTING IN BED WATCHING TV. SPEECHIS KOMAL, WILL CONTINUE TO MONITOR.
--- NOTE | 2019-10-03 03:17 | NUR ---
0000-PT PRESENTED 300ML URINE TIMOTEO COLORED. HE DID REQUEST SNACKS X2, HE ATE ALL.
--- NOTE | 2019-10-03 04:35 | NUR ---
PT IS RESTING WITH EYES CLOSED AT THIS TIME. NO C/O NOTED.
[2019-10-03 06:25] VITALS: BP 114/79
[2019-10-03 06:38] LABS: BASOPHIL % 1.2 % (0-2); PLATELET COUNT 200 x10^3mcL (130-400); RED CELL DISTRIBUTION WIDTH 14.1 % (11.5-14.5)
[2019-10-03 07:19] LABS: CHLORIDE SERUM 102 mmol/L (98-107); CREATININE SERUM 1.2 mg/dL (0.7-1.3); GFR1 > 60 mL/min; GLUCOSE SERUM 74 mg/dL (74-106); SODIUM SERUM 135 mmol/L (136-145)
--- NOTE | 2019-10-03 07:30 | NUR ---
RECIEVED REPORT FROM [facility] NURSE. PATIENT OBSERVED SLEEPING IN BED. NS INFUSING TO RAC AT 70cc/hour. RESPIRATORY RATE REGULAR- CHEST RISE AND FALL SYMMETRICAL. BED IN THE LOW POSITION. SAFETY PRECAUTIONS IN PLACE. WILL CONTINUE TO MONITOR PATIENT. CURRENTLY AWAITING PLACEMENT IN SNF FOR CONTINUED PHYSICAL THERAPY FOR THIS PATIENT. PATIENT CONTINUES TO REMAIN ON CONTACT PRECAUTIONS.
[2019-10-03 09:05] VITALS: BP 112/79
--- NOTE | 2019-10-03 16:04 | NUR ---
PHYSICAL THERAPY DAILY NOTES CO-SIGN All documentation done by the Orchestra Teacher for 10/03/19 has been reviewed. I agree with the documentation. Reviewed/Co-Signed by: Yesika Sheehan PT Documentation Done by:RUBY NGUYEN OYSTER FARMER POC REVIEWED W/ OYSTER FARMER
[2019-10-03 17:41] VITALS: BP 121/84
--- NOTE | 2019-10-03 18:33 | NUR ---
PATIENT CURRENTLY OBSERVED RESTING IN BED. NO SIGNS OR SYMPTOMS OF DISTRESS. PATIENT CURRENTLY RECIEVING NS IV FLUIDS AT 70cc/hour. CONTACT PRECAUTIONS STILL IN PLACE. PATIENT AMBULATED WITH PT TO CORNER OF ROOM. GENERALIZED WEAKNESS CONTINUES TO REMAIN AT PRESENT. CURRENTLY AWAITING PLACEMENT IN A [facility] FOR CONTIUED PHYSICAL THERAPY REHABILITATION. PATIENT CALM AND COOPERATIVE THROUGHT SHIFT. NO REPORT OF PAIN THROUGHOUT SHIFT. WILL ENDORSE CARE TO INCOMING NOC NURSE. CALL LIGHT WITHIN REACH. WHEELCHAIR AT BEDSIDE.
--- NOTE | 2019-10-03 19:30 | NUR ---
PT RECIEVED FROM DAY NURSE. PT RESTING IN BED AT THIS TIME. DENIES PAIN OR DISCOMFORT. BREATHING E/U ON RA. DENIES SOB. PT MS, DENIES CP, NV, DIZZINESS, OR PALPATATIONS. PALPABLE PULSES, NO EDEMA NOTED AT THIS TIME. ABD SOFT AND ROUND, DENIES PAIN TO PALPATION. GENERALIZED WEAKNESS, WHEELCHAIR AT BEDSIDE. PT REPOSITIONS SELF IN BED. ERYTHEMA NOTED TO BUTTOCKS. IV TO RAC, CDI. BED AT LOWEST POSITION. CALL LIGHT WITHIN REACH. WILL CONTINUE TO MONITOR.
[2019-10-03 20:00] VITALS: BP 114/76
--- NOTE | 2019-10-04 | NUR ---
PT RESTING IN BED AT THIS TIME. DENIES PAIN OR DISCOMFORT. BREATHING E/U ON RA. NO S/S OF DISTRESS NOTED AT THIS TIME. WILL CONTINUE TO MONITOR.
[2019-10-04 05:30] VITALS: BP 138/88
--- NOTE | 2019-10-04 06:06 | NUR ---
PT RESTING IN BED AT THIS TIME. DENIES PAIN OR DISCOMFORT. BREATHING E/U ON RA. NO S/S OF ACUTE DISTRESS NOTED. ALL NEEDS AND CONCERNS ADDRESSED THIS SHIFT. IV INTACT AND INFUSING. BED AT LOWEST POSITION. CALL LIGHT WITHIN REACH. WILL CONTINUE TO MONITOR.
--- NOTE | 2019-10-04 07:15 | NUR ---
RECIEVED REPORT FROM [facility] NURSE KENISHA. PATIENT STABLE THROUGHOUT THE NIGHT. PAIN WELL CONTROLLED THROUGHOUT THE NIGHT. NO REPORT OF PAIN THIS TIME. NS CURRENTLY INFUSING TO THE RAC AT 70cc/HOUR. PATIENT CONTINUES TO REMIAN ON CONTACT ISOLATION FOR POSITIVE MDRO AND E.COLI IN THE URINE. PATIENT CURRENTLY RECIEVING IV ANTIBIOTIC TREATMENT - WHITE BLOOD CELLS CURRENTLY WITHIN NORMAL RANGE. WE ARE CURRENTLY AWAITING [facility] FACILITY PLACEMENT FOR THIS PATIENT. SAFETY PRECAUTIONS ARE CURRENTLY IN PLACE. BED IS IN THE LOW POSITION. CALL LIGHT IS WITHIN REACH.
--- NOTE | 2019-10-04 13:17 | NUR ---
1. Recommend continue 2g Na diet with Ensure high protein qd.
--- NOTE | 2019-10-04 13:17 | NUR ---
Follow-up Nutrition Assessment: Ruddy Barry 234-B Dx: generalized weakness/AIDS Labs: (10/03) Na:135L, BUN:26H, Meds: Apresoline, Bactrim, Colace, Coreg, Hydralazine, Neurontin, Rocephin, NS IV, Tylenol, Zestril, Zithromax and Zofran Diet: 2gm Na with ensure high protein 1 daily PO intake: (10/02) B:100% L:50% D:90% no PO intake for 10/03-10/04 Weights: (09/30) 58.7kg (10/04) 59kg Skin: errythmea to buttocks Edema: none Last BM: 09/30 Per progress note 10/04, pt is still weak and plan is pending SNF placement. During visit, pt was seen laying in bed, appeared weak but reported to no GI issues and tolerating PO diet. Estimated Nutritional Needs on current body weight: 59kg Energy: 2065-2360kcal/day (35-40kcal/day for AIDS) Protein: 71-82g/day (1.2-1.4 for AIDS) Fluid: 2065-2360ml/day (1ml/kcal) Nutrition Diagnosis 1. Increased nutrient needs related to AIDS as evidenced by BMI: 17.6kg.m2 and estimated kcal and protein needs (ongoing) Intervention/RDN Recommendation(s): 1. Recommend continue 2g Na diet with Ensure high protein qd. Monitor/Evaluate Previous goal: PO intakes to meet at least 75% of estimated needs (met) Goal: PO intakes to meet at least 75% of estimated needs and gradual weight gain Monitor: PO intake, Labs, GI function, Skin integrity, Weights. F/U in 3-5 days as moderate risk (2/5-7)
--- NOTE | 2019-10-04 15:10 | NUR ---
PATIENT CURRENTLY AWAKE ALERT AND ORIENTED AND RESTING IN BED WATCHING TV. PATIENT APPEARS WEAK AND STATES THAT HE IS FEELING FATIGUED. PATIENT RECIEVED A BREATING TREATMENT WITH RESPIRATORY THERAPY IN THE AM. NO REPORT OF SOB AT THIS TIME. PERSISTENT GENERALIZED WEAKNESS REMAINS A CONCERN. PATIENT CONTINUES TO HAVE A STRONG APETITE DESPITE STATE OF PERSISTANT AND GENERALIZED WEAKNESS. CURRENTLY ON IV FLUIDS NS INFUSING TO LEFT FOREARM AT 70cc/hour. PATIENT ALSO RECIEVED ANTIBIOTICS PER PHYSICIAN ORDER. FALL PROTOCOLS IN PLACE.
--- NOTE | 2019-10-04 15:53 | NUR ---
CALLED TO PATIENT'S ROOM BY PATIENT. PATIENT STATES HE ACCIDENTLY SPILLED URINAL ON HIMSELF. PATIENT CLEANED, BEDDING CHANGED, SHEETS CHANGED, NEW GOWN PLACED ON PATIENT. PATIENT CONTINUES TO REMAIN WEAK. PATIENT HAS DIFFICULTY WITH STANDING FOR LONGER THAN SIX SECONDS.
--- NOTE | 2019-10-04 18:19 | NUR ---
PATIENT CURRENTLY OBSERVED AWAKE ALERT AND ORIENTED. PATIENT IN BED WATCHING TV. IV FLUIDS DISCONTINUED PER NURSE PRACTIONER ORDER. IV CURRENTLY SALINE LOCKED TO RAC. PATIENT REMAINS ON CONTACT PRECAUTIONS AT THIS TIME. PATIENT REPORTS OF RIGHT FOOT PAIN. CONTACTED NURSE PRACTIONER AND RECIEVED ORDER FOR PO NORCO. PATIENT GIVEN MEDICATION PER ORDER AND EMAR. FALL PRECAUTIONS REMAIN IN PLACE FOR THIS PATIENT. CURRENTLY AWAITING OUTPATIENT SNF PLACEMENT FOR THIS PATIENT. CALL LIGHT WITHIN REACH. BED IN THE LOW POSITION. WILL ENDORSE CARE TO NOC NURSE.
[2019-10-04 18:54] VITALS: BP 102/71
--- NOTE | 2019-10-04 19:17 | NUR ---
RECEIVED PT FROM AM SHIFT. PT IS A/O X4, VERBAL RESPONSIVE. C/O MILD HEADACHE, TYLENOL IS GIVEN. LUNG SOUND CLEAR BILATERAL, OCCASIONALLY DRY COUGH, BOWEL SOUND PRESENT ALL 4 QUADRANTS, NO DISTENTION, N0 TENDER. PEDAL PULSE PRESENT BOTH FEET, NO EDEMA, IV AT LEFT FA, AND LEFT WRIST, NO LEAKING, ON INFILTRATION, ALL ADLS ASSIST, ALL NEED MET, CALL LIGHT IN REACH, WILL CONTINUE TO MONITOR.
--- NOTE | 2019-10-04 19:37 | NUR ---
RECEIVED PT FROM AM, PT IS A/O X4, VERBAL RESPONSIVE. LUNG SOUND CLEAR BILATERAL, NO COUGH, NO SOB. PT DENY ANY CHEST PAIN OR DISCOMFORT. BOWEL SOUND PRESENT ALL 4 QUADRANT, NO DISTENTION, NO TENDER. PEDAL PULSE PRESENT BOTH FEET, NO EDEMA. IV AT RIGHT AC, NO LEAKING, NO INFILTRATION. THERE IS BLANCHABLE ERYTHEMA AT SACRAL AREA. OPTIFORM IN PLACE. ALL ADLS ASSIST, ALL NEED MET, CALL LIGHT IN REACH, WILL CONTINUE TO MONITOR.
--- NOTE | 2019-10-04 19:43 | NUR ---
RECEIVED PT FROM AM, PT IS A/O X4, VERBAL RESPONSIVE. LUNG SOUND CLEAR BILATERAL, NO COUGH, NO SOB. PT DENY ANY CHEST PAIN OR DISCOMFORT. BOWEL SOUND PRESENT ALL 4 QUADRANT, NO DISTENTION, NO TENDER. PEDAL PULSE PRESENT BOTH FEET, NO EDEMA. IV AT RIGHT AC, NO LEAKING, NO INFILTRATION. THERE IS OPEN WOUND AT SACRAL AREA. DRESSING CDI. ALL ADLS ASSIST, ALL NEED MET, CALL LIGHT IN REACH, WILL CONTINUE TO MONITOR.
--- NOTE | 2019-10-04 20:00 | NUR ---
CALLED AND TALKED TO DR. ALCALA REGARDING THE DR. CHENG NOTES CONTINUE PT ATB. DR. ALCALA MADE AWARE.
[2019-10-04 21:37] VITALS: BP 115/65
[2019-10-05 05:00] VITALS: BP 122/85
--- NOTE | 2019-10-05 05:17 | NUR ---
PT IS A/O, VERBAL RESPONSIVE. DENY ANY RESPIRATORY DISTRESS, DENY ANY PAIN OR DISCOMFORT AT THIS MOMENT, TOOK THE PICTURE OF ERYTHEMA AT SACRAL/BUTTOCKS AREA. Z GUARD APPLIED AND OPTIFOAM APPLIED. IV AT AC, NO LEAKING, NO INFILTRAITON. ALL ADLS ASSIST, ALL NEED MET, CALL LIGHT IN REACH, WILL CONTINUE TO MONITOR.
--- NOTE | 2019-10-05 07:20 | NUR ---
RECEIVED PT SITTING UP IN BED. NO ACUTE DISTRESS. AAOX4. REPORTS SLIGHT DIZZINESS. RESP EVEN AND UNLABORED ON RA. IV TO RAC, NO REDNESS OR SWELLING NOTED. HOB ELEVATED. GEN WEAKNESS. FALL PRECAUTIONS. CONTACT ISOLATION. BED IN LOW POSITION, CALL LIGHT WITHIN REACH. WILL CONTINUE TO MONITOR.
[2019-10-05 08:36] VITALS: BP 92/64
[2019-10-05 11:45] VITALS: BP 108/64
[2019-10-05 12:56] VITALS: BP 108/64
--- NOTE | 2019-10-05 14:50 | NUR ---
PHYSICAL THERAPY DAILY NOTES CO-SIGN All documentation done by the Furnace Loader for 10/05/19 has been reviewed. I agree with the documentation. Reviewed/Co-Signed by: Mary Braba PT Documentation Done by: BEAU RAWLS, RADARMAN
--- NOTE | 2019-10-05 14:50 | NUR ---
PT IN NO ACUTE DISTRESS. AWAKE, ALERT, AND ORIENTED. VSS. DISCHARGE EDUCATION PROVIDED, PT PASSIVE WITH EDUCATION. BELONGINGS WITH PT. IV DC'D WITH CATHETER INTACT. BELONGINGS WITH PT. DARWIN LANCE AT BEDSIDE SPEAKING WITH PT.
== END 2019-10-05 16:10 | disposition home or self-care (01) | DRG 894 ==
LOC: ED 22:07 → MU 09-27 01:29 → DU 09-27 01:29 → MU 09-28 12:04
PROVIDERS: Family Medicine; Specialist; ADMIT Student in an Organized Health Care Education/Training Program
DX: E86.0 Dehydration (principal); B20 Human immunodeficiency virus [HIV] disease; E43 Unspecified severe protein-calorie malnutrition; I11.0 Hypertensive heart disease with heart failure; I50.9 Heart failure, unspecified; J44.1 Chronic obstructive pulmonary disease with (acute) exacerbation; I16.0 Hypertensive urgency; E87.6 Hypokalemia; F15.10 Other stimulant abuse, uncomplicated; R74.0 Nonspecific elevation of levels of transaminase and lactic acid dehydrogenase [LDH]; I25.10 Atherosclerotic heart disease of native coronary artery without angina pectoris; T46.5X6A Underdosing of other antihypertensive drugs, initial encounter; F12.10 Cannabis abuse, uncomplicated; M62.50 Muscle wasting and atrophy, not elsewhere classified, unspecified site; F17.210 Nicotine dependence, cigarettes, uncomplicated; Z59.0 Homelessness; Z99.3 Dependence on wheelchair; Z86.711 Personal history of pulmonary embolism; Z68.1 Body mass index [BMI] 19.9 or less, adult; Z86.73 Personal history of transient ischemic attack (TIA), and cerebral infarction without residual deficits; Y92.89 Other specified places as the place of occurrence of the external cause
CPT/HCPCS: 36600; 83880; 84439; 87804; 94150; 97116-GP; 97530-GP; G0378; J0360; J0696; J2185; J2405; J3490; J7030; J7060; J7620; Q0092

== ENCOUNTER 2019-10-22 10:45 | Inpatient (IN) | payer OTHER ==
[~2019-10-22] VITALS: Ht 177.8 cm; Wt 56.2 kg
[2019-10-22 10:51] VITALS: Ht 177.8 cm; Wt 56.2 kg
[2019-10-22 13:25] LABS: CARBON DIOXIDE 28.8 mmol/L (21-32); CHLORIDE SERUM 105 mmol/L (98-107); GFR1 > 60 mL/min; GLUCOSE SERUM 101 mg/dL (74-106); POTASSIUM SERUM 3.3 mmol/L (3.5-5.1); SODIUM SERUM 142 mmol/L (136-145)
[2019-10-22 13:36] LABS: ALKALINE PHOSPHATASE 68 U/L (46-116); ALT/SGPT 76 U/L (16-63); AST/SGOT 36 U/L (15-37); BILIRUBIN TOTAL 0.6 mg/dL (0.20-1.00); CHOLESTEROL 165 mg/dL (<200); HDL CHOLESTEROL 40 mg/dL (40-60); MAGNESIUM 1.9 mg/dL (1.8-2.4); TOTAL PROTEIN, SERUM 7.5 g/dL (6.4-8.2)
[2019-10-22 13:38] LABS: ALBUMIN 3.2 g/dL (3.4-5.0)
[2019-10-22 13:44] LABS: BASOPHIL % 1.2 % (0-2); PLATELET COUNT 154 x10^3mcL (130-400)
[2019-10-22 15:20] LABS: UA SPECIFIC GRAVITY 1.025 (1.005-1.035); microscopic required? YES; urine erythrocyte NEGATIVE (NEGATIVE)
[2019-10-22] MEDS ORDERED: LISINOPRIL1 PO1 (16:46)
[2019-10-22] MEDS ORDERED: BACTRIM1 TAB (16:46)
[2019-10-22 19:51] VITALS: BP 165/109
[2019-10-22 23:26] VITALS: BP 153/103
[2019-10-23] VITALS (7 sets, daily range): BP systolic 139–155; BP diastolic 78–112
[2019-10-23 07:21] LABS: BASOPHIL % 1.1 % (0-2)
[2019-10-23 07:27] LABS: PLATELET COUNT 125 x10^3mcL (130-400)
[2019-10-23 07:47] LABS: CALCIUM 8.6 mg/dL (8.5-10.1); CHLORIDE SERUM 107 mmol/L (98-107); GFR1 > 60 mL/min; GLUCOSE SERUM 88 mg/dL (74-106); MAGNESIUM 1.7 mg/dL (1.8-2.4); PHOSPHOROUS 2.8 mg/dL (2.5-4.9); POTASSIUM SERUM 3.5 mmol/L (3.5-5.1); SODIUM SERUM 141 mmol/L (136-145)
[2019-10-23 11:32] LABS: AMPHETAMINE QUAL UR POSITIVE (See below)
[2019-10-24 05:20] VITALS: BP 137/102
[2019-10-24 06:56] LABS: BASOPHIL % 0.7 % (0-2); PLATELET COUNT 133 x10^3mcL (130-400); RED CELL DISTRIBUTION WIDTH 13.8 % (11.5-14.5)
[2019-10-24 07:03] LABS: CALCIUM 8.6 mg/dL (8.5-10.1); CARBON DIOXIDE 24.2 mmol/L (21-32); CHLORIDE SERUM 106 mmol/L (98-107); GFR1 > 60 mL/min; GLUCOSE SERUM 81 mg/dL (74-106); POTASSIUM SERUM 3.8 mmol/L (3.5-5.1); SODIUM SERUM 138 mmol/L (136-145)
[2019-10-24 08:58] VITALS: BP 165/115
[2019-10-24 09:52] VITALS: BP 152/101
[2019-10-24 12:09] VITALS: BP 149/104
[2019-10-24 16:25] VITALS: BP 144/96
[2019-10-24 19:15] VITALS: BP 149/94
[2019-10-25 04:33] VITALS: BP 167/100
[2019-10-25 06:49] LABS: BASOPHIL % 0.9 % (0-2); RED CELL DISTRIBUTION WIDTH 14.3 % (11.5-14.5)
[2019-10-25 06:58] LABS: CALCIUM 9.2 mg/dL (8.5-10.1); CARBON DIOXIDE 24.3 mmol/L (21-32); CHLORIDE SERUM 106 mmol/L (98-107); GFR1 > 60 mL/min; GLUCOSE SERUM 86 mg/dL (74-106); POTASSIUM SERUM 3.9 mmol/L (3.5-5.1); SODIUM SERUM 141 mmol/L (136-145)
[2019-10-25 07:06] LABS: PLATELET COUNT 128 x10^3mcL (130-400)
[2019-10-25 08:09] VITALS: BP 143/93
[2019-10-25 12:13] VITALS: BP 145/97
[2019-10-25 17:00] VITALS: BP 153/98
[2019-10-25 19:11] VITALS: BP 171/113
[2019-10-26 04:01] VITALS: BP 165/109
[2019-10-26 06:36] LABS: BASOPHIL % 0.5 % (0-2); PLATELET COUNT 137 x10^3mcL (130-400); RED CELL DISTRIBUTION WIDTH 13.8 % (11.5-14.5)
[2019-10-26 07:02] LABS: CALCIUM 9.3 mg/dL (8.5-10.1); CARBON DIOXIDE 26.9 mmol/L (21-32); CHLORIDE SERUM 97 mmol/L (98-107); CREATININE SERUM 1.1 mg/dL (0.7-1.3); GFR1 > 60 mL/min; GLUCOSE SERUM 85 mg/dL (74-106); SODIUM SERUM 133 mmol/L (136-145)
[2019-10-26 09:19] VITALS: BP 147/94
[2019-10-26 17:50] VITALS: BP 128/75
[2019-10-26 21:07] VITALS: BP 159/105
[2019-10-27 06:17] VITALS: BP 164/100
[2019-10-27 08:11] VITALS: BP 150/105
[2019-10-27] MEDS ORDERED: ZES20 PO (11:23)
[2019-10-27] MEDS ORDERED: CAT0.1 PO (11:23)
[2019-10-27] MEDS ORDERED: APR25 PO (11:24)
[2019-10-27 12:30] VITALS: BP 92/64
[2019-10-27 15:11] VITALS: BP 92/64
[2019-10-27 16:22] VITALS: BP 99/72
[2019-10-27 18:22] VITALS: BP 99/72
== END 2019-10-27 21:59 | DRG 894 ==
LOC: ED 10:45 → DU 17:47 → MU 17:47 → DU 19:39 → MU 19:40
PROVIDERS: Emergency Medicine; ADMIT Family Medicine
DX: B20 Human immunodeficiency virus [HIV] disease (principal); E43 Unspecified severe protein-calorie malnutrition; I11.0 Hypertensive heart disease with heart failure; I50.9 Heart failure, unspecified; F15.20 Other stimulant dependence, uncomplicated; E86.0 Dehydration; E87.6 Hypokalemia; I16.0 Hypertensive urgency; J44.9 Chronic obstructive pulmonary disease, unspecified; I25.10 Atherosclerotic heart disease of native coronary artery without angina pectoris; I25.2 Old myocardial infarction; F12.10 Cannabis abuse, uncomplicated; F17.210 Nicotine dependence, cigarettes, uncomplicated; Z79.899 Other long term (current) drug therapy; Z88.6 Allergy status to analgesic agent; Z86.73 Personal history of transient ischemic attack (TIA), and cerebral infarction without residual deficits; Z68.25 Body mass index [BMI] 25.0-25.9, adult; Z86.711 Personal history of pulmonary embolism; Z59.0 Homelessness
CPT/HCPCS: 83880; 94150; 97110-GP; 97116-GP; 97530-GP; 99406; G0378; J2405; J3490; J7030; Q0092